=== PATIENT | female | born 1965 | race Caucasian/White ===

== ENCOUNTER → 2019-03-25 10:51 | Outpatient (CLI) | payer OTHER, SELFPAY ==
--- NOTE | 2019-03-25 10:55 | XR_ITS ---
PROCEDURE: XR FOOT WT BEARING RT 3V CLINICAL INDICATION: pain Right foot pain COMPARISON: No exams were available for comparison FINDINGS: No fracture or dislocation. No lytic or blastic change. There is normal mineralization. There are mild osteoarthritic changes at the 1st MTP joint with hypertrophic change of the distal aspect of the 1st metatarsal. Small calcaneal spurs noted Other findings:None. 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
--- NOTE | 2019-03-25 10:55 | XR_ITS ---
PROCEDURE: XR FOOT WT BEARING LT 3V CLINICAL INDICATION: pain COMPARISON: XR FOOT WT BEARING RT 3V from 03/25/2019 FINDINGS: No fracture or dislocation. No lytic or blastic change. There is normal mineralization. There are minimal osteoarthritic changes of the 1st MTP joint with mild bony hypertrophy at the distal aspect of the 1st metatarsal. There is some hypertrophy also along the lateral aspect of the 2nd MTP joint. Small calcaneal spurs present. Other findings:None. IMPRESSION: Mild osteoarthritis 1st MTP joint with bony hypertrophy at the lateral aspect of the 2nd metatarsophalangeal joint Dictated by: Manuelito Daniel MD 03/25/2019 12:33 Electronically signed by Manuelito Daniel MD in [place] 03/25/2019 12:33
[2019-03-25 14:43] LABS: Basophils # 0.1 K/mm3 (0-0.2); Basophils % 0.7 % (0.1-2.0); Eosinophils # 0.2 K/mm3 (0.0-0.4); Eosinophils % 1.7 % (0.1-12.0); Hematocrit 49.4 % (37.0-47.0); Lymphocytes # 2.9 K/mm3 (0.7-4.5); Lymphocytes % 24.4 % (10-50); Mean Corpuscular HGB Conc 32.5 g/dL (31.8-35.4); Mean Corpuscular Hemoglobin 31.6 pg (27.0-31.2); Mean Corpuscular Volume 97.2 fl (81-99); Mean Platelet Volume 7.8 fl (7.4-10.4); Monocytes # 0.4 K/mm3 (0.1-1.0); Monocytes % 3.4 % (1.7-9.3); Neutrophils # 8.4 K/mm3 (1.8-7.8); Neutrophils % 69.7 % (37.0-80.0); Platelet Count 228 K/mm3 (142-424); Red Blood Count 5.08 M/mm3 (4.20-5.40); Red Cell Distribution Width 13.7 % (11.5-17.5)
[2019-03-25 16:15] LABS: Alanine Aminotransferase 27 U/L (12-78); Albumin/Globulin Ratio 1.5 (1.1-1.8); Alkaline Phosphatase 51 U/L (46-116); Aspartate Amino Transferase 16 U/L (15-37); Bilirubin,Total 0.4 mg/dL (0.2-1.0); Blood Urea Nitrogen 12 mg/dL (7-18); Calcium 9.4 mg/dL (8.5-10.1); Carbon Dioxide 30 mmol/L (21.0-32.0); Chloride 107 mmol/L (98-107); Creatinine,Serum 0.77 mg/dL (0.55-1.02); Estimated Glomerular Filt Rate 78 ml/min (>60); GFR (African American) 94 ML/MIN (>60); Globulin 2.7 gm/dl (1.3-3.2); Glucose 98 mg/dL (74-106); Sodium 144 mmol/L (136-145); Total Protein,Serum 6.7 gm/dL (6.4-8.2)
[2019-03-25 16:17] LABS: C-Reactive Protein < 0.2 mg/dL (0.0-0.9)
[2019-03-25 16:21] LABS: Erythrocyte Sedimentation Rate 38 mm/hr (0-30)
== END ==
PROVIDERS: PCP Family Medicine; Visit Provider Podiatrist
DX: M79.672 Pain in left foot (principal); M79.671 Pain in right foot; T81.49XA Infection following a procedure, other surgical site, initial encounter
CPT/HCPCS: 36415; 73630; 80053; 85025; 85651; 86140

== ENCOUNTER → 2019-04-01 15:39 | Outpatient (POV) | payer OTHER, SELFPAY | PROVIDERS: Visit Provider Specialist | DX: M79.604 Pain in right leg (principal); M79.671 Pain in right foot; R20.2 Paresthesia of skin | CPT/HCPCS: 95886; 95910 ==

== ENCOUNTER → 2019-04-19 14:18 | Outpatient (CLI) | payer OTHER, SELFPAY ==
[2019-04-19 14:42] LABS: Blood Urea Nitrogen 14 mg/dL (7-18); Estimated Glomerular Filt Rate 87 ml/min (>60); GFR (African American) 105 ML/MIN (>60)
== END ==
PROVIDERS: Visit Provider Podiatrist
DX: T81.41XA Infection following a procedure, superficial incisional surgical site, initial encounter (principal)
CPT/HCPCS: 36415; 82565; 84520

== ENCOUNTER → 2019-04-19 14:59 | Outpatient (CLI) | payer OTHER, SELFPAY ==
--- NOTE | 2019-04-19 15:02 | MR_ITS ---
PROCEDURE: MR FOOT RT WO/W CON CLINICAL INDICATION: eval. for abscess/ bone infection Previous surgery with plantar fasciectomy with pain and redness, infected postop wound COMPARISON: XR FOOT WT BEARING LT 3V from 03/25/2019 TECHNIQUE: Routine multiplanar multi echo sequences are performed without and with gadolinium enhancement. FINDINGS: No obvious fracture or dislocation. There is increased T2 signal involving the proximal and mid aspect of the 2nd metatarsal. This does show some mild enhancement. There is some increase in T2 signal of the soft tissues surrounding the proximal aspect of the 2nd metatarsal with some mild enhancement.. At the proximal and medial aspect of the plantar fascia just distal to the spur of the calcaneus there is some soft tissue thickening with isointensity on T1 slightly hyperintense on the STIR images with some mild enhancement. This may represent postsurgical scarring. Cannot exclude underlying inflammation/infection. This does not appear to be an abscess.. There is some increased T2 signal surrounding the peroneal tendons suggesting tendonitis the. There is some mild enhancement in this area as well. There is mild hallux valgus with osteoarthritic change of the 1st MTP joint. IMPRESSION: 1. At the proximal and medial aspect of the plantar fascia just distal to the spur of the calcaneus there is some soft tissue thickening with isointensity on T1 slightly hyperintense on the STIR images with some mild enhancement. This may represent postsurgical scarring. Cannot exclude underlying inflammation/infection. This does not appear to be an abscess.. 2. Mild diffuse increased T2 signal with some mild enhancement at the proximal mid aspect of the 2nd metatarsal with some mild enhancement of the surrounding soft tissues. This is nonspecific and could be inflammatory/infectious or even due to a stress fracture. Please correlate with clinical parameters Dictated by: Manuelito Daniel MD 04/22/2019 05:38 Electronically signed by Manuelito Daniel MD in [place] 04/22/2019 05:38
== END ==
PROVIDERS: Visit Provider Podiatrist
DX: T81.41XA Infection following a procedure, superficial incisional surgical site, initial encounter (principal); T81.49XA Infection following a procedure, other surgical site, initial encounter; T81.40XA Infection following a procedure, unspecified, initial encounter
CPT/HCPCS: 36415; 73720; 82565; 84520; A9576

== ENCOUNTER → 2019-05-21 11:11 | Outpatient (CLI) | payer OTHER, SELFPAY ==
[2019-05-21 12:06] LABS: Basophils # 0.1 K/mm3 (0-0.2); Basophils % 0.8 % (0.1-2.0); Eosinophils # 0.2 K/mm3 (0.0-0.4); Eosinophils % 2.6 % (0.1-12.0); Hematocrit 51.1 % (37.0-47.0); Hemoglobin 16.7 g/dL (12.2-16.2); Lymphocytes # 2.1 K/mm3 (0.7-4.5); Lymphocytes % 30.2 % (10-50); Mean Corpuscular HGB Conc 32.7 g/dL (31.8-35.4); Mean Corpuscular Hemoglobin 31.2 pg (27.0-31.2); Mean Corpuscular Volume 95.3 fl (81-99); Mean Platelet Volume 8.1 fl (7.4-10.4); Monocytes # 0.3 K/mm3 (0.1-1.0); Monocytes % 4.9 % (1.7-9.3); Neutrophils # 4.3 K/mm3 (1.8-7.8); Neutrophils % 61.6 % (37.0-80.0); Platelet Count 226 K/mm3 (142-424); Red Blood Count 5.36 M/mm3 (4.20-5.40); Red Cell Distribution Width 13.1 % (11.5-17.5)
[2019-05-21 13:22] LABS: Alanine Aminotransferase 23 U/L (12-78); Albumin Level 3.9 gm/dL (3.4-5.0); Albumin/Globulin Ratio 1.3 (1.1-1.8); Alkaline Phosphatase 48 U/L (46-116); Anion Gap 14.3 mEq/L (5-15); Aspartate Amino Transferase 9 U/L (15-37); Bilirubin,Total 0.5 mg/dL (0.2-1.0); Blood Urea Nitrogen 14 mg/dL (7-18); Calcium 9.4 mg/dL (8.5-10.1); Carbon Dioxide 28 mmol/L (21.0-32.0); Chloride 103 mmol/L (98-107); Creatinine,Serum 0.69 mg/dL (0.55-1.02); Estimated Glomerular Filt Rate 88 ml/min (>60); GFR (African American) 107 ML/MIN (>60); Globulin 2.9 gm/dl (1.3-3.2); Glucose 87 mg/dL (74-106); Potassium 4.3 mmoL/L (3.5-5.1); Sodium 141 mmol/L (136-145); Total Protein,Serum 6.8 gm/dL (6.4-8.2)
[2019-05-21 13:27] LABS: C-Reactive Protein < 0.2 mg/dL (0.0-0.9)
[2019-05-21 15:49] LABS: Erythrocyte Sedimentation Rate 6 mm/hr (0-30)
== END ==
PROVIDERS: Visit Provider Podiatrist
DX: T81.49XA Infection following a procedure, other surgical site, initial encounter; G89.18 Other acute postprocedural pain; T81.41XA Infection following a procedure, superficial incisional surgical site, initial encounter
CPT/HCPCS: 36415; 80053; 85025; 85651; 86140

== ENCOUNTER → 2020-03-10 13:14 | Outpatient (CLI) | payer OTHER, SELFPAY ==
--- NOTE | 2020-03-10 13:17 | MM_ITS ---
PROCEDURE: MM DIG SCREENING MAMM BI W/CAD Referring Doctor: Callum Leiva Patient Age:54Y CLINICAL INDICATION: SCREENING: No hormones, no new complaints. Noncontributory family history. Previous stereotactic biopsy left breast COMPARISON: MG DIGMAMMDX MAMMOGRAM DX-MANAGER OF DEVELOPMENT N/C from 04/06/2009 MG DMSB DIGITAL MAMM-SCREEN BILATERAL from 10/01/2010 MG DMSB DIGITAL MAMM-SCREEN BILATERAL from 10/03/2012 TECHNIQUE: Standard CC and MLO images were obtained. R2 CAD reviewed. Bilateral digital breast tomosynthesis included. Additional nipple profile view left breast included FINDINGS: Moderate asymmetry again noted and similar to previous studies but no significant new areas of concern. No suspicious new nor dominant mass. No suspicious calcifications. No significant architectural distortion Ijqt-aw-[id number] residual fibroglandular elements towards superior breast bilaterally Right breast. Stable. No new areas of concern.. Left breast: Stable appearance with no new areas of concern. Small metallic clip upper-outer quadrant left breast from previous stereotactic biopsy again noted IMPRESSION: stable bilateral mammogram with no new areas of concern. Bilateral follow-up 1 year recommended BI-RAD Category: 1 Negative FOLLOW-UP: 1YR 1 Year Follow-up (A letter has been sent to the patient regarding results of the study.) Dictated by: Ravi Barry MD 03/11/2020 12:56 Ravi Barry MD in [place] 03/11/2020 12:56
== END ==
PROVIDERS: PCP Family Medicine; Visit Provider Family Medicine
DX: Z12.31 Encounter for screening mammogram for malignant neoplasm of breast (principal)
CPT/HCPCS: 77063; 77067

== ENCOUNTER 2020-08-05 21:46 | Emergency (ER) | payer OTHER, SELFPAY ==
[2020-08-05 21:55] VITALS: BP 161/100; PULSE 66; RESP 17; O2SAT 98
[2020-08-05 21:56] VITALS: BP 161/100; PULSE 74; RESP 18; TEMP 37.1; O2SAT 99; BMI 33.8
[2020-08-05 22:00] VITALS: BP 150/84; PULSE 73; RESP 16; O2SAT 97
--- NOTE | 2020-08-05 22:05 | XR_ITS ---
PROCEDURE: XR HAND RT MIN 3V CLINICAL INDICATION: Small finger Distal joint deformity COMPARISON: No exams were available for comparison FINDINGS: Flexion deformity of the distal interphalangeal joint of the 5th digit is noted. Possible subluxation of the DIP joint. No evidence of avulsion fractures. No acute fractures or dislocations. Bone density is normal. The carpals, metacarpals and phalanges are otherwise unremarkable. No significant soft tissue abnormality is noted. IMPRESSION: Flexion deformity of the distal interphalangeal joint of the 5th digit. Possible subluxation of the DIP joint. No evidence of acute fractures. Dictated by: Valeria Peña 08/06/2020 08:23 Valeria Peña in [place] 08/06/2020 08:23
--- NOTE | 2020-08-05 22:06 | HMH.EDUPEXT ---
ED Disposition Clinical Impression: Rupture of extensor tendon of finger Disposition: Home, Self-Care Condition on Discharge: Good Instructions: DI for Finger Extensor Tendon Injury Additional Instructions: wear splint and call ortho in am Referrals: Callum Leiva [Primary Care Provider] - Eden Broussard MD [Physician] - - Critical Care Critical Care Time: No Attestation: On 08/05/20, the high probability of a clinically significant, sudden or life threatening deterioration of the following system(s) required my full and direct attention, intervention and personal management. The time I documented below is in addition to time spent performing reported procedures but includes the following listed in this critical care notation. Medical Decision Making - Medical Records Medical records reviewed: Yes: I reviewed the patient's medical records. - Rashel Inquiry Pt receiving controlled substance: No Vital Signs: 08/05/20 21:56 Temperature 98.8 F Temperature Source Oral Pulse Rate [Left] 74 Respiratory Rate 18 Blood Pressure [Right Arm] 161/100 H Blood Pressure Mean [Right Arm] 120 Blood Pressure Source [Right Arm] Automatic Cuff Blood Pressure Position [Right Arm] Sitting 02 Sat by Pulse Oximetry 99 Oxygen Delivery Method Room Air - Lab Data Lab results reviewed: Yes: I reviewed the patient's lab results. Orders (Tests/Meds): ORDERS Category Date Time Status XR hand RT min 3V Stat Exams 08/05/20 22:05 Taken - Radiology Data #1 Image(s): Hand Image Reviewed: Yes I reviewed the patient's radiology image Preliminary Findings: Abnormal (no fx /dislocation) Medical Decision Narrative: ext tendon injury rt fifth finger Upper Extremity HPI - General Chief Complaint: Extremity Injury, Upper Stated Complaint: AO 08/05@2100 injured R Hand Time Seen by Provider: 08/05/20 22:06 Mode of Arrival: Ambulatory Source of Information: Patient, Medical Record Limitations: No Limitations Description of Symptoms (Recalled from ER Triage Doc. by RN): Pt got finger caught up while cleaning bathroom and has deformity to distal joint on right little finger. - History of Present Illness HPI narrative: acute rt fifth finger injury arcelia - complaint: injury to: right, finger Onset (ago): hour(s) Other Extremity Injury: Right: fingers Handedness: right Place: home Severity: moderate Context: direct blow - Related Data Home Medications Medication Instructions Recorded Confirmed gabapentin 100 mg capsule 100 mg PO DAILY #90 cap 03/25/19 08/04/20 fluoxetine 10 mg capsule 10 mg PO DAILY 08/04/20 08/04/20 Previous Rx's Medication Instructions Recorded ibuprofen 800 mg tablet 800 mg PO BID #60 tab 12/23/19 meloxicam 7.5 mg tablet 7.5 mg PO DAILY 90 Days #90 tab 08/04/20 Allergies Allergy/AdvReac Type Severity Reaction Status Date / Time Penicillins [PENICILLINS] Allergy Intermediate SWELLING Verified 08/04/20 10:15 codeine [CODEINE] Allergy Mild VOMITING, Verified 08/04/20 10:15 WHIVES morphine [MORPHINE] Allergy Mild ITCHING Verified 08/04/20 10:15 AND VOMITING Sulfa (Sulfonamide Allergy Mild WHEEZES Verified 08/04/20 10:15 Antibiotics) [SULFA (SULFONAMIDE ANTIBIOTICS)] [facility] History - Hepatitis A Screen Drug use history?: No High risk sexual behaviors?: No History of sexually transmitted infection?: No Currently employed?: No Childcare worker?: No Do you have indoor plumbing?: Yes Do you have electricity?: Yes Attestation statement:: This patient has been screened for Hepatitis A risk factors. I have reviewed the patient's past medical history: Yes Laterality Cases: Right: Other, Bilateral: Tonsillectomy Other Surgeries: Yes: Colonoscopy Amputation: No Fractures: Yes Comment: Right plantar fascia repair 01/25/19. Anterior Cervical Surgery 3,4,5 2008. L3,4,5, Laminectomy. Rosotomy - Social History Smoking Status: Jasen
[2020-08-05 22:30] VITALS: BP 169/99; PULSE 74; RESP 16; O2SAT 98
[2020-08-05 22:38] VITALS: BP 136/81; PULSE 70; RESP 17; O2SAT 97
--- NOTE | 2020-08-05 22:55 | PC.NURSE ---
finger splint placed on right pinky finger.
[2020-08-05 22:57] VITALS: BP 138/82; PULSE 70; RESP 16; TEMP 37.1; O2SAT 97
== END 2020-08-05 23:00 | disposition home or self-care (01) ==
PROVIDERS: Emergency Provider Emergency Medicine; PCP Family Medicine
DX: S66.316A Strain of extensor muscle, fascia and tendon of right little finger at wrist and hand level, initial encounter (principal); W23.0XXA Caught, crushed, jammed, or pinched between moving objects, initial encounter; Y92.019 Unspecified place in single-family (private) house as the place of occurrence of the external cause; Z88.0 Allergy status to penicillin; Z88.2 Allergy status to sulfonamides; Z88.5 Allergy status to narcotic agent
CPT/HCPCS: 29125; 73130; 96372; 99282

== ENCOUNTER → 2020-08-17 10:00 | Outpatient (POV) | payer OTHER, SELFPAY ==
[2020-08-17 10:46] VITALS: BP 142/74; PULSE 74; RESP 18; O2SAT 98; BMI 34.2
--- NOTE | 2020-08-17 12:25 | HMH.PMCON ---
Assessment and Plan (1) CRPS (complex regional pain syndrome type I) Status: Chronic Qualifiers: Complex regional pain syndrome affected site: lower extremity Laterality: right Qualified Code(s): G90.521 - Complex regional pain syndrome I of right lower limb Category: Medical Code(s): G90.50 - Complex regional pain syndrome I, unspecified - Assessment and plan all Dx Assessment and Plan for all problems:: We will start this patient plan of care by changing her medicine from gabapentin to Lyrica 75 mg 1 p.o. twice daily. Also set her up for a sympathetic nerve block with PT following. I will follow-up with her after this reassess her symptoms at that time she has been instructed to call the office if she has any issues prior to her next appointment. Dr. Lopez has reviewed this note and agrees with this plan of care. This note was dictated using voice recognition software and may contain errors or omissions HPI - Data of Consult Consult date: 08/17/20 Requesting Physician: Amita Ryan APRN Primary Care Provider: Callum Leiva - Consult Narrative Reason for consult: CRPS right foot History of present illness: Ms. Dunbar is a 54 year old female who presents today for consultation regards to her CRPS of her right foot. Patient developed this after surgery in 2019. Patient has difficult time with mobility unless wearing a brace. Patient has noted swelling, color changes, temperature changes. She also has an extreme burning sensation in that area. She is currently on gabapentin and does not get much relief from it. Today we spent time discussing options in regards to CRPS treatment. CC: Amita Ryan APRN [facility] History I have reviewed the patient's past medical history: Yes Medical History: Reports:: Anxiety, Hypertension Denies:: Cancer, Diabetes Mellitus Type 1, Diabetes Mellitus Type 2, MRSA *Have you ever received a pneumonia vaccine?: Yes *Have you received a flu vaccine this season?: Yes Other Medical History: Reports: Arthritis Laterality Cases: Right: Other, Bilateral: Tonsillectomy Other Surgeries: Yes: Colonoscopy Amputation: No Fractures: Yes - *Social History Smoking Status: Current every day smoker Tobacco Type: cigarettes # Packs/Day (cigarettes): 1 Alcohol Intake: never Alcohol Intake Frequency:: a few times a month Substance Use Type: denies use *Occupational Status:: employed Housing: house Household Members: other *Travel in the last 8 weeks: None - Psychiatric History Pschychiatric History:: Reports:: Anxiety Family Hx:: Diabetes, Heart Attack, Cancer, Hyperlipidemia, Hypertension Review of Systems - Review of Systems ROS General: no recent weight change, no fever, no sleep disturbances Respiratory: no cough, no shortness of air, no recurring pulmonary infections Cardiovascular/Peripheral Vascular: No chest pain, No palpitations, no edema, no shortness of breath. Gastrointestinal: no new onset incontinence, normal bowel movements reported Genitourinary: no new onset incontinence Musculoskeletal: Right foot pain Psychiatric: normal mood/ affect Neurological: [denies new onset weakness in extremities], [denies new onset balance issues] Meds Home Medications Medication Instructions Recorded Confirmed Type gabapentin 100 mg capsule 100 mg PO DAILY #90 cap 03/25/19 08/07/20 History ibuprofen 800 mg tablet 800 mg PO BID #60 tab 12/23/19 08/07/20 Rx fluoxetine 10 mg capsule 10 mg PO DAILY 08/04/20 08/07/20 History meloxicam 7.5 mg tablet 7.5 mg PO DAILY 90 Days #90 tab 08/04/20 08/07/20 Rx Allergies Allergy/AdvReac Type Severity Reaction Status Date / Time Penicillins [PENICILLINS] Allergy Intermediate SWELLING Verified 08/07/20 10:04 codeine [CODEINE] Allergy Mild VOMITING, Verified 08/07/20 10:04 WHIVES morphine [MORPHINE] Allergy Mild ITCHING Verified 08/07/20 10:04 AND VOMITING Sulfa (Sulfonamide Allergy Mild WHEEZES Veri
== END ==
PROVIDERS: PCP Family Medicine; Visit Provider Clinical Nurse Specialist Family Health
DX: G90.521 Complex regional pain syndrome I of right lower limb (principal)
CPT/HCPCS: 99202; G0463

== ENCOUNTER 2020-09-11 09:49 | Day surgery (SDC) | payer OTHER, SELFPAY ==
[2020-09-11 10:02] VITALS: BP 154/95; PULSE 80; RESP 18; TEMP 36.6; O2SAT 98; BMI 34.0
[2020-09-11 10:30] VITALS: BP 133/85; PULSE 85; RESP 18
[2020-09-11 10:31] VITALS: BP 140/74; PULSE 88; RESP 18; O2SAT 98
--- NOTE | 2020-09-11 10:33 | P.PCN_ITS ---
- Procedure Date: 09/11/20 Time: 10:33 Anesthesiologist:: Jorje Lopez MD Complications:: None Pre-procedure Diagnosis:: Complex regional pain syndrome type 1 of the right lower extremity Post-procedure Diagnosis:: Same Indications for Procedure:: This patient is a pleasant 54-year-old white female who we are treating for complex regional pain syndrome type one of the right lower extremity. She developed this after surgery to her right foot and ankle in 2019. She has autonomic symptoms including swelling, discoloration, temperature changes burning, increased pain and decreased functionality. She is undergoing physical therapy without much success. We will do a epidural sympathetic block today to see if this will help with her pain symptoms and this is to be followed by physi china therapy today. Procedure Details:: Informed consent was obtained and the risk and benefits of the procedure was explained to the patient. The patient was taken to the procedure room. The patient was placed prone on the procedure table. The patient was prepped and draped in sterile fashion. C-arm fluoroscopy was used to view the lumbar spine. Skin and subcutaneous tissues were anesthetized using lidocaine. I placed an 18-gauge epidural needle and advanced into the L5-S1 interspace using fluoroscopic guidance and [id number] to air. After confirmation of needle placement in the epidural space with dye I injected 6 mL of lidocaine 1.5% with Depo-Medrol 80 mg. Patient tolerated the procedure well with no complications. Plan and Disposition:: She is to have physical therapy today. We will follow-up with her in 1 week. Will reevaluate her symptoms and plan on repeat lumbar epidural sympathetic block at that time again to be followed by physical therapy.
[2020-09-11 10:43] VITALS: BP 125/63; PULSE 71; RESP 18; O2SAT 98
== END 2020-09-11 10:44 | disposition home or self-care (01) ==
LOC: SC.PAINP 09:50
PROVIDERS: PCP Family Medicine; Visit Provider Anesthesiology
DX: G90.521 Complex regional pain syndrome I of right lower limb (principal); I10 Essential (primary) hypertension; M19.90 Unspecified osteoarthritis, unspecified site; F41.9 Anxiety disorder, unspecified; Z88.0 Allergy status to penicillin; Z88.6 Allergy status to analgesic agent; Z88.5 Allergy status to narcotic agent; Z88.2 Allergy status to sulfonamides; Z72.0 Tobacco use; F32.9 Major depressive disorder, single episode, unspecified
CPT/HCPCS: 62323; J1040; Q9966

== ENCOUNTER 2020-09-11 10:43 | Outpatient (RCR) | payer OTHER, SELFPAY ==
--- NOTE | 2020-09-11 11:38 | HMH.PTOPEV ---
PT Outpatient Evaluation Rehab PT Outpatient Evaluation Start: 09/11/20 11:22 Freq: Status: Active Protocol: Document 09/11/20 11:22 JAS (Rec: 09/11/20 11:38 JAS [id number]) Electronically Signed By Girish Menon, PT 09/11/20 11:22 Outpatient Therapy Subjective History Subjective History Pt reports failed R foot sx. ( plantar fascia repair) ~2 years. Pt reports R foot sustained severe (95%) nn damage, plantar fascia was not repaired, and now possesses CRPS in the R foot. Pt reports undergoing pain management injection this am to 'numb my right foot and leg, but it's my left leg that's completely numb.' Pt reports follow-up w/ Dr. Rowe in November, Dr. Lopez in late September, and [facility] for new R AFO ' soon'. Pt reports daily severe nn pain, severe weakness, and stiffness in R foot/ankle, 'he (original foot surgeon) ruined my life'. Chief Complaint Pain,Stiff,Swelling,Gives out/ Unstable,Paresthesia,Weakness Symptom Type Ache,Throb,Sharp,Dull,Stabbing ,Burning,Numbness,Tingling Symptoms Relieved By Brace/Support Symptoms Aggravated By Standing,Walking Prior Functional Limitations Standing,Walking Current Functional Limitations Standing,Walking Symptom Description Constant but Variable Level of pain today (0-10) 9 Pain scale - at its best (0-10) 9 Pain scale - at its worst (0-10) 10 Ankle/Foot Eval Gait Observation General Gait Pattern Observation Wide Based Gait Palpation Tenderness right Ankle/Foot Palpation Findings Tenderness Ankle/Foot Palpation Overall Comment 4/4 medial arch, medial ankle area, sx. incision-all hypersensitive ROM Ankle/Foot Dorsiflexion w/Knee Extended 0 Passive Range (degrees) Ankle/Foot Plantar Flexion Passive Range 0-45 of Motion (degrees) Ankle/Foot Eversion Passive Range of 0-12 Motion (degrees) Ankle/Foot Inversion Passive Range of 0-50 Motion (degrees) Ankle/Foot ROM Limitations Soft Tissue Tightness MMT Ankle Dorsiflexion Strength Grade 1 Trace Ankle Plantarflexion Strength Grade 1 Trace Foot Eversion Strength Grade 1 Trace Foot Inv
== END 2020-09-11 10:45 | disposition home or self-care (01) ==
LOC: PT 10:43
PROVIDERS: PCP Family Medicine; Visit Provider Clinical Nurse Specialist Family Health
DX: M79.671 Pain in right foot (principal)
CPT/HCPCS: 97163

== ENCOUNTER 2022-10-30 16:54 | Emergency (ER) | payer MEDICARE, MEDICAID, SELFPAY ==
[2022-10-30] VITALS (9 sets, daily range): BP systolic 112–133; BP diastolic 62–82; PULSE 70–82; RESP 16; TEMP 36.7; O2SAT 95–98; BMI 33.8
--- NOTE | 2022-10-30 17:03 | XR_ITS ---
PROCEDURE INFORMATION: Exam: XR Chest Exam date and time: 10/30/2022 5:13 PM Age: 56 years old Clinical indication: Pain; Chest pressure; Additional info: Cp TECHNIQUE: Imaging protocol: Radiologic exam of the chest. Views: 1 view. COMPARISON: ABDPELW/O CT ABD PELVIS W/O CONTRAST 10/23/2016 1:21 AM FINDINGS: Lungs: No evidence of pneumonia or interstitial edema. Pleural spaces: Unremarkable. No pleural effusion. No pneumothorax. Heart/Mediastinum: Unremarkable. No cardiomegaly. Bones/joints: Unremarkable. Intraperitoneal space: Situs solitus identified on prior CT abdomen and pelvis. IMPRESSION: No evidence of pneumonia or interstitial edema.
--- NOTE | 2022-10-30 17:03 | ECG_ITS ---
APPROVED REPORT Exam: Resting ECG HR:81 bpm ECG Measurements Heart Rate [address] 157 P 62 QRSd 103 QRS 49 QT 405 T 65 QTc 442 Conclusion SINUS RHYTHM LOW QRS VOLTAGE IN PRECORDIAL LEADS [QRS DEFLECTION < 1.0 mV IN CHEST LEADS] BORDERLINE ECG UNCONFIRMED REPORT Electronically signed by : Inderjit Ewing MD 10/31/2022 21:29:52
[2022-10-30 17:16] LABS: Chloride 99 mmol/L (98-107); Potassium 3.3 mmoL/L (3.5-5.1); Sodium 141 mmol/L (136-145)
[2022-10-30 17:18] LABS: Alanine Aminotransferase 56 U/L (12-78); Alkaline Phosphatase 67 U/L (38-126); Aspartate Amino Transferase 50 U/L (14-36); Bilirubin,Total 0.6 mg/dl (0.2-1.3); Blood Urea Nitrogen 13 mg/dl (7-17); Creatinine Clearance Estimated 93 mL/min (50-200); Estimated Glomerular Filt Rate 64 ml/min (>60); GFR (African American) 78 ML/MIN (>60)
[2022-10-30 17:19] LABS: Albumin Level 4.8 g/dl (3.5-5.0); Albumin/Globulin Ratio 1.5 (1.1-1.8); Anion Gap 17.3 mEq/L (5-15); Calcium 9.7 mg/dl (8.4-10.2); Carbon Dioxide 28 mmol/L (22.0-30.0); Globulin 3.3 g/dL (1.3-3.2); Glucose 129 mg/dl (74-100); Lipase 98 U/L (23-300); Total Protein,Serum 8.1 g/dl (6.3-8.2)
[2022-10-30 17:28] LABS: Basophils # 0.1 K/mm3 (0-0.2); Basophils % 0.6 % (0.1-2.0); Eosinophils # 0.1 K/mm3 (0.0-0.4); Eosinophils % 1.4 % (0.1-12.0); Hemoglobin 17.1 g/dL (12.2-16.2); Lymphocytes # 3.3 K/mm3 (0.7-4.5); Mean Corpuscular HGB Conc 36.3 g/dL (31.8-35.4); Mean Corpuscular Hemoglobin 33.2 pg (27.0-31.2); Mean Corpuscular Volume 91.2 fl (81-99); Mean Platelet Volume 8.4 fl (7.4-10.4); Monocytes # 0.4 K/mm3 (0.1-1.0); Monocytes % 4.3 % (1.7-9.3); Neutrophils % 60.8 % (37.0-80.0); Platelet Count 218 K/mm3 (142-424); Red Blood Count 5.15 M/mm3 (4.20-5.40); Red Cell Distribution Width 13.5 % (11.5-17.5); White Blood Count 9.9 K/mm3 (4.8-10.8)
--- NOTE | 2022-10-30 17:30 | HMH.EDGENADL ---
Discharge Plan Disposition Patient Disposition: Home, Self-Care Chief Complaint: Chest Pain Prescriptions Prescriptions: No Action gabapentin 100 mg capsule 100 mg PO TID Qty: 90 Label Comments: TAKE 1 CAPSULE BY MOUTH 3 TIMES A DAY duloxetine 60 mg capsule,delayed release(DR/EC) 60 mg PO nicotine 21 mg/24 hr patch 24 hour 1 patch TRANSDERMA meloxicam [Mobic] 7.5 mg tablet 7.5 mg PO DAILY 90 Days Qty: 90 2RF ibuprofen 800 mg tablet 800 mg PO BID Qty: 60 3RF Referrals Follow up/Referrals: Callum Leiva MD [Primary Care Provider] - See instructions Clinical Impressions Clinical Impression: Chest pain Discharge ED Provider: Mak Cordova General Adult HPI General Chief complaint: Chest Pain Stated complaint: Chest pain Time Seen by Provider: 10/30/22 17:02 Mode of Arrival: EMS Source of Information: Patient and EMS Limitations: No Limitations Description of Symptoms (Recalled from ER Triage Doc. by RN): 56 yo F presents to ED with c/o chest pain that began last night into today. pt reports pain has increased throughout the day. pt reports pain feels like an elephant is sitting on her chest. pain is located in middle of left chest. History of Present Illness HPI narrative: This is a 56-year-old female with history of COPD and tobacco use presenting with chest pain. Patient states that she started having chest pain 1 day prior to arrival. Today on 10/30, patient said that she was in the shower and syncopized. Woke up on the floor. Shortly thereafter she was sitting on the couch and had an intense chest pain. It felt like elephants or standing on my chest, did not radiate, associate with shortness of breath, multiple episodes of vomiting, diaphoresis, and weakness. Only medications patient takes are 800 mg ibuprofen daily and gabapentin. Currently presenting with the same symptoms. Related Data Home Medications Medication Instructions Recorded Confirmed duloxetine 60 mg capsule,delayed 60 mg PO 11/17/20 11/17/20 release gabapentin 100 mg capsule 100 mg PO TID Pain #90 caps 11/17/20 11/17/20 nicotine 21 mg/24 hr daily 1 patch transdermal 11/17/20 11/17/20 transdermal patch Previous Rx's Medication Instructions Recorded ibuprofen 800 mg tablet 800 mg PO BID pain, mild #60 tabs 12/23/19 meloxicam 7.5 mg tablet (Mobic) 7.5 mg PO DAILY pain 90 days #90 08/04/20 tabs Allergies Allergy/AdvReac Type Severity Reaction Status Date / Time Penicillins [PENICILLINS] Allergy Intermediate SWELLING Verified 11/17/20 11:28 codeine [CODEINE] Allergy Mild VOMITING, Verified 11/17/20 11:28 WHIVES morphine [MORPHINE] Allergy Mild ITCHING Verified 11/17/20 11:28 AND VOMITING Sulfa (Sulfonamide Allergy Mild WHEEZES Verified 11/17/20 11:28 Antibiotics) [SULFA (SULFONAMIDE ANTIBIOTICS)] [facility] Disclaimer: The information contained in this section may have been updated after the patient was seen, as this information can be updated by other users. Social History Smoking Status: Current every day smoker tobacco type: cigarettes packs per day: 1 second hand exposure: Yes alcohol intake: never substance use type: denies use current occupational status: disabled Travel in the last 8 weeks: None household members: other housing: house current occupational exposures/hazards: No caffeine: Yes ROS Obtained: Yes All systems reviewed & no additional complaints except as documented Physical Exam General General appearance: alert and in no apparent distress Head Head exam: atraumatic, normocephalic and normal inspection Eye Eye exam: Present normal appearance, PERRL and EOMI ENT ENT exam: Present normal exam, normal oropharynx, mucous membranes moist, TM's normal bilaterally and normal external ear exam Neck Neck exam: Present normal inspection, full ROM and trachea midline; Absent meningismus or lymphadenopathy
[2022-10-30 17:32] LABS: Troponin I < 0.01 ng/ml (0.00-0.034)
--- NOTE | 2022-10-30 20:02 | PC.NURSE ---
3 hr Trop sent
[2022-10-30 20:35] LABS: Troponin I < 0.01 ng/ml (0.00-0.034)
== END 2022-10-30 20:47 | disposition home or self-care (01) ==
PROVIDERS: Emergency Provider Emergency Medicine; PCP Family Medicine
DX: R07.89 Other chest pain (principal); R55 Syncope and collapse; J44.9 Chronic obstructive pulmonary disease, unspecified; R11.10 Vomiting, unspecified; F17.210 Nicotine dependence, cigarettes, uncomplicated
CPT/HCPCS: 71045; 80053; 83605; 83690; 84484; 85025; 93005; 99285

== ENCOUNTER → 2022-11-04 13:19 | Outpatient (CLI) | payer MEDICARE, MEDICAID, SELFPAY ==
--- NOTE | 2022-11-04 13:41 | MM_ITS ---
PROCEDURE INFORMATION: Exam: MG Bilateral Screening 3D Mammography Exam date and time: 11/04/2022 1:31 PM Age: 56 years old Clinical indication: Screening examination TECHNIQUE: Imaging protocol: Bilateral Screening tomosynthesis and 2D mammography including computer-aided detection (CAD) when performed. COMPARISON: 1. MG MM DIG SCREENING MAMM BI W/CAD 03/10/2020 1:28 PM 2. MG DMSB DIGITAL MAMM-SCREEN BILATERAL 10/03/2012 8:50 AM FINDINGS: MAMMOGRAPHY: Breast composition: There are scattered areas of fibroglandular density. Mass: None. Architectural distortion: None. Calcifications: No suspicious calcifications. Asymmetric density: None. Skin thickening: None. Axillary adenopathy: None. IMPRESSION: No mammographic evidence of malignancy. Annual screening is recommended unless otherwise clinically indicated. ASSESSMENT: BI-RADS Category 1: Negative
== END ==
PROVIDERS: PCP Family Medicine; Visit Provider Family Medicine
DX: Z12.31 Encounter for screening mammogram for malignant neoplasm of breast (principal)
CPT/HCPCS: 77063; 77067

== ENCOUNTER 2023-09-26 14:13 | Inpatient (IN) | payer MEDICARE, MEDICAID, SELFPAY ==
[2023-09-26] VITALS (23 sets, daily range): BP systolic 86–163; BP diastolic 53–82; PULSE 70–133; RESP 16–40; TEMP 36.4–38.6; O2SAT 92–100; BMI 35.4; BMI 30.2
--- NOTE | 2023-09-26 14:13 | ECG_ITS ---
APPROVED REPORT Exam: Resting ECG HR:108 bpm ECG Measurements Heart Rate 108 AXES MO 116 P 48 QRSd 88 QRS 40 QT 343 T 35 QTc 406 Conclusion SINUS TACHYCARDIA Electronically signed by : RADHA STARK, 09/28/2023 15:47:26
--- NOTE | 2023-09-26 14:18 | XR_ITS ---
FINAL REPORT CLINICAL HISTORY: fever tachycardia, cough, cp smoker no chest surgeries COMPARISON: 10/30/2022 FINDINGS: TWO-VIEW CHEST The heart size is normal. The mediastinum is normal. There is linear density in the minor fissure, probably related to small amount of fluid. There are mild chronic changes in both lungs. Fusion hardware is seen in the lower cervical spine. There is no pneumothorax. IMPRESSION: Linear density in the minor fissure, probably related to small amount of fluid. Reviewed, Interpreted and Dictated by Victor Hugo Hudson MD Transcribed by Maritza Neil Authenticated and [facility]
[2023-09-26 14:27] LABS: VBG Base Excess 1.9 mmol/L (-2.4-2.3); VBG HCO3 26.6 mmol/L (23-30); VBG Oxygen Saturation 76.7 % (50-70); VBG PCO2 43.4 mmol/L (35-51); VBG PH 7.41 mmol/L (7.31-7.41); VBG PO2 37.9 mmol/L (28-40); VBG Total CO2 27.9 mmol/L (23-27)
[2023-09-26 14:28] LABS: Basophils % 0.6 % (0.1-2.0); Eosinophils % 0.6 % (0.1-12.0); Hematocrit 45.4 % (37.0-47.0); Hemoglobin 15.6 g/dL (12.2-16.2); Lymphocytes # 0.5 K/mm3 (0.7-4.5); Lymphocytes % 7.4 % (10-50); Mean Corpuscular HGB Conc 34.4 g/dL (31.8-35.4); Mean Corpuscular Hemoglobin 31.9 pg (27.0-31.2); Mean Corpuscular Volume 92.7 fl (81-99); Mean Platelet Volume 8.9 fl (7.4-10.4); Monocytes # 0.1 K/mm3 (0.1-1.0); Monocytes % 0.8 % (1.7-9.3); Neutrophils # 6.6 K/mm3 (1.8-7.8); Neutrophils % 90.7 % (37.0-80.0); Platelet Count 152 K/mm3 (142-424); Red Blood Count 4.89 M/mm3 (4.20-5.40); Red Cell Distribution Width 14.7 % (11.5-17.5); White Blood Count 7.3 K/mm3 (4.8-10.8)
[2023-09-26 14:31] LABS: Lactate Venous 4.3 mmol/L (0.4-2.0)
[2023-09-26 14:33] LABS: Alanine Aminotransferase 61 U/L (12-78); Albumin Level 3.5 g/dl (3.5-5.0); Albumin/Globulin Ratio 1.2 (1.1-1.8); Alkaline Phosphatase 186 U/L (38-126); Anion Gap 14.5 mEq/L (5-15); Aspartate Amino Transferase 60 U/L (14-36); Bilirubin,Total 1.1 mg/dl (0.2-1.3); Blood Urea Nitrogen 17 mg/dl (7-17); Calcium 8.8 mg/dl (8.4-10.2); Carbon Dioxide 28 mmol/L (22.0-30.0); Chloride 99 mmol/L (98-107); Creatinine Clearance Estimated 72 mL/min (50-200); Estimated Glomerular Filt Rate 46 ml/min (>60); GFR (African American) 56 ML/MIN (>60); Glucose 135 mg/dl (74-100); Potassium 3.5 mmoL/L (3.5-5.1); Sodium 138 mmol/L (136-145); Total Protein,Serum 6.5 g/dl (6.3-8.2)
[2023-09-26 14:36] LABS: MANUAL DIFFERENTIAL MANUAL DIFFERENTIAL (MANUAL DIFF)
[2023-09-26] MEDS: KETOROLAC 30MG/ML VIAL 15 MG IV (14:47)
[2023-09-26] MEDS: ACETAMINOPHEN 1,000MG/100ML VIAL 1000 MG IV (14:47)
[2023-09-26 14:48] LABS: Troponin I < 0.01 ng/ml (0.00-0.034)
[2023-09-26] MEDS: LACTATED RINGERS 1000ML 1,000 ML 999 ML IV (14:48)
[2023-09-26 14:54] LABS: Lymphocytes % 10 % (10-50); Monocytes % 2 % (2-9); Neutrophils % 82 % (42-76); Platelet Estimate Normal; RBC Morphology Normal; Total Cells Counted 100; Toxic Granulation 1+
[2023-09-26 15:04] LABS: Thyroid Stimulating Hormone 1.78 uIU/mL (0.465-4.68)
--- NOTE | 2023-09-26 15:15 | ED_ITS ---
Discharge Plan Disposition Patient Disposition: Admitted Condition: Fair Clinical Impressions Clinical Impression: Pneumonia, Acute hypoxemic respiratory failure Discharge ED Provider: Flavia Duenas HPI General Chief Complaint: Chest Pain Stated Complaint: Chest Pain Time Seen by Provider: 09/26/23 14:18 Mode of Arrival: EMS Source of Information: Patient Limitations: No Limitations Description of Symptoms (Recalled from ER Triage Doc. by RN): Patient reports vomiting, headache, chest pressure and sob. History of Present Illness HPI narrative: Please note that above description of symptoms, in this electronic medical record under categorization of recalled from ER triage doctor by RN are reflective of an initial nursing assessment, however, is not reflective of my full history and physical exam that was personally taken and clarified. Consequentially, this preceding description of symptoms, which may include the patient's categorized chief complaint in the EMR, do not reflect my personal clinical impression, and the ultimate description of history of present illness and patient stated complaints should be deferred to this section of the note. Unless stated otherwise or congruent with this section of the note, additional signs, symptoms, or incongruence should be interpreted as inaccurate with my clinical impression. Related Data Home Medications Medication Instructions Recorded Confirmed gabapentin 100 mg capsule 400 mg PO TID Pain #90 caps 11/17/20 09/26/23 Previous Rx's Medication Instructions Recorded ibuprofen 800 mg tablet 800 mg PO BID pain, mild #60 tabs 12/23/19 Allergies Allergy/AdvReac Type Severity Reaction Status Date / Time Penicillins [PENICILLINS] Allergy Intermediate SWELLING Verified 11/17/20 11:28 codeine [CODEINE] Allergy Mild VOMITING, Verified 11/17/20 11:28 WHIVES morphine [MORPHINE] Allergy Mild ITCHING Verified 11/17/20 11:28 AND VOMITING Sulfa (Sulfonamide Allergy Mild WHEEZES Verified 11/17/20 11:28 Antibiotics) [SULFA (SULFONAMIDE ANTIBIOTICS)] [facility] Disclaimer: The information contained in this section may have been updated after the patient was seen, as this information can be updated by other users. Medical History Class II obesity Surgical History H/O foot surgery Family History (Updated 09/26/23 @ 17:43 by Daniele Wilkerson MD) Other Dementia Social History (Updated 09/26/23 @ 18:48 by Sonam Mcgill RN) Smoking Status: Current every day smoker tobacco type: cigarettes packs per day: 1 second hand exposure: Yes alcohol intake: never substance use type: denies use current occupational status: disabled Travel in the last 8 weeks: None household members: other housing: house current occupational exposures/hazards: No caffeine: Yes ROS Obtained: Yes All systems reviewed & no additional complaints except as documented Physical Exam General General appearance: alert Neck Neck exam: Present trachea midline Chest Chest inspection: Present normal inspection and symmetric chest wall rise Respiratory Respiratory exam: Present normal lung sounds bilaterally and wheezes (Right- sided isolated); Absent respiratory distress, stridor, accessory muscle use or prolonged expiratory phase Cardiovascular Cardiovascular exam: Present normal rhythm and tachycardia Abdominal Exam Abdominal exam: Present soft; Absent distention, tenderness or guarding Extremities Exam Extremities exam: Absent edema Neurological Exam Neurological exam: Present alert, oriented X3 and CN II-XII intact Skin Skin exam: Present warm and dry; Absent cyanosis, diaphoresis or pallor HEART Score HEART Score HEART Score assessment performed?: No Critical Care Critical Care Time Critical Care Time: Yes (resp) Attestation: On 09/26/23, the high probability of a clinically significant, sudden or life threatening deterioration of the following system(s) required my full and direct attention, intervention and personal management. The time I documented below is in addition to time spent performing reported procedures but includes the following listed in this critical care notation. Total Time Total Critical Care Time: 60 Medical Decision Making Medical Records Medical records reviewed: Yes I reviewed the patient's medical records. Rashel Inquiry Pt receiving controlled substance: No Rashel was queried for this patient: No Vital Signs Vital Signs: 09/26/23 14:14 09/26/23 14:30 09/26/23 15:45 Temperature 101.5 F H Temperature Source Oral Pulse Rate 103 H 96 H Pulse Rate [Radial] 109 H Respiratory Rate 16 Blood Pressure 117/54 L 123/71 Blood Pressure [Right Arm] 110/66 Blood Pressure Mean Blood Pressure Mean [Right Arm] 80 Blood Pressure Source Blood Pressure Source [Right Arm] Automatic Cuff Blood Pressure Position Blood Pressure Position [Right Arm] Sitting 02 Sat by Pulse Oximetry 92 L 94 L 95 Oxygen Delivery Method Room Air 09/26/23 16:01 09/26/23 16:30 09/26/23 17:01 Temperature Temperature Source Pulse Rate 95 H 98 H 97 H Pulse Rate [Radial] Respiratory Rate Blood Pressure 95/53 L 104/58 L 98/63 L Blood Pressure [Right Arm] Blood Pressure Mean 77 Blood Pressure Mean [Right Arm] Blood Pressure Source Blood Pressure Source [Right Arm] Blood Pressure Position Blood Pressure Position [Right Arm] 02 Sat by Pulse Oximetry 93 L 94 L 93 L Oxygen Delivery Method 09/26/23 17:06 09/26/23 17:45 09/26/23 18:13 Temperature 97.6 F Temperature Source Oral Pulse Rate 70 93 H 88 Pulse Rate [Radial] Respiratory Rate 20 Blood Pressure 89/62 L 86/58 L Blood Pressure [Right Arm] Blood Pressure Mean Blood Pressure Mean [Right Arm] Blood Pressure Source Automatic Cuff Blood Pressure Source [Right Arm] Blood Pressure Position Supine Blood Pressure Position [Right Arm] 02 Sat by Pulse Oximetry 92 L Oxygen Delivery Method Room Air Lab Data Labs: Lab Results 09/26/23 14:16: WBC 7.3, RBC 4.89, Hgb 15.6, Hct 45.4, MCV 92.7, MCH 31.9 H, MCHC 34.4, RDW 14.7, Plt Count 152, MPV 8.9, Neut % (Auto) 90.7 H, Lymph % (Auto) 7.4 L, [place] % (Auto) 0.8 L, Eos % (Auto) 0.6, Baso % (Auto) 0.6, Neut # (Auto) 6.6, Lymph # (Auto) 0.5 L, [place] # (Auto) 0.1, Eos # (Auto) 0.0, Baso # (Auto) 0.0, Total Counted 100, Neutrophils % (Manual) 82 H, Band Neutrophils % 4.0, Lymphocytes % (Manual) 10, Monocytes % (Manual) 2, Metamyelocytes % 2.0 H, Toxic Granulation 1+, Platelet Estimate Normal, RBC Morphology Normal, Sodium 138, Potassium 3.5, Chloride 99, Carbon Dioxide 28, Anion Gap 14.5, BUN 17, C reatinine 1.20 H, Estimated Creat Clear 72, Estimated GFR 46 L, Est GFR ( Amer) 56 L, Glucose 135 H, Calcium 8.8, Total Bilirubin 1.1, AST 60 H, ALT 61, A lkaline Phosphatase 186 H, Troponin I < 0.01, Total Protein 6.5, Albumin 3.5, Globulin 3.0, Albumin/Globulin Ratio 1.2, TSH 1.78 09/26/23 14:18: VBG pH 7.41, VBG pCO2 43.4, VBG pO2 37.9, VBG HCO3 26.6, VBG Total CO2 27.9 H, VBG O2 Saturation 76.7 H, VBG Base Excess 1.9, VBG Lactic Acid 4.3 H 09/26/23 14:50: Lactate 3.0 H 09/26/23 17:45: Troponin I < 0.01 09/26/23 14:16 09/26/23 14:16 Response Orders (Tests/Meds): ED MEDICATIONS Generic Name Dose Route Start Last Admin Trade Name Freq PRN Reason Stop Dose Admin Acetaminophen 650 mg 09/26/23 17:50 Acetaminophen 325mg Tab PO 10/26/23 17:49 Q4HP PRN Fever or Mild Pain (1-3) Levofloxacin/Dextrose 750 mg in 150 mls @ 100 mls/hr 09/26/23 17:30 09/26/23 18:40 Levofloxacin 750mg/150ml Premix IV 10/06/23 17:29 100 mls/hr Q24H ELKIN Administration Nicotine 21 mg 09/26/23 17:42 09/26/23 18:49 Nicotine 21mg/24hr Patch TD 10/26/23 17:41 21 mg DAILYP PRN Administration Nicotine Cravings Discontinued Medications Generic Name Dose Route Start Last Admin Trade Name Freq PRN Reason Stop Dose Admin Acetaminophen 1,000 mg 09/26/23 14:19 09/26/23 14:47 Acetaminophen 1,000mg/100ml Vial IV 09/26/23 14:20 1,000 mg ONCE ONE Administration Lactated Ringer's 1,000 mls @ 999 mls/hr 09/26/23 14:19 09/26/23 14:48 Lactated Ringer's 1000 Ml Bag IV 09/26/23 15:19 999 mls/hr .Q1H1M ONE Administration Cefepime HCl 2 gm/ Sodium 100 mls @ 200 mls/hr 09/26/23 15:01 09/26/23 17:36 Chloride IV 09/26/23 15:30 200 mls/hr ONCE ONE Administration Metronidazole 500 mg in 100 mls @ 100 mls/hr 09/26/23 15:01 09/26/23 16:50 Flagyl 500mg/100ml Ivpb IV 09/26/23 16:00 100 mls/hr ONCE ONE Administration Vancomycin/PEG/NADA/Lysine/Water 1.5 gm in 300 mls @ 150 mls/hr 09/26/23 15:15 09/26/23 18:41 Vancomycin 1.5gm/300ml (Peg) Premix IV 09/26/23 17:14 150 mls/hr ONCE ONE Administration Iopamidol 75 ml 09/26/23 18:12 09/26/23 18:13 Iopamidol-370 (76%);100ml Bottle IV 09/26/23 18:13 75 ml ONCE ONE Administration Ketorolac Tromethamine 15 mg 09/26/23 14:19 09/26/23 14:47 Ketorolac 30mg/Ml Vial IV 09/26/23 14:20 15 mg ONCE ONE Administration Miscellaneous 1 each 09/26/23 15:15 09/26/23 15:53 Vancomycin Consult Request NOTAPPLIC 10/26/23 15:14 1 each CONSULT PHARMACY ELKIN Administration Sodium Chloride 50 ml 09/26/23 18:12 09/26/23 18:13 0.9 % Sodium Chloride 50 Ml Vial IV 09/26/23 18:13 50 ml ONCE ONE Administration Sodium Chloride 10 ml 09/26/23 18:12 09/26/23 18:14 Sodium Chloride 0.9% 10ml Syr (Rad Only) IV 10/26/23 18:11 10 ml NEEDED PRN Administration Maintain IV Site ORDERS Category Date Time Status CTA Chest [CT angio chest PE protocol] Stat Cat Scan 09/26/23 17:40 Completed Cardiology Consult [Consult to Cardiology] [CONS] Cons 09/26/23 17:06 Active Routine CXR 2 view (NOT portable) [XR chest 2V] Stat Exams 09/26/23 14:18 Completed CBC w/Auto Diff [Complete Blood Count Auto Diff] Stat Lab 09/26/23 14:16 Completed CMP [Comprehensive Metabolic Panel] Stat Lab 09/26/23 14:16 Completed Complete Blood Count Auto Diff AMLAB Lab 09/27/23 06:00 Ordered Comprehensive Metabolic Panel AMLAB Lab 09/27/23 06:00 Ordered Lactic Acid Stat Lab 09/26/23 14:50 Completed Lipid Panel AMLAB Lab 09/27/23 06:00 Ordered Magnesium AMLAB Lab 09/27/23 06:00 Ordered TSH [Thyroid Stimulating Hormone] Stat Lab 09/26/23 14:16 Completed Trop I [Troponin I] Stat Lab 09/26/23 14:16 Completed Troponin I Q3H Lab 09/26/23 17:45 Completed Troponin I Q3H Lab 09/26/23 20:30 Ordered Blood Culture Stat Micro 09/26/23 15:05 Received VBG [Venous Blood Gas] Stat RT 09/26/23 14:18 Completed MDM Narrative Medical Decision Narrative: 57-year-old female history of hypertension, hyperlipidemia, current tobacco use disorder presenting with chest pain. Patient states symptoms started reports got here around 11 AM, started with substernal chest pain that did not radiate. She began having vomiting, diaphoresis, shortness of breath. States that she felt febrile and clammy. Cough is nonproductive. Came for further evaluation. History was obtained via conversation with patient. On arrival, patient hemodynamically stable, alert, oriented x4, appropriate, GCS 15, moving all extremities spontaneously, pupils equal and reactive to light. Full physical exam performed and significant for chronically ill-appearing woman who is in no acute distress. She is febrile and tachycardic, widened pulse pressure 110/66. Lungs are clear to auscultation with the exception of wheezes that are isolated to the right side anteriorly. Cardiac exam within normal limits without lower extremity swelling. Pulses are equal and symmetric in upper and lower extremities. Speaking in complete sentences. Differential includes microvascular coronary artery disease, CHF, ACS, OR, coronary artery dissection, pneumothorax, PE, dissection, pericarditis, myocarditis, pneumothorax, aortic aneurysm, pneumonia, bronchitis, among others. Patient was given 324 mg aspirin with EMS, vancomycin, cefepime, Flagyl for symptomatic management and correction of underlying abnormalities. Workup independently interpreted and significant for no white count, but patient has VBG concerning for lactic acid of 4.3. Creatinine 1.2. Troponin negative. Chest x-ray with acute right-sided consolidation. See radiology read for full review of final results. Independent interpretation of EKG shows sinus tachycardia with no ST or T wave changes concerning for acute schema. OK, QRS, QT intervals within normal limits with normal axis. Patient placed on continuous cardiac monitoring and continuous pulse ox with initial blood pressure 110/66, heart rate 109, saturation 92% on room air. On reevaluation, patient rl at baseline, intermittently hypoxemic, but at rest appears fine. Hospital medicine was contacted and case was discussed at length, patient to be admitted for pneumonia with hypoxemic respiratory failure. Because patient high risk for clinical decompensation, deemed appropriate for inpatient admission. Results were relayed to patient who voiced understanding and patient was agreeable to inpatient admission and management. Patient was admitted to the hospital for further definitive management. Composition Worker disclaimer Much of this encounter note is an electronic barrel reamer spoken language to printed text. Electronic barrel reamer of the spoken language may permit errors. Although I have reviewed the note, some errors may still exist.
[2023-09-26] MEDS: VANCOMYCIN CONSULT REQUEST 1 EACH NOTAPPLIC (15:53)
[2023-09-26] MEDS: METRONIDAZ/SOD CHL 500 MG/100 ML PIGGYBACK 100 MG IV (16:50)
--- NOTE | 2023-09-26 17:19 | EXP.HP ---
History of Present Illness *Admission Date: 09/26/23 *Reason for visit:: chest pain, N/V *History of present illness: Ms. Dunbar is a 7-year-old female with history of tobacco use, 55-vjbl-ptlb history, neuropathy, and class 2 obesity. She presented to the ER because of onset of chest pressure, shortness of breath, vomiting and headache. States that for the past 3 to 4 days she has been having a headache that comes up the back of her shoulders over the back of her head that is severe at times. Will feel hot and then cold. Today she was getting ready to go mow when she had onset of chest pressure, like a brick on her chest across the front of her chest. Shortly thereafter she developed shortness of breath and nausea and vomiting. Denies ever having symptoms like this before. Her mother called EMS for evaluation and to bring her to the ER. On arrival, patient found to be febrile with fever of 101.5. O2 sats in the. Patient tachycardic. Workup with normal white count but neutrophil predominance of 90%. Blood gas normal. Lactic acid elevated. Initial troponin obtained less than 0.01. EKG obtained showing no acute ischemic changes. Chest x-ray obtained showing linear density at fissure in right lung field. No significant airspace disease or consolidation. Medicine salted for admission. On evaluation, patient is on 2 L oxygen initially. Oxygen was turned off with sats remaining 90 to 92%. Fever improved. Feeling little bit better after getting some IV fluids and antibiotics. Chest pressure still present but better. No longer having any nausea or vomiting. Does complain of some epigastric pain at this time. Patient hemodynamically stable. Admitted for observation and cardiology consult given chest pressure. [facility] Disclaimer: The information contained in this section may have been updated after the patient was seen, as this information can be updated by other users. Medical History Class II obesity Surgical History H/O foot surgery Family History (Updated 09/26/23 @ 17:43 by Daniele Wilkerson MD) Dementia Social History Smoking Status: Current every day smoker tobacco type: cigarettes packs per day: 1 second hand exposure: Yes alcohol intake: never substance use type: denies use current occupational status: disabled Travel in the last 8 weeks: None household members: other housing: house current occupational exposures/hazards: No caffeine: Yes Review of Systems Review of Systems Review of systems (narrative): 14 point review of systems performed, pertinent positives and negatives as per HPI Meds Home Medications and Allergies Home Medications Medication Instructions Recorded Confirmed Type ibuprofen 800 mg tablet 800 mg PO BID pain, mild #60 tabs 12/23/19 11/17/20 Rx meloxicam 7.5 mg tablet (Mobic) 7.5 mg PO DAILY pain 90 days #90 08/04/20 11/17/20 Rx tabs duloxetine 60 mg capsule,delayed 60 mg PO 11/17/20 11/17/20 History release gabapentin 100 mg capsule 100 mg PO TID Pain #90 caps 11/17/20 11/17/20 History nicotine 21 mg/24 hr daily 1 patch transdermal 11/17/20 11/17/20 History transdermal patch New Prescriptions to Start Prescriptions: Allergies Allergy/AdvReac Type Severity Reaction Status Date / Time Penicillins [PENICILLINS] Allergy Intermediate SWELLING Verified 11/17/20 11:28 codeine [CODEINE] Allergy Mild VOMITING, Verified 11/17/20 11:28 WHIVES morphine [MORPHINE] Allergy Mild ITCHING Verified 11/17/20 11:28 AND VOMITING Sulfa (Sulfonamide Allergy Mild WHEEZES Verified 11/17/20 11:28 Antibiotics) [SULFA (SULFONAMIDE ANTIBIOTICS)] Exam Data for Last 24 hours Vital signs and Labs for Last 24 Hours: Temp Pulse Resp BP Pulse Ox O2 Del Method 101.5 F H 98 H 16 104/58 L 94 L Room Air 09/26/23 14:14 09/26/23 16:30 09/26/23 14:14 09/26/23 16:30 09/26/23 16:30 09/26/23 14:14 Laboratory Results - last 24 hr 09/26/23 14:16: WBC 7.3, RBC 4.89, Hgb 15.6, Hct 45.4, MCV 92.7, MCH 31.9 H, MCHC 34.4, RDW 14.7, Plt Count 152, MPV 8.9, Neut % (Auto) 90.7 H, Lymph % (Auto) 7.4 L, [place] % (Auto) 0.8 L, Eos % (Auto) 0.6, Baso % (Auto) 0.6, Neut # (Auto) 6.6, Lymph # (Auto) 0.5 L, [place] # (Auto) 0.1, Eos # (Auto) 0.0, Baso # (Auto) 0.0, Total Counted 100, Neutrophils % (Manual) 82 H, Band Neutrophils % 4.0, Lymphocytes % (Manual) 10, Monocytes % (Manual) 2, Metamyelocytes % 2.0 H, Toxic Granulation 1+, Platelet Estimate Normal, RBC Morphology Normal, Sodium 138, Potassium 3.5, Chloride 99, Carbon Dioxide 28, Anion Gap 14.5, BUN 17, Creatinine 1.20 H, Estimated Creat Clear 72, Estimated GFR 46 L, Est GFR ( Amer) 56 L, Glucose 135 H, Calcium 8.8, Total Bilirubin 1.1, AST 60 H, ALT 61, Alkaline Phosphatase 186 H, Troponin I < 0.01, Total Protein 6.5, Albumin 3.5, Globulin 3.0, Albumin/Globulin Ratio 1.2, TSH 1.78 09/26/23 14:18: VBG pH 7.41, VBG pCO2 43.4, VBG pO2 37.9, VBG HCO3 26.6, VBG Total CO2 27.9 H, VBG O2 Saturation 76.7 H, VBG Base Excess 1.9, VBG Lactic Acid 4.3 H 09/26/23 14:50: Lactate 3.0 H I & O for Last 24 hours: Intake & Output 09/23/23 09/24/23 09/25/23 09/26/23 23:59 23:59 23:59 23:59 Weight 90.718 kg Constitutional Constitutional: no acute distress, obese and cooperative *Routine HEENT Exam Head: Present normocephalic Eye: Present EOMI and PERRL ENT: Present mucous membranes moist *Routine Neck Exam Neck: Present supple; Absent lymphadenopathy Routine Chest/Breast/Axilla Exam Chest wall: Absent tenderness *Routine Respiratory Exam Respiratory: Present CTA bilaterally; Absent rhonchi, wheezes or crackles *Routine Cardiovascular Exam Cardiovascular: Present RRR *Routine Abdominal Exam Abdominal: Present soft and normoactive bowel sounds; Absent tenderness *Routine Rectal Exam Rectal:: deferred *Routine Genitalia Exam Genitalia:: deferred *Routine Extremities Exam Extremities: Absent cyanosis, clubbing or edema Comments: Right leg with AFO *Routine Skin Exam Skin: Present warm; Absent rash *Routine Neurological Exam Neurological: Present alert, oriented X3 and moving all extremities; Absent altered mental status Assessment and Plan *Assessment and plan (1) Chest pain: Status: Acute Qualifiers: Chest pain type: unspecified Qualified Code(s): R07.9 - Chest pain, unspecified Category: Medical Code(s): R07.9 - Chest pain, unspecified (2) COPD exacerbation: Status: Acute Category: Medical Code(s): J44.1 - Chronic obstructive pulmonary disease with (acute) exacerbation (3) Class II obesity: Status: Acute Category: Medical Code(s): E66.9 - Obesity, unspecified (4) Tobacco use disorder: Status: Acute Category: Medical Code(s): F17.200 - Nicotine dependence, unspecified, uncomplicated Plan Ms. Dunbar is a 57-year-old female who presented to the ER with onset of chest pressure, shortness of breath, nausea and vomiting. Concern for unstable angina versus COPD exacerbation versus pneumonia versus intrathoracic vascular problem. CTA of the chest pending. Discussed case with ER physician, request admission for further monitoring. Medicine agreed to admit for cardiology eval and serial troponins overnight. Continue antibiotics at this time. Wean oxygen as tolerated. Problems addressed as follows: Unstable angina Shortness of breath -Unclear etiology, chest pain with concerning symptoms of pressure, onset of vomiting, shortness of breath. -Initial troponin less than 0.01, repeat troponin pending -Given character of pain between her shoulders causing headache and then onset of chest pain, will obtain CTA of the chest to better evaluate thoracic vasculature for PE versus fluid in fissure on the right side versus dissection. Further management pending image results -chest x-ray personally reviewed, no consolidation but does have prominent right fissure/linear density in right chest. Further evaluate with CT as above -Transition to levofloxacin 750 mg daily. Blood cultures pending -Supplemental oxygen as needed, goal sats greater 90%. -Will hold on aspirin and Plavix till CTA obtained to rule out dissection -Cardiology consulted, appreciate their recommendations -Monitor on telemetry overnight -Tylenol 650 every 4 hours as needed for fever CBC, CMP, magnesium ordered for the morning. Tobacco use disorder: Nicotine patch as needed Full code Cardiac diet, n.p.o. at midnight Holding on anticoagulation pending CT
[2023-09-26] MEDS: CEFEPIME HCL 2 GM in 0.9 % SODIUM CHLORIDE 100 ML IV (17:36)
--- NOTE | 2023-09-26 17:40 | CT_ITS ---
PROCEDURE INFORMATION: Exam: CTA Chest With Contrast Exam date and time: 09/26/2023 5:49 PM Age: 57 years old Clinical indication: Chest wall pain; Additional info: Chest pain, dyspnea TECHNIQUE: Imaging protocol: Computed tomographic angiography of the chest with contrast. Exam focused on the arteries. 3D rendering (Not supervised by radiologist): MIP and/or 3D reconstructed images were created by the technologist. Radiation optimization: All CT scans at this facility use at least one of these dose optimization techniques: automated exposure control; mA and/or kV adjustment per patient size (includes targeted exams where dose is matched to clinical indication); or iterative reconstruction. Contrast material: ISOVUE 370; Contrast volume: 75 ml; Contrast route: INTRAVENOUS (IV); COMPARISON: CR XR CHEST 2V 09/26/2023 2:41 PM and 10/30/2022 FINDINGS: Pulmonary arteries: Normal. No pulmonary emboli. Aorta: Unremarkable. No aortic aneurysm. No aortic dissection. Lungs: Small to moderate-sized area opacity in the posterior right lower lobe may reflect atelectasis and/or developing infiltrates. Additional parenchymal bands in the right lower lobe and right middle lobe and upper lobe and to lesser degree posterior left lower lobe compatible with subsegmental atelectasis. Lung oneal otherwise clear. Pleural spaces: Unremarkable. No pneumothorax. No pleural effusion. Heart: Unremarkable. No cardiomegaly. No pericardial effusion. Esophagus: Diffuse mild esophageal wall thickening suggesting esophagitis. Lymph nodes: Unremarkable. No enlarged lymph nodes. Liver: Fatty liver changes are noted. Bones/joints: Unremarkable. No acute fracture. Soft tissues: Unremarkable. IMPRESSION: 1. No evident PE. 2. Posterior right lower lobe opacity may be atelectasis but cannot exclude developing pneumonia. Consider follow-up to ensure resolution. 3. Bilateral parenchymal bands compatible with subsegmental atelectasis [id number]. 4. Additional nonemergent findings as above.
--- OUTSIDE RECORDS SUMMARY | 2023-09-26 17:41 | XMS_ITS | Clinical Summary ---
Author Name Unknown Address [address] [place] [address] Phone Organization [facility] Address [address] [place] [address] Phone Care Team Providers Care Brinell Tester Name Role Phone Hao ROBERSON, Brant Jaramillo [facility] [ ] Conditions or Problems Problem Name Problem Code Onset Date Status Entry Date Provider Comment Standard Description Annotate Diarrhea 12677228 (SNOMED CT) 01/31 Active 01/31 Brant Bui MD Diarrhea Hematuria, microscopic 961965620 (SNOMED CT) 01/27 Active 01/27 Sofia Nilton Microscopic hematuria Neutrophilic leukemoid reaction D72.823 (ICD-10-CM ) 01/27 Active 01/27 Sofia Nilton Leukemoid reaction Nicotine dependence, cigarettes F17.210 (ICD-10-CM ) 01/27 Active 01/27 Teodoro P Nicotine dependence, cigarettes, uncomplicated Diverticulitis of large intestine with perforation, abscess without bleeding K57.20 (ICD-10-CM ) 01/27 Active 01/27 Ángela W Diverticulitis of large intestine with perforation and abscess without bleeding Medications Medication Instructions Start Date Stop Date Generic Name NDC Provider INVANZ 1 GM INTRAVENOUS SOLUTION RECONSTITUTED 1gm IV Q24hrs/ INPAT ERTAPENEM SODIUM 86304163703 Niki Barreto RN INVANZ 1 GM INTRAVENOUS SOLUTION RECONSTITUTED 1gm IV Q24hrs/ INPAT ERTAPENEM SODIUM [id number] Lacie Rebollar FLORASTOR 250 MG CAPS by mouth twice daily SACCHAROMYCES BOULARDII [id number] Teodoro P PERCOCET 5-325 MG TABS 1-2 tabs by mouth as needed every six hours OXYCODONE-ACETAM INOPHEN [id number] Teodoro P ALEVE 220 MG CAPS by mouth twice daily as needed NAPROXEN SODIUM [id number] Teodoro P BUPROPION HCL ER (SMOKING DET) 150 MG [id number] by mouth twice daily BUPROPION HCL (SMOKING DETER) [id number] Teodoro P Medications Administered No information available. Allergies, Adverse Reactions, Alerts Allergy Name Reaction Description Start Date Severity Statu s Provider SULFA Moderate Active Teodoro P PENICILLIN of particular note, patient has tolerated Merrem so far. For her penicillin reaction, she denies anaphylaxis/angioedema/urticaria/bro nchospasm or hypotension. Moderate Active Teodoro P MORPHINE Moderate Active Teodoro P Results Date Name Value Unit Range Flag Description Lab Report: CBC WITH AUTO DI FFERENTIAL IMMATUREGRAN 0.04 10*3/MM3 0.00-0.03 H Immature granulocytes [#/volume] in Blood BASO# 0.04 10*3/mm3 0.00-0.20 Basophils [#/volume] in Blood EOS ABSLT 0.14 10*3/uL 0.10-0.30 Eosinophi ls [#/volume] in Blood MONOSCT AUTO 0.62 10*3/uL 0.00-1.00 Monocy shon [#/volume] in Blood by Automated count LYMPHCT AUTO 2.29 10*3/mm3 0.60-4.80 Lymph ocytes [#/volume] in Blood by Automated count ABS NEUTROPH 7.45 10*3/uL 1.50-8.30 Neutro phils [#/volume] in Blood IMM GRANU % 0.4 % 0.0-0.6 Immature granulocytes/100 leukocytes in Blood [id number] 0.4 % 0.0-1.0 GE use only - for Link[employer] import when terms are not otherwise specified % EOS AUTO 1.3 % 0.0-3.0 Eosinophil s/100 leukocytes in Blood by Automated count MONOCYTE % 5.9 % 0.0-12.0 Monocytes /100 leukocytes in Blood by Automated count LYMPHOCY BF 21.6 % 24.0-44.0 L lymphoc ytes as percent of body fluid leukocytes PMN % 70.4 % 41.0-71.0 Neutrophils /100 leukocytes in Blood by Automated count PLATELETS 272 10*3/mm3 150-450 Platelets [#/volume] in Blood by Automated count RDW 13.1 % 11.3-14.5 Erythrocyte distribution width [Ratio] by Automated count MCHC 33.7 G/DL 32.0-36.0 MCHC [Mass/ volume] by Automated count MCH 31.9 pg 27.0-31.0 H MCH [Entiti c mass] by Automated count MCV 94.6 fL 80.0-99.0 MCV [Entiti c volume] by Automated count HCT 47.2 % 34.5-44.0 H Hematocrit [Volume Fraction] of Blood by Automated count HGB 15.9 g/dL 11.5-15.5 H Hemoglobin [Mass/volume] in Blood RBC 4.99 10*6/mm3 3.89-5.14 Erythrocyt es [#/volume] in Blood by Automated count WBC 10.58 10*3/mm3 3.50-10.80 Leukocyte s [#/volume] in Blood by Automated count Lab Report: C-REACTIVE PROTE IN CRPCARDRISK 0.90 MG/DL 0.00-10.00 C reac tive protein [Mass/volume] in Serum or Plasma Lab Report: COMPREHENSIVE ME TABOLIC PANEL ANIONGAP 4.0 mmol/L 3.0-11.0 anion gap, serum BUN/CREAT 17.1 7.0-25.0 Urea nitrogen/Creatinine [Mass Ratio] in Serum or Plasma GFRC 88 mL/min/1 .73m2 >60 Glomerular Filtration Rate Calculation BILI TOTAL 0.2 mg/dL 0.3-1.2 L Bilirubin. total [Mass/volume] in Serum or Plasma ALK PHOS 49 U/L 25-100 Alkaline phosphatase [Enzymatic activity/volume] in Blood SGOT (AST) 17 U/L 0-33 Aspartate aminotransferase [Enzymatic activity/volume] in Serum or Plasma SGPT (ALT) 20 U/L 7-40 Alanine aminotransferase [Enzymatic activity/volume] in Serum or Plasma ALBUMIN 4.20 g/dL 3.20-4.80 Albumin [Mass/volume] in Serum or Plasma PROTEIN, TOT 6.6 g/dL 5.7-8.2 Protein [Mass/volume] in Serum or Plasma CALCIUM 9.5 mg/dL 8.7-10.4 Calcium [Moles/volume] in Serum or Plasma CO2 32.0 mmol/L 20.0-31.0 H Carbon diox helen, total [Moles/volume] in Venous blood CHLORIDE 107 mmol/L 99-109 Chloride [Moles/volume] in Serum or Plasma POTASSIUM 4.8 mmol/L 3.5-5.5 Potassium [Moles/volume] in Serum or Plasma SODIUM 143 mmol/L 132-146 Sodium [Moles/volume] in Serum or Plasma CREATININE 0.70 mg/dL 0.60-1.30 Creatini ne [Mass/volume] in Serum or Plasma BUN 12 mg/dL 9-23 Urea nitrogen [Mass/volume] in Serum or Plasma GLUCOSE SER 78 mg/dL 70-100 Glucose [Mass/volume] in Serum or Plasma Lab Report: SEDIMENTATION RA TE ESR 2 mm/h 0-30 Erythrocyte sedimentation rate by Westergren method Office Visit: 13 MEDS REVIEW Done Documenta tion of current medications (procedure) SMOK ADVICE yes Smoking c essation education (procedure) CIGARET SMKG yes Tobacco smoking status SMOK STATUS Current every day smoker Tobacco smoking status Lab Report: CLOSTRIDIUM DIFF ICILE TOXIN, PCR C DIFFIC TOX Not Detected Negative Cl ostridioides difficile toxin A+B [Presence] in Stool by Immunoassay Plan of Care Type Date Detail Pending order Continue IV anti biotics Pending order C-Diff PCR Pending order Continue IV anti biotics Pending order Weekly Labs (Con tinue) Pending order CMP Pending order CBC with Differe ntial Pending order Stat Weekly Labs Pending order Hepatitis C Atb: (ICD 10 Code: Z11.59) Pending order New IV antibioti c Pending order Ertapenem Patient education HOW%20TO%20STO P%20SMOKING Procedures Code Procedure Name Date Entry Date CPT-ca Continue IV antibiotics 2015 CPT-cdpcr C-Diff PCR CPT-ca Continue IV antibiotics 2015 CPT-cwl Weekly Labs (Continue) 01/31 CPT-50509 CMP [id number],[id number] CBC with Differential 2015 CPT- stat weekly Stat Weekly Labs 64611 Hepatitis C Atb: (ICD 10 Code: Z11.59) 20 21/01/23 CPT-brianne New IV antibiotic CPT-J1335 Ertapenem Vital Signs Date Name Value Unit Description BMI (Body Mass Index) 29.90 kg/m2 Bod y Mass Index (Ratio) Body Temperature 98.4 [degF] temperat ure E&M BP Diastolic 60 mm[Hg] blood pressu re, diastolic BP Systolic 110 mm[Hg] blood pressur e, systolic Heart Rate 72 /min pulse rate Respiratory Rate 16 /min respirat ory rate E&M Weight Measured 174.2 [lb_av] weight E& M Height 64 [in_us] height E&M Immunizations No information available. Advance Directives Directive Description Start Date NO ADVANCED DIRECTIVES
--- NOTE | 2023-09-26 17:51 | PC.NURSE ---
report given to RASHAWN Leavitt. RAD taken patient. Will call second floor when she returns.
[2023-09-26] MEDS: IOPAMIDOL-370 (76%);100ML BOTTLE 75 ML IV (18:13)
[2023-09-26] MEDS: 0.9 % SODIUM CHLORIDE 50 ML VIAL IV (18:13)
[2023-09-26] MEDS: SODIUM CHLORIDE 0.9% 10ML SYR (RAD ONLY) 10 ML IV (18:14)
--- NOTE | 2023-09-26 18:16 | PC.NURSE ---
Patient returned back from [facility] from 18:10, second floor was called to let them know patient was ready to be transferred upstairs.
[2023-09-26 18:30] LABS: Reflex Lactic Add Lactic Reflex
[2023-09-26 18:38] LABS: Troponin I < 0.01 ng/ml (0.00-0.034)
[2023-09-26] MEDS: LEVOFLOXACIN/D5W 750 MG/150 ML 750 MG/150 ML PIGGYBACK 100 MG IV (18:40)
[2023-09-26] MEDS: VANCOMYCIN/WATER FOR INJ (PEG) 1.5 GM/300 ML PIGGYBACK IV (18:41)
[2023-09-26] MEDS: NICOTINE 21MG/24HR PATCH 21 MG TD (18:49)
[2023-09-26 19:01] LABS: Lactic Acid Follow Up (RFLX 1) 2.7 mmol/L (0.7-2.1)
--- NOTE | 2023-09-26 20:32 | ECG_ITS ---
APPROVED REPORT Exam: Resting ECG HR:130 bpm ECG Measurements Heart Rate 130 AXES FL 172 P 61 QRSd 92 QRS 47 QT 287 T 31 QTc 364 Conclusion SINUS TACHYCARDIA LOW QRS VOLTAGE IN PRECORDIAL LEADS [QRS DEFLECTION < 1.0 mV IN CHEST LEADS] ABNORMAL RHYTHM ECG UNCONFIRMED REPORT Electronically signed by : Inderjit Ewing MD 09/27/2023 07:52:27
[2023-09-26] MEDS: METHYLPREDNISOLONE SOD SUCC 40MG VIAL 40 MG IV (20:43)
[2023-09-26 20:48] LABS: Reflex Lactic (2 hrs) Add Lactic Reflex
[2023-09-26] MEDS: FUROSEMIDE 40MG/4ML VIAL 40 MG IV (21:04)
[2023-09-26] MEDS: ONDANSETRON 4MG/2ML VIAL 4 MG IV (21:05)
--- NOTE | 2023-09-26 22:38 | PC.NURSE ---
AT THE START OF THIS RN'S SHIFT, THIS RN WENT INTO THIS PT'S ROOM AND INTRODUCED MYSELF, EXPLAINED TO THE PT THAT SHE HAD NO PM MEDS ORDERED OF NOW, AND DID MY SHIFT ASSESSMENT. PT WAS CALM, NO SIGNS OF DISTRESS, DENIED PAIN, AND ASKED FOR A SNACK BEFORE BED. THIS RN GOT PT'S REQUESTED SNACK AND EDUCATED PT ON THE CALL LIGHT AND TO USE IF NEEDED. THIS RN ALSO EXPLAINED ROUNDS TO PT SO SHE WAS AWARE THAT WE WILL BE IN AND OUT OF HER ROOM CHECKING ON HER, BUT TO USE CALL LIGHT IF SHE NEEDED SOMETHING. @2025: SRNA ENTERS ROOM FOR VS; PT IS IN DISTRESS AND THIS RN WAS NOTIFIED BY TECH. THIS RN NOTIFIED RT TO COME TO BEDSIDE AND ASSESS PT FOR POSSIBLE RESP. DISTRESS. THIS RN PLACED PT ON NRB 15L FOR NOTED RESP. DISTRESS AND WHEEZING. PT WAS CYANOTIC DURING RESP. DISTRESS EPISODE AND ALSO C/O CHILLS AND HAVING UNCONTROLLABLE TREMORS; ORAL TEMP NOTED TO BE 101.3 AT THIS TIME; MD WAS MADE AWARE OF TEMP. RT GAVE PT A STAT DUONEB TO HELP WITH WHEEZING AND AIR MOVEMENT. THIS RN PAGED HOSPITALISTIRIS MD TO BEDSIDE FOR AN ASSESSMENT AND POSSIBLE NEW ORDERS. PT STATED TO HAVE CHEST PAIN AND TIGHTNESS; STAT EKG OBTAINED. @2029: MD AT BEDSIDE FOR ASSESSMENT AND NEW VERBAL ORDERS GIVEN AND PLACED; SEE ORDERS / MAR. @2042: PT WAS PLACED ON BIPAP PER MD VERBAL ORDER. @2056: PT WAS HAVING EMESIS, BIPAP DC'D, VENTI MASK PLACED FOR RISK OF ASPIRATION; PAGED FOR EMESIS; SEE NEW ORDERS / MAR. @2114 5L NC PLACED ON PT D/T MAINTAINING GOOD O2 SATS AND NO LONGER IN RESP. DISTRESS. @2124 MANCIA CATHETER ANCHORED PER MD VERBAL ORDER D/T LASIX AND STRICT I/O FOR NOW.
[2023-09-26 22:49] LABS: Lactic Acid Follow up (RFLX 2) 3.3 mmol/L (0.7-2.1)
[2023-09-26 22:56] LABS: Troponin I 0.04 ng/ml (0.00-0.034)
[2023-09-26] MEDS: IPRATROPIUM/ALBUTEROL 3 ML NEB IH (23:13)
[2023-09-27] VITALS (13 sets, daily range): BP systolic 93–113; BP diastolic 42–69; PULSE 80–114; RESP 16–26; TEMP 36.7–37.9; O2SAT 91–100
[2023-09-27] MEDS: ACETAMINOPHEN 325MG TAB 650 MG PO ×2 (03:54→19:05)
[2023-09-27] MEDS: PANTOPRAZOLE 40MG VIAL 40 MG IV ×2 (03:54→20:37)
[2023-09-27] MEDS: KETOROLAC 30MG/ML VIAL 15 MG IV (03:54)
[2023-09-27] MEDS: METHYLPREDNISOLONE SOD SUCC 40MG VIAL 40 MG IV ×3 (03:54→20:37)
[2023-09-27 06:24] LABS: Alanine Aminotransferase 61 U/L (12-78); Albumin Level 3.1 g/dl (3.5-5.0); Albumin/Globulin Ratio 1.2 (1.1-1.8); Alkaline Phosphatase 108 U/L (38-126); Anion Gap 14.6 mEq/L (5-15); Aspartate Amino Transferase 51 U/L (14-36); Bilirubin,Total 0.7 mg/dl (0.2-1.3); Blood Urea Nitrogen 22 mg/dl (7-17); Calcium 8.3 mg/dl (8.4-10.2); Carbon Dioxide 26 mmol/L (22.0-30.0); Chloride 98 mmol/L (98-107); Chol/HDL Ratio 8.1 (1-3.5); Cholesterol 97 mg/dl (140-200); Creatinine Clearance Estimated 65 mL/min (50-200); Estimated Glomerular Filt Rate 38 ml/min (>60); GFR (African American) 47 ML/MIN (>60); Globulin 2.6 g/dL (1.3-3.2); Glucose 172 mg/dl (74-100); HDL Cholesterol 12 mg/dl (40-60); Magnesium 1.6 mg/dl (1.6-2.3); Potassium 3.6 mmoL/L (3.5-5.1); Sodium 135 mmol/L (136-145); Total Protein,Serum 5.7 g/dl (6.3-8.2); Triglycerides 171 mg/dl (30-150); VLDL Cholesterol 34 mg/dL (0-40)
[2023-09-27] MEDS: BUDESONIDE 0.5MG/2ML NEB 0.5 MG IH ×2 (06:33→18:42)
[2023-09-27] MEDS: IPRATROPIUM/ALBUTEROL 3 ML NEB IH ×4 (06:33→23:23)
[2023-09-27 06:35] LABS: Direct LDL Cholesterol 50.88 mg/dL (100-129)
--- NOTE | 2023-09-27 07:10 | CA_ITS ---
APPROVED REPORT EXAM: Comprehensive 2D, Doppler, and color-flow Echocardiogram Flatwork Assembler: Chantal Goncalves CRT Ht: 5 ft 10 in Wt: 210lbs BSA: 2.13 BP: 93/53 mmHg Indications: Chest Pain, COPD, Diabetes, Obesity, smoker 2D Dimensions Left Atrium 3.34 cm LVEF ([facility]) 62.70 % LVOT 1.92 cm (M/F) 1.5-2.5 LV Volume 73.10 mL LA Volume 32.50 mL LA Volume Index 15.30 mL/m2 (M/F) 16-34 EF AP4 64.90 % EF AP2 63.8 % EF BP 62.7 % GL Strain -22.1 % M-Mode Dimensions RVDd 2.29 cm (0.9-2.6) LVDd 4.08 cm (3.5-5.7) Ao Diam 3.25 cm (2.0-3.7) LVDs 2.61 cm (3.5-5.7) IVSd 1.82 cm (0.6-1.1) PWd 0.57 cm (0.6-1.1) EF (Teich) 66.20% FS 36.00% EDV (Teich) 73.40 mL TAPSE 2.29 (<1.7) ESV (Teich) 24.80 mL LV Diastology MED E' 9.6 (>= 7 cm/sec) MED A' 11.60 cm/s LAT E' 11.1 (>= 10 cm/sec) LAT A' 13.60 cm/s Aortic Valve LVOT Max 174.0 (70-110 cm/s) CANDIDO Index 0.79 cm2/m2 LVOT VTI 30.85 cm AoV Peak Adan. 303.0 (50-130 cm/s) AO Peak GR. 14.30 mmHg AO Mean GR. 17.80 (<5 mmHg) AO VTI 53.3 (18-25 cm) CANDIDO (VTI) 1.68 (2.5-4.5 cm2) Tricuspid Valve TR P. Velocity 309.00 cm/s RAP Estimate 10.00 mmHg RVSP 48.10 mmHg Left Ventricle The left ventricle is normal size. The left ventricular systolic function is normal. The left ventricular ejection fraction is within the normal range. There is normal left ventricular wall thickness. There is normal LV segmental wall motion. The left ventricular diastolic function is normal. LVEF is 60%. Right Ventricle The right ventricle is normal size. The right ventricular systolic function is normal. Atria The left atrium size is normal. The right atrium size is normal. There is no Doppler evidence of interatrial shunt. Aortic Valve The aortic valve is mildly thickened There is no aortic valvular stenosis. Trace aortic regurgitation. Mitral Valve The mitral valve is normal in structure. No evidence of mitral valve stenosis. Trace mitral regurgitation. Tricuspid Valve The tricuspid valve leaflets are thin and pliable. Trace tricuspid regurgitation. Pulmonic Valve The pulmonary valve is normal in structure. Trace pulmonic regurgitation. Great Vessels The aortic root is normal in size. The ascending aorta is not well-visualized. IVC is normal in size and collapses >50% with inspiration. Pericardium There is no pericardial effusion. Other Information Study Quality: Fair Conclusion Normal biventricular systolic function. No significant valvular stenosis or regurgitation. Electronically signed by : Reny Ballard MD 09/27/2023 12:20:40
[2023-09-27 07:16] LABS: Basophils # 0.1 K/mm3 (0-0.2); Basophils % 0.4 % (0.1-2.0); Eosinophils % 0.1 % (0.1-12.0); Hematocrit 41.6 % (37.0-47.0); Lymphocytes # 0.9 K/mm3 (0.7-4.5); Lymphocytes % 3.5 % (10-50); Mean Corpuscular HGB Conc 33.6 g/dL (31.8-35.4); Mean Corpuscular Hemoglobin 31.4 pg (27.0-31.2); Mean Corpuscular Volume 93.4 fl (81-99); Mean Platelet Volume 10.5 fl (7.4-10.4); Monocytes # 0.5 K/mm3 (0.1-1.0); Monocytes % 1.9 % (1.7-9.3); Neutrophils % 94.2 % (37.0-80.0); Platelet Count 108 K/mm3 (142-424); Red Blood Count 4.46 M/mm3 (4.20-5.40); Red Cell Distribution Width 14.6 % (11.5-17.5); White Blood Count 24.4 K/mm3 (4.8-10.8)
--- NOTE | 2023-09-27 07:24 | P.CONPHA_ITS ---
Pharmacy Intervention Comments: HOME MEDICATION LIST VERIFIED USING LIST FROM [facility]
--- NOTE | 2023-09-27 07:24 | HMH.PHAINT1 ---
Pharmacy Intervention Comments: HOME MEDICATION LIST VERIFIED USING LIST FROM [facility]
[2023-09-27 07:58] LABS: MANUAL DIFFERENTIAL MANUAL DIFFERENTIAL (MANUAL DIFF)
--- NOTE | 2023-09-27 08:41 | P.CONCA_ITS ---
History of Present Illness History of Present Illness Consult date: 09/27/23 Requesting physician: Daniele Wilkerson Consult reason: chest pain Chief complaint: chest pain Additional Medical History:: 1. Diabetes mellitus, type II A. Recently diagnosed 2023 2. Tobacco use of 1 pack/day for greater than 40 years A. COPD 3. Obesity 4. Chronic pain with history of gabapentin use History of present illness: 57-year-old female history of hypertension, hyperlipidemia, current tobacco use disorder presenting with chest pain. Patient states symptoms started reports got here around 11 AM, started with substernal chest pain that did not radiate. She began having vomiting, diaphoresis, shortness of breath. States that she felt febrile and clammy. Cough is nonproductive. Came for further evaluation. History was obtained via conversation with patient. On arrival, patient hemodynamically stable, alert, oriented x4, appropriate, GCS 15, moving all extremities spontaneously, pupils equal and reactive to light. Full physical exam performed and significant for chronically ill-appearing woman who is in no acute distress. She is febrile and tachycardic, widened pulse pressure 110/66. Lungs are clear to auscultation with the exception of wheezes that are isolated to the right side anteriorly. Cardiac exam within normal limits without lower extremity swelling. Pulses are equal and symmetric in upper and lower extremities. Speaking in complete sentences. Differential includes microvascular coronary artery disease, CHF, ACS, PR, coronary artery dissection, pneumothorax, PE, dissection, pericarditis, myocarditis, pneumothorax, aortic aneurysm, pneumonia, bronchitis, among others. Patient was given 324 mg aspirin with EMS, vancomycin, cefepime, Flagyl for symptomatic management and correction of underlying abnormalities. Workup independently interpreted and significant for no white count, but patient has VBG concerning for lactic acid of 4.3. Creatinine 1.2. Troponin negative. Chest x-ray with acute right-sided consolidation. See radiology read for full review of final results. Independent interpretation of EKG shows sinus tachyc ardia with no ST or T wave changes concerning for acute schema. GA, QRS, QT intervals within normal limits with normal axis. Patient placed on continuous cardiac monitoring and continuous pulse ox with initial blood pressure 110/66, heart rate 109, saturation 92% on room air. On reevaluation, patient rl at baseline, intermittently hypoxemic, but at rest appears fine. Hospital medicine was contacted and case was discussed at length, patient to be admitted for pneumonia with hypoxemic respiratory failure. Because patient high risk for clinical decompensation, deemed appropriate for inpatient admission. Results were relayed to patient who voiced understanding and patient was agreeable to inpatient admission and management. Patient was admitted to the hospital for further definitive management. The above per Mak Cordova MD for the ER Cardiology consulted for evaluation and recommendations Events as noted above confirmed with the patient. Chest pain is multifactorial with a component that is exacerbated by taking a deep breath but also has some chest wall tenderness with palpation. CT of the chest yesterday was negative for pulmonary embolus but did show evidence of esophagitis consistent with her recent vomiting episodes. No prior cardiac history but was recently diagnosed with diabetes. She is a longtime smoker. Initial troponins normal x 2 with a third troponin only mildly elevated at 0.04. Echocardiogram pending EKG in the ER shows sinus tachycardia at 108 bpm with low voltage and possible anterior PR with poor R wave progression anteriorly. Repeat EKG later in the evening shows sinus tachycardia at 130 bpm with no acute change. [facility] Disclaimer: The information contained in this section may have been updated after the patient was seen, as this information can be updated by other users. Medical History Class II obesity Surgical History H/O foot surgery Family History (Updated 09/26/23 @ 17:43 by Daniele Wilkerson MD) Other Dementia Social History (Updated 09/26/23 @ 18:48 by Sonam Mcgill RN) Smoking Status: Current every day smoker tobacco type: cigarettes packs per day: 1 second hand exposure: Yes alcohol intake: never substance use type: denies use current occupational status: disabled Travel in the last 8 weeks: None household members: other housing: house current occupational exposures/hazards: No caffeine: Yes Review of Systems Review of Systems Review of systems:: pertinent systems reviewed and negative unless documented below *Cardiovascular Cardiovascular: Reports chest pain and Reports dyspnea *Respiratory Respiratory: Reports cough and Reports dyspnea *Gastrointestinal Gastrointestinal: Denies loose stools and Reports vomiting Exam Data for Last 24 hours Vital signs and Labs for Last 24 Hours: Temp Pulse Resp BP Pulse Ox O2 Del Method O2 Flow Rate 98.1 F 85 18 93/53 L 94 L Nasal Cannula 3 09/27/23 07:44 09/27/23 08:00 09/27/23 07:44 09/27/23 07:44 09/27/23 08:00 09/27/23 08:00 09/27/23 08:00 Laboratory Results - last 24 hr 09/26/23 14:16: WBC 7.3, RBC 4.89, Hgb 15.6, Hct 45.4, MCV 92.7, MCH 31.9 H, MCHC 34.4, RDW 14.7, Plt Count 152, MPV 8.9, Neut % (Auto) 90.7 H, Lymph % (Auto) 7.4 L, Henderson % (Auto) 0.8 L, Eos % (Auto) 0.6, Baso % (Auto) 0.6, Neut # (Auto) 6.6, Lymph # (Auto) 0.5 L, Henderson # (Auto) 0.1, Eos # (Auto) 0.0, Baso # (Auto) 0.0, Total Counted 100, Neutrophils % (Manual) 82 H, Band Neutrophils % 4.0, Lymphocytes % (Manual) 10, Monocytes % (Manual) 2, Metamyelocytes % 2.0 H, Toxic Granulation 1+, Platelet Estimate Normal, RBC Morphology Normal, Sodium 138, Potassium 3.5, Chloride 99, Carbon Dioxide 28, Anion Gap 14.5, BUN 17, Creatinine 1.20 H, Estimated Creat Clear 72, Estimated GFR 46 L, Est GFR ( Amer) 56 L, Glucose 135 H, Calcium 8.8, Total Bilirubin 1.1, AST 60 H, ALT 61, Alkaline Phosphatase 186 H, Troponin I < 0.01, Total Protein 6.5, Albumin 3.5, Globulin 3.0, Albumin/Globulin Ratio 1.2, TSH 1.78 09/26/23 14:18: VBG pH 7.41, VBG pCO2 43.4, VBG pO2 37.9, VBG HCO3 26.6, VBG Total CO2 27.9 H, VBG O2 Saturation 76.7 H, VBG Base Excess 1.9, VBG Lactic Acid 4.3 H 09/26/23 14:50: Lactate 3.0 H 09/26/23 17:45: Troponin I < 0.01 09/26/23 18:44: Lactate 2.7 H 09/26/23 22:30: Lactate 3.3 H, Troponin I 0.04 H 09/27/23 05:39: WBC 24.4 H* D, RBC 4.46, Hgb 14.0 D, Hct 41.6, MCV 93.4, MCH 31.4 H, MCHC 33.6, RDW 14.6, Plt Count 108 L D, MPV 10.5 H, Neut % (Auto) 94.2 H , Lymph % (Auto) 3.5 L, Henderson % (Auto) 1.9, Eos % (Auto) 0.1, Baso % (Auto) 0.4, Neut # (Auto) 23.0 H, Lymph # (Auto) 0.9, Henderson # (Auto) 0.5, Eos # (Auto) 0.0, Baso # (Auto) 0.1, Sodium 135 L, Potassium 3.6, Chloride 98, Carbon Dioxide 26, Anion Gap 14.6, BUN 22 H D, Creatinine 1.40 H, Estimated Creat Clear 65, Estimated GFR 38 L, Est GFR ( Amer) 47 L, Glucose 172 H D, Calcium 8.3 L, Magnesium 1.6, Total Bilirubin 0.7, AST 51 H, ALT 61, Alkaline Phosphatase 108, Total Protein 5.7 L, Albumin 3.1 L D, Globulin 2.6, Albumin/Globulin Ratio 1.2, Triglycerides 171 H, Cholesterol 97 L, LDL Cholesterol Direct 50.88 L, VLDL Cholesterol 34, HDL Cholesterol 12 L, Cholesterol/HDL Ratio 8.1 H I & O for Last 24 hours: Intake & Output 09/24/23 09/25/23 09/26/23 09/27/23 11:59 11:59 11:59 11:59 Intake Total 240 / 240 Output Total 750 / 750 Balance -510 / -510 Weight 210 lb 1.608 oz Microbiology Reports for the Last 24 Hours: Microbiology 09/26/23 15:05 Blood Blood Culture - Preliminary 09/26/23 14:50 Blood Blood Culture - Preliminary Constitutional Constitutional: no acute distress *Routine Respiratory Exam Respiratory: Present rhonchi *Routine Cardiovascular Exam Cardiovascular: Present RRR; Absent murmur, gallop or rubs *Routine Extremities Exam Extremities: Absent cyanosis, clubbing or edema *Routine Neurological Exam Neurological: Present alert and oriented X3 Meds Home Medications and Allergies Home Medications Medication Instructions Recorded Confirmed Type furosemide 40 mg tablet 40 mg PO DAILY 09/26/23 09/26/23 History paroxetine HCl 10 mg tablet 10 mg PO DAILY 09/26/23 09/26/23 History ibuprofen 800 mg tablet 800 mg PO Q8HP PRN Mild Pain 09/27/23 09/27/23 History (Scale Score 1-4) ipratropium bromide 21 mcg (0.03 2 spray intranasal BID 09/27/23 09/27/23 History %) nasal spray New Prescriptions to Start Prescriptions: Allergies Allergy/AdvReac Type Severity Reaction Status Date / Time Penicillins [PENICILLINS] Allergy Intermediate SWELLING Verified 11/17/20 11:28 codeine [CODEINE] Allergy Mild VOMITING, Verified 11/17/20 11:28 WHIVES morphine [MORPHINE] Allergy Mild ITCHING Verified 11/17/20 11:28 AND VOMITING Sulfa (Sulfonamide Allergy Mild WHEEZES Verified 11/17/20 11:28 Antibiotics) [SULFA (SULFONAMIDE ANTIBIOTICS)] Assessment and Plan *Assessment and plan (1) Pneumonia: Status: Acute Qualifiers: Laterality: right Lung location: lower lobe of lung Pneumonia type: due to unspecified organism Qualified Code(s): J18.9 - Pneumonia, unspecified organism Category: Medical Code(s): J18.9 - Pneumonia, unspecified organism (2) Acute hypoxemic respiratory failure: Status: Acute Category: Medical Code(s): J96.01 - Acute respiratory failure with hypoxia (3) Chest pain: Status: Acute Qualifiers: Chest pain type: unspecified Qualified Code(s): R07.9 - Chest pain, unspecified Category: Medical Code(s): R07.9 - Chest pain, unspecified (4) Tobacco use disorder: Status: Acute Category: Medical Code(s): F17.200 - Nicotine dependence, unspecified, uncomplicated (5) Diabetes: Status: Acute Qualifiers: Diabetes mellitus complication status: without complication Diabetes mellitus lobsterman insulin use: without shelter use Diabetes mellitus type: type 2 Qualified Code(s): E11.9 - Type 2 diabetes mellitus without complications Category: Medical Code(s): E11.9 - Type 2 diabetes mellitus without complications Plan 1. Pneumonia with acute hypoxemic respiratory failure -On levofloxacin -On oxygen with pulmonary meds including DuoNeb, Pulmicort and steroids 2. Chest pain -Mild elevation of third and fourth troponin likely due to respiratory issues -Continue aspirin 81 mg daily -Echo EF 60% wihtout wall motion abnormalities -Will review CTA of chest and consider CCTA for further evaluation -Unable to add antianginal medication due to low blood pressure 3. Vomiting with esophagitis noted on CTA of the chest -Continue IV Protonix 4. Tobacco -Cessation recommended 5. Recently diagnosed diabetes -Defer to hospitalist Echocardiogram today shows EF 60% Reviewed CTA of the chest which shows only mild CAC of mid LAD Postponing interventional procedure at this time due to febrile nature with elevated white count. Plan outpatient ischemia workup when respiratory issues have resolved.
--- NOTE | 2023-09-27 08:46 | EXP.ACUTE.PN ---
Subjective *Date: 09/27/23 *Time: 17:50 Interval history: Patient had an episode overnight with vomiting, chills, what sounds like rigors. Necessitated increased support with IV fluids and increased oxygen support. Feeling better by morning. Denies any chest pain. Currently on 3 L oxygen. Given her tachycardia, tachypnea, jump in leukocytosis, patient needing more severe criteria with pneumonia. Truly met sepsis criteria overnight. Continues to necessitate inpatient management. Continue with levofloxacin. Reviewed chest imaging (CT) showing pneumonia on right side. Cardiology evaluating patient today. Medical Exam Vital signs and Labs for Last 24 Hours: Vital Signs Temp Pulse Pulse Pulse Resp BP BP 09/27/23 08:00 85 09/27/23 07:44 98.1 F 87 18 93/53 L 09/27/23 06:56 09/27/23 06:33 83 09/27/23 06:33 88 09/27/23 06:33 09/27/23 05:00 09/27/23 04:00 100 H 09/27/23 04:00 100.2 F H 99 H 26 H 107/45 L 09/27/23 03:00 09/27/23 01:00 09/27/23 00:00 98 H 09/27/23 00:00 99.4 F 101 H 16 105/42 L 09/26/23 23:39 89 09/26/23 23:39 88 09/26/23 23:30 100 H 17 09/26/23 23:00 99 H 21 100/60 L 09/26/23 23:00 09/26/23 22:30 105 H 20 107/59 L 09/26/23 22:00 107 H 112/71 09/26/23 21:30 123 H 149/75 H 09/26/23 21:15 133 H 163/82 H 09/26/23 21:08 123 H 35 H 142/66 H 09/26/23 21:00 09/26/23 21:00 09/26/23 20:45 123 H 09/26/23 20:31 101.3 F H 125 H 40 H 159/72 H 09/26/23 20:30 122 H 09/26/23 20:30 09/26/23 20:30 09/26/23 20:26 109 H 09/26/23 20:00 09/26/23 20:00 101.3 F H 108 H 27 H 159/72 H 09/26/23 20:00 91 H 09/26/23 18:51 09/26/23 18:39 97.8 F 93 H 22 103/59 L 09/26/23 18:13 97.6 F 88 20 86/58 L 09/26/23 17:45 93 H 89/62 L 09/26/23 17:06 70 09/26/23 17:01 97 H 98/63 L 09/26/23 16:30 98 H 104/58 L 09/26/23 16:01 95 H 95/53 L 09/26/23 15:45 96 H 123/71 09/26/23 14:30 103 H 117/54 L 09/26/23 14:14 101.5 F H 109 H 16 110/66 Pulse Ox O2 Del Method O2 Flow Rate 09/27/23 08:00 94 L Nasal Cannula 3 09/27/23 07:44 93 L Nasal Cannula 3 09/27/23 06:56 Nasal Cannula 3 09/27/23 06:33 09/27/23 06:33 09/27/23 06:33 91 L Nasal Cannula 2 09/27/23 05:00 Nasal Cannula 3 09/27/23 04:00 09/27/23 04:00 95 Nasal Cannula 3 09/27/23 03:00 Nasal Cannula 3 09/27/23 01:00 Nasal Cannula 3 09/27/23 00:00 09/27/23 00:00 100 Nasal Cannula 3 09/26/23 23:39 09/26/23 23:39 09/26/23 23:30 100 Nasal Cannula 3 09/26/23 23:00 100 Nasal Cannula 5 09/26/23 23:00 Nasal Cannula 5 09/26/23 22:30 Nasal Cannula 5 09/26/23 22:00 100 Nasal Cannula 5 09/26/23 21:30 99 Nasal Cannula 5 09/26/23 21:15 98 Nasal Cannula 5 09/26/23 21:08 98 Venturi Mask 09/26/23 21:00 Nasal Cannula 3 09/26/23 21:00 Venturi Mask 09/26/23 20:45 09/26/23 20:31 Non-Rebreather 15 09/26/23 20:30 09/26/23 20:30 Non-Rebreather 15 09/26/23 20:30 Non-Rebreather 15 09/26/23 20:26 09/26/23 20:00 Room Air 09/26/23 20:00 09/26/23 20:00 09/26/23 18:51 Room Air 09/26/23 18:39 94 L Room Air 09/26/23 18:13 Room Air 09/26/23 17:45 92 L 09/26/23 17:06 09/26/23 17:01 93 L 09/26/23 16:30 94 L 09/26/23 16:01 93 L 09/26/23 15:45 95 09/26/23 14:30 94 L 09/26/23 14:14 92 L Room Air Intake and Output 09/26/23 09/27/23 09/27/23 23:59 07:59 15:59 Intake Total 240 / 240 Output Total 0 / 0 750 / 750 Balance 240 / 240 -750 / -750 Intake: Intake, Oral Amount 240 / 240 Output: Output, Urine Amount 0 / 0 750 / 750 Other: Number of Unmeasured Voids 1 0 Weight 95.481 kg 95.3 kg Patient Weight 09/27/23 23:59 Weight 95.3 kg Laboratory Results - last 24 hr 09/26/23 14:16: WBC 7.3, RBC 4.89, Hgb 15.6, Hct 45.4, MCV 92.7, MCH 31.9 H, MCHC 34.4, RDW 14.7, Plt Count 152, MPV 8.9, Neut % (Auto) 90.7 H, Lymph % (Auto) 7.4 L, [place] % (Auto) 0.8 L, Eos % (Auto) 0.6, Baso % (Auto) 0.6, Neut # (Auto) 6.6, Lymph # (Auto) 0.5 L, [place] # (Auto) 0.1, Eos # (Auto) 0.0, Baso # (Auto) 0.0, Total Counted 100, Neutrophils % (Manual) 82 H, Band Neutrophils % 4.0, Lymphocytes % (Manual) 10, Monocytes % (Manual) 2, Metamyelocytes % 2.0 H, Toxic Granulation 1+, Platelet Estimate Normal, RBC Morphology Normal, Sodium 138, Potassium 3.5, Chloride 99, Carbon Dioxide 28, Anion Gap 14.5, BUN 17, Creatinine 1.20 H, Estimated Creat Clear 72, Estimated GFR 46 L, Est GFR ( Amer) 56 L, Glucose 135 H, Calcium 8.8, Total Bilirubin 1.1, AST 60 H, ALT 61, Alkaline Phosphatase 186 H, Troponin I < 0.01, Total Protein 6.5, Albumin 3.5, Globulin 3.0, Albumin/Globulin Ratio 1.2, TSH 1.78 09/26/23 14:18: VBG pH 7.41, VBG pCO2 43.4, VBG pO2 37.9, VBG HCO3 26.6, VBG Total CO2 27.9 H, VBG O2 Saturation 76.7 H, VBG Base Excess 1.9, VBG Lactic Acid 4.3 H 09/26/23 14:50: Lactate 3.0 H 09/26/23 17:45: Troponin I < 0.01 09/26/23 18:44: Lactate 2.7 H 09/26/23 22:30: Lactate 3.3 H, Troponin I 0.04 H 09/27/23 05:39: WBC 24.4 H* D, RBC 4.46, Hgb 14.0 D, Hct 41.6, MCV 93.4, MCH 31.4 H, MCHC 33.6, RDW 14.6, Plt Count 108 L D, MPV 10.5 H, Neut % (Auto) 94.2 H, Lymph % (Auto) 3.5 L, [place] % (Auto) 1.9, Eos % (Auto) 0.1, Baso % (Auto) 0.4, Neut # (Auto) 23.0 H, Lymph # (Auto) 0.9, [place] # (Auto) 0.5, Eos # (Auto) 0.0, Baso # (Auto) 0.1, Sodium 135 L, Potassium 3.6, Chloride 98, Carbon Dioxide 26, Anion Gap 14.6, BUN 22 H D, Creatinine 1.40 H, Estimated Creat Clear 65, Estimated GFR 38 L, Est GFR ( Amer) 47 L, Glucose 172 H D, Calcium 8.3 L, Magnesium 1.6, Total Bilirubin 0.7, AST 51 H, ALT 61, Alkaline Phosphatase 108, Total Protein 5.7 L, Albumin 3.1 L D, Globulin 2.6, Albumin/Globulin Ratio 1.2, Triglycerides 171 H, Cholesterol 97 L, LDL Cholesterol Direct 50.88 L, VLDL Cholesterol 34, HDL Cholesterol 12 L, Cholesterol/HDL Ratio 8.1 H I & O for Labs for Last 24 Hours: Intake & Output 09/24/23 09/25/23 09/26/23 09/27/23 23:59 23:59 23:59 23:59 Intake Total 240 / 240 Output Total 0 / 0 750 / 750 Balance 240 / 240 -750 / -750 Weight 95.481 kg 95.3 kg Microbiology Reports for the Last 24 Hours: Microbiology 09/26/23 15:05 Blood Blood Culture - Preliminary 09/26/23 14:50 Blood Blood Culture - Preliminary Constitutional: Present no acute distress Respiratory: Present normal respiratory effort Cardiac: Present Reg Rate and Rhythm GI: Present normal bowel sounds; Absent tenderness Extremities: Present normal inspection and full ROM Skin: Present intact; Absent erythema Neuro: Present Grossly Intact and moves all extremities Assessment and Plan *Assessment and plan (1) Sepsis: Status: Acute Category: Medical Code(s): A41.9 - Sepsis, unspecified organism (2) Pneumonia: Status: Acute Qualifiers: Laterality: right Lung location: lower lobe of lung Pneumonia type: due to unspecified organism Qualified Code(s): J18.9 - Pneumonia, unspecified organism Category: Medical Code(s): J18.9 - Pneumonia, unspecified organism (3) Chest pain: Status: Acute Qualifiers: Chest pain type: unspecified Qualified Code(s): R07.9 - Chest pain, unspecified Category: Medical Code(s): R07.9 - Chest pain, unspecified (4) Esophagitis: Status: Acute Category: Medical Code(s): K20.90 - Esophagitis, unspecified without bleeding (5) COPD exacerbation: Status: Acute Category: Medical Code(s): J44.1 - Chronic obstructive pulmonary disease with (acute) exacerbation (6) Class II obesity: Status: Acute Category: Medical Code(s): E66.9 - Obesity, unspecified (7) Tobacco use disorder: Status: Acute Category: Medical Code(s): F17.200 - Nicotine dependence, unspecified, uncomplicated Plan Ms. Dunbar is a 57-year-old female who presented to the ER with onset of chest pressure, shortness of breath, nausea and vomiting. Concern for unstable angina versus COPD exacerbation versus pneumonia versus intrathoracic vascular problem. CTA of the chest pending. Discussed case with ER physician, request admission for further monitoring. Medicine agreed to admit. Had episode overnight meeting criteria for sepsis and pneumonia. Continues to require inpatient management. Problems addressed as follows: Sepsis Pneumonia -CTA of the chest reviewed, right-sided pneumonia with consolidation and fluid in right fissure. -White cell count jumped to 24 today. -Fever overnight with rigors. -Continue levofloxacin 750 mg daily. -Repeat CBC, CMP, magnesium ordered for the morning. -Continue supplemental oxygen, goal sats greater 90%. Currently on 3 L -Tylenol 650 mg every 4 hours as needed for fever -Zofran for nausea every 8 hours IV -BUN 22, creatinine 1.4. Slight bump from yesterday. Electrolytes stable with potassium 3.6, magnesium 1.6. Will replace with 2 g IV x 1 -Given bump in creatinine, hold on further diuretics Unstable angina Shortness of breath Type II NSTEMI -Unclear etiology, chest pain with concerning symptoms of pressure, onset of vomiting, shortness of breath. -Cardiology consulted, troponin peaked at 0.05. Given patient's fevers and illness above, will hold on any intervention during admission. Needs close outpatient follow-up for further ischemic eval -Monitor on telemetry -Echocardiogram obtained, formal read still pending Tobacco use disorder: Nicotine patch as needed Resume home Paxil 10 mg daily Full code Cardiac diet Lovenox 40 mg subcu daily
[2023-09-27] MEDS: ASPIRIN EC 81MG TABLET 81 MG PO (08:47)
[2023-09-27 09:40] LABS: Troponin I 0.05 ng/ml (0.00-0.034)
--- NOTE | 2023-09-27 09:45 | PC.NURSE ---
pt is now on 2L of o2 ncAna Mcelroy stated to wean pt's o2 throughout today. pt currently satting at 95%. urinary catheter was also d/c per 's request. pt had no complaints after catheter was removed. purewick is now in place.
[2023-09-27 09:50] LABS: Lymphocytes % 5 % (10-50); Monocytes % 1 % (2-9); Neutrophils % 94 % (42-76); Total Cells Counted 100
[2023-09-27 09:51] LABS: Platelet Estimate Moderate Decrease; RBC Morphology KN
[2023-09-27] MEDS: PARoxetine 10MG TABLET 10 MG PO (11:45)
--- OUTSIDE RECORDS SUMMARY | 2023-09-27 11:46 | XMS_ITS | Clinical Summary ---
Author Name Unknown Address [address] [place] [address] Phone Organization [facility] Address [address] [place] [address] Phone Care Team Providers Care Set Key Driver Name Role Phone Hao ROBERSON, Brant Jaramillo [facility] [phone] [ ] Conditions or Problems Problem Name Problem Code Onset Date Status Entry Date Provider Comment Standard Description Annotate Diarrhea 72164721 (SNOMED CT) 01/31 Active 01/31 Brant Bui MD Diarrhea Hematuria, microscopic [id number] (SNOMED CT) 01/27 Active 01/27 Sofia Nilton [...] RECONSTITUTED 1gm IV Q24hrs/ INPAT ERTAPENEM SODIUM [id number] Niki Barreto RN INVANZ 1 GM INTRAVENOUS SOLUTION RECONSTITUTED 1gm IV Q24hrs/ INPAT ERTAPENEM SODIUM [id number] Lacie Rebollar FLORASTOR 250 MG CAPS by mouth twice daily SACCHAROMYCES BOULARDII [id number] Teodoro P PERCOCET 5-325 MG TABS 1-2 tabs by mouth as needed every six hours OXYCODONE-ACETAM INOPHEN [id number] Teodoro P ALEVE 220 MG CAPS by mouth twice daily as needed NAPROXEN SODIUM [id number] Teodoro P BUPROPION HCL ER (SMOKING DET) 150 MG [id number] by mouth twice daily BUPROPION HCL (SMOKING DETER) [id number] Teodoro P Medications Administered No information available. [...] antibiotics 2015 CPT-cwl Weekly Labs (Continue) 01/31 CPT-44858 CMP [id number] CBC with Differential 2015 CPT- stat weekly Stat Weekly Labs 17957 Hepatitis C Atb: (ICD 10 Code: Z11.59) [...]
--- NOTE | 2023-09-27 16:34 | PC.NURSE ---
pt has overall had a good shift. pt has remained slightly hypotensive throughout shift. pt has been satting 92-95% throughput shift. pt started shift on 3L NC, but is now weaned to 1L NC. lung sounds have been slightly diminished today. pt ambulated to bathroom independently this afternoon around 3pm and tolerated the ambulation well. pt also voided for first time since having catheter d/c at that time. pt has had no c/o headache or sob throughout the shift. no new orders at this time. call light within reach.
[2023-09-27] MEDS: LEVOFLOXACIN/D5W 750 MG/150 ML 750 MG/150 ML PIGGYBACK 100 MG IV (17:07)
[2023-09-27] MEDS: ENOXAPARIN 40MG/0.4ML SYRINGE 40 MG SQ (18:17)
[2023-09-27] MEDS: OXYCODONE 5MG IMMEDIATE RELEASE TABLET 5 MG PO (20:37)
[2023-09-28] VITALS (11 sets, daily range): BP systolic 106–132; BP diastolic 69–82; PULSE 70–100; RESP 18–24; TEMP 36.6–37.3; O2SAT 90–94; BMI 29.3
[2023-09-28] MEDS: OXYCODONE 5MG IMMEDIATE RELEASE TABLET 10 MG PO ×2 (00:15→20:56)
[2023-09-28] MEDS: METHYLPREDNISOLONE SOD SUCC 40MG VIAL 40 MG IV (04:31)
[2023-09-28] MEDS: IPRATROPIUM/ALBUTEROL 3 ML NEB IH ×3 (05:52→18:39)
[2023-09-28] MEDS: BUDESONIDE 0.5MG/2ML NEB 0.5 MG IH ×2 (05:52→18:39)
[2023-09-28 05:54] LABS: Basophils # 0.1 K/mm3 (0-0.2); Basophils % 0.2 % (0.1-2.0); Eosinophils % 0.1 % (0.1-12.0); Hematocrit 41.2 % (37.0-47.0); Hemoglobin 13.7 g/dL (12.2-16.2); Lymphocytes # 1.1 K/mm3 (0.7-4.5); Lymphocytes % 3.8 % (10-50); Mean Corpuscular HGB Conc 33.3 g/dL (31.8-35.4); Mean Corpuscular Hemoglobin 31.4 pg (27.0-31.2); Mean Corpuscular Volume 94.5 fl (81-99); Mean Platelet Volume 10.6 fl (7.4-10.4); Monocytes # 0.4 K/mm3 (0.1-1.0); Monocytes % 1.3 % (1.7-9.3); Neutrophils # 27.9 K/mm3 (1.8-7.8); Neutrophils % 94.7 % (37.0-80.0); Platelet Count 111 K/mm3 (142-424); Red Blood Count 4.36 M/mm3 (4.20-5.40); Red Cell Distribution Width 14.8 % (11.5-17.5); White Blood Count 29.4 K/mm3 (4.8-10.8)
[2023-09-28 05:57] LABS: MANUAL DIFFERENTIAL MANUAL DIFFERENTIAL (MANUAL DIFF)
[2023-09-28 06:05] LABS: Alanine Aminotransferase 51 U/L (12-78); Alkaline Phosphatase 103 U/L (38-126); Aspartate Amino Transferase 43 U/L (14-36); Bilirubin,Total 0.5 mg/dl (0.2-1.3); Blood Urea Nitrogen 29 mg/dl (7-17); Calcium 8.4 mg/dl (8.4-10.2); Carbon Dioxide 27 mmol/L (22.0-30.0); Chloride 98 mmol/L (98-107); Creatinine Clearance Estimated 68 mL/min (50-200); Estimated Glomerular Filt Rate 42 ml/min (>60); GFR (African American) 51 ML/MIN (>60); Glucose 208 mg/dl (74-100)
[2023-09-28 06:06] LABS: Albumin Level 3.2 g/dl (3.5-5.0); Albumin/Globulin Ratio 1.1 (1.1-1.8); Globulin 2.9 g/dL (1.3-3.2); Sodium 136 mmol/L (136-145); Total Protein,Serum 6.1 g/dl (6.3-8.2)
[2023-09-28 06:15] LABS: Anion Gap 14.7 mEq/L (5-15); Potassium 3.7 mmoL/L (3.5-5.1)
--- NOTE | 2023-09-28 08:26 | P.PN_ITS ---
Subjective *Date: 09/28/23 *Time: 19:18 Medical Exam Vital signs and Labs for Last 24 Hours: Vital Signs Temp Pulse Pulse Pulse Resp BP Pulse Ox 09/28/23 07:00 09/28/23 05:53 85 09/28/23 05:53 70 09/28/23 05:53 90 L 09/28/23 05:00 09/28/23 04:00 80 09/28/23 04:00 98.3 F 85 20 107/77 L 09/28/23 03:00 09/28/23 01:00 09/28/23 00:55 90 09/28/23 00:55 92 H 09/28/23 00:00 91 L 09/28/23 00:00 99.1 F 91 H 24 106/69 L 91 L 09/28/23 00:00 96 H 09/27/23 23:00 09/27/23 21:11 91 L 09/27/23 21:00 09/27/23 20:30 91 L 09/27/23 20:00 99.4 F 104 H 20 113/50 L 91 L 09/27/23 20:00 114 H 09/27/23 19:12 108 H 09/27/23 19:12 111 H 09/27/23 19:00 09/27/23 16:51 09/27/23 16:00 80 09/27/23 15:57 98.7 F 83 18 110/69 96 09/27/23 15:00 09/27/23 12:56 09/27/23 12:00 90 09/27/23 12:00 98.0 F 94 H 18 101/64 L 94 L 09/27/23 12:00 90 20 101/64 L 93 L 09/27/23 11:00 09/27/23 10:45 96 09/27/23 10:45 89 09/27/23 10:45 88 09/27/23 08:55 O2 Del Method O2 Flow Rate 09/28/23 07:00 Nasal Cannula 3 09/28/23 05:53 09/28/23 05:53 09/28/23 05:53 Nasal Cannula 3 09/28/23 05:00 Nasal Cannula 3 09/28/23 04:00 09/28/23 04:00 Nasal Cannula 3 09/28/23 03:00 Nasal Cannula 3 09/28/23 01:00 Nasal Cannula 3 09/28/23 00:55 09/28/23 00:55 09/28/23 00:00 Nasal Cannula 3 09/28/23 00:00 Nasal Cannula 3 09/28/23 00:00 09/27/23 23:00 Nasal Cannula 3 09/27/23 21:11 Nasal Cannula 3 09/27/23 21:00 Nasal Cannula 3 09/27/23 20:30 Nasal Cannula 3 09/27/23 20:00 Nasal Cannula 3 09/27/23 20:00 09/27/23 19:12 09/27/23 19:12 09/27/23 19:00 Nasal Cannula 3 09/27/23 16:51 Nasal Cannula 1 09/27/23 16:00 09/27/23 15:57 Nasal Cannula 1 09/27/23 15:00 Nasal Cannula 1 09/27/23 12:56 Nasal Cannula 2 09/27/23 12:00 09/27/23 12:00 Nasal Cannula 09/27/23 12:00 Nasal Cannula 2 09/27/23 11:00 Nasal Cannula 2 09/27/23 10:45 2 09/27/23 10:45 09/27/23 10:45 09/27/23 08:55 Nasal Cannula 3 Intake and Output 09/27/23 09/28/23 09/28/23 23:59 07:59 15:59 Intake Total 420 / 1290 Output Total 0 / 1250 0 / 0 Balance 420 / 40 0 / 0 Intake: Intake, Oral Amount 420 / 1290 Output: Output, Urine Amount 0 / 1250 0 / 0 Other: Number of Unmeasured Voids 1 1 Number of Bowel Movements 1 1 Weight 92.986 kg Patient Weight 09/28/23 23:59 Weight 92.986 kg Laboratory Results - last 24 hr 09/27/23 05:39: Total Counted 100, Neutrophils % (Manual) 94 H, Lymphocytes % (Manual) 5 L, Monocytes % (Manual) 1 L, Platelet Estimate Moderate decrease, RBC Morphology Kn, Troponin I 0.05 H 09/28/23 05:15: WBC 29.4 H*, RBC 4.36, Hgb 13.7, Hct 41.2, MCV 94.5, MCH 31.4 H, MCHC 33.3, RDW 14.8, Plt Count 111 L, MPV 10.6 H, Neut % (Auto) 94.7 H, Lymph % (Auto) 3.8 L, [place] % (Auto) 1.3 L, Eos % (Auto) 0.1, Baso % (Auto) 0.2, Neut # (Auto) 27.9 H, Lymph # (Auto) 1.1, [place] # (Auto) 0.4, Eos # (Auto) 0.0, Baso # (Auto) 0.1, Sodium 136, Potassium 3.7, Chloride 98, Carbon Dioxide 27, Anion Gap 14.7, BUN 29 H D, Creatinine 1.30 H, Estimated Creat Clear 68, Estimated GFR 42 L, Est GFR ( Amer) 51 L, Glucose 208 H D, Calcium 8.4, Magnesium 2.0 D, Total Bilirubin 0.5, AST 43 H, ALT 51, Alkaline Phosphatase 103, Total Protein 6.1 L, Albumin 3.2 L, Globulin 2.9, Albumin/Globulin Ratio 1.1 I & O for Labs for Last 24 Hours: Intake & Output 09/25/23 09/26/23 09/27/23 09/28/23 23:59 23:59 23:59 23:59 Intake Total 240 / 240 1290 / 1290 Output Total 0 / 0 1250 / 1250 0 / 0 Balance 240 / 240 40 / 40 0 / 0 Weight 95.481 kg 95.3 kg 92.986 kg Constitutional: Present no acute distress and cooperative Head: Present atraumatic and normocephalic ENT: Present normal exam Respiratory: Present normal respiratory effort; Absent rhonchi, wheezes or crackles Cardiac: Present Reg Rate and Rhythm GI: Present soft and normal bowel sounds; Absent distention or tenderness Extremities: Present normal inspection and full ROM Skin: Present intact; Absent erythema Neuro: Present Grossly Intact, alert, awake, oriented x 3 and moves all extremities Assessment and Plan *Assessment and plan (1) Sepsis: Status: Acute Category: Medical Code(s): A41.9 - Sepsis, unspecified organism (2) E coli bacteremia: Status: Acute Category: Medical Code(s): R78.81 - Bacteremia; B96.20 - Unspecified Escherichia coli [E. coli] as the cause of diseases classified elsewhere (3) Pneumonia: Status: Acute Qualifiers: Laterality: right Lung location: lower lobe of lung Pneumonia type: due to unspecified organism Qualified Code(s): J18.9 - Pneumonia, unspecified organism Category: Medical Code(s): J18.9 - Pneumonia, unspecified organism (4) Chest pain: Status: Acute Qualifiers: Chest pain type: unspecified Qualified Code(s): R07.9 - Chest pain, unspecified Category: Medical Code(s): R07.9 - Chest pain, unspecified (5) Esophagitis: Status: Acute Category: Medical Code(s): K20.90 - Esophagitis, unspecified without bleeding (6) COPD exacerbation: Status: Acute Category: Medical Code(s): J44.1 - Chronic obstructive pulmonary disease with (acute) exacerbation (7) Class II obesity: Status: Acute Category: Medical Code(s): E66.9 - Obesity, unspecified (8) Tobacco use disorder: Status: Acute Category: Medical Code(s): F17.200 - Nicotine dependence, unspecified, uncomplicated Plan Ms. Dunbar is a 57-year-old female who presented to the ER with onset of chest pressure, shortness of breath, nausea and vomiting. Concern for unstable angina versus COPD exacerbation versus pneumonia versus intrathoracic vascular problem. CTA of the chest pending. Discussed case with ER physician, request admission for further monitoring. Medicine agreed to admit. Patient had repeat episode overnight of chilling and tachycardia. On morning evaluation of labs, blood cultures returned positive for E. coli. Broadened antibiotics today. Repeat cultures obtained. Continues to require inpatient management for sepsis with E. coli bacteremia. Problems addressed as follows: Sepsis Pneumonia E. coli bacteremia -CTA of the chest reviewed, right-sided pneumonia with consolidation and fluid in right fissure. -White cell count remains elevated at 29 today. -Chills overnight but no zana fever. -Broaden antibiotics to include meropenem 1 g twice daily, continue levofloxacin 750 mg daily, added vancomycin for broad-spectrum coverage. Will de-escalate antibiotics pending culture sensitivities. -Repeat blood cultures obtained - Repeat CBC, CMP, magnesium ordered for the morning. -Continue supplemental oxygen, goal sats greater 90%. Currently on 2l -Tylenol 650 mg every 4 hours as needed for fever -Zofran for nausea every 8 hours IV -BUN 29, creatinine 1.3. Inflammatory markers elevated. Unstable angina Shortness of breath Type II NSTEMI -Unclear etiology, chest pain with concerning symptoms of pressure, onset of vomiting, shortness of breath. -Cardiology consulted, troponin peaked at 0.05. Given patient's fevers and illness above, will hold on any intervention during admission. Needs close outpatient follow-up for further ischemic eval -Monitor on telemetry -Echocardiogram obtained, formal read still pending Tobacco use disorder: Nicotine patch as needed Resume home Paxil 10 mg daily Full code Cardiac diet Lovenox 40 mg subcu daily
[2023-09-28 08:27] LABS: Lymphocytes % 7 % (10-50); Monocytes % 1 % (2-9); Neutrophils % 80 % (42-76); Platelet Estimate Slight Decrease; RBC Morphology Normal; Total Cells Counted 100; Toxic Granulation 1+
--- NOTE | 2023-09-28 08:28 | P.PN_ITS ---
Subjective Subjective Date: 09/28/23 Time: 08:28 Principal diagnosis: Pneumonia, chest pain Interval history: 57-year-old white female in bed in no acute distress. States she is feeling better and is ready to go home. Echocardiogram showed EF of 60% with no wall motion abnormalities. Exam Data for Last 24 hours Vital signs and Labs for Last 24 Hours: Temp Pulse Resp BP Pulse Ox O2 Del Method O2 Flow Rate 98.3 F 85 20 107/77 L 90 L Nasal Cannula 3 09/28/23 04:00 09/28/23 05:53 09/28/23 04:00 09/28/23 04:00 09/28/23 05:53 09/28/23 07:00 09/28/23 07:00 Laboratory Results - last 24 hr 09/27/23 05:39: Total Counted 100, Neutrophils % (Manual) 94 H, Lymphocytes % (Manual) 5 L, Monocytes % (Manual) 1 L, Platelet Estimate Moderate decrease, RBC Morphology Kn, Troponin I 0.05 H 09/28/23 05:15: WBC 29.4 H*, RBC 4.36, Hgb 13.7, Hct 41.2, MCV 94.5, MCH 31.4 H, MCHC 33.3, RDW 14.8, Plt Count 111 L, MPV 10.6 H, Neut % (Auto) 94.7 H, Lymph % (Auto) 3.8 L, [place] % (Auto) 1.3 L, Eos % (Auto) 0.1, Baso % (Auto) 0.2, Neut # (Auto) 27.9 H, Lymph # (Auto) 1.1, [place] # (Auto) 0.4, Eos # (Auto) 0.0, Baso # (Auto) 0.1, Total Counted 100, Neutrophils % (Manual) 80 H, Band Neutrophils % 12.0 H, Lymphocytes % (Manual) 7 L, Monocytes % (Manual) 1 L, Toxic Granulation 1+, Platelet Estimate Slight decrease, RBC Morphology Normal, Sodium 136, Potassium 3.7, Chloride 98, Carbon Dioxide 27, Anion Gap 14.7, BUN 29 H D, Creatinine 1.30 H, Estimated Creat Clear 68, Estimated GFR 42 L, Est GFR ( Amer) 51 L, Glucose 208 H D, Calcium 8.4, Magnesium 2.0 D, Total Bilirubin 0.5, AST 43 H, ALT 51, Alkaline Phosphatase 103, Total Protein 6.1 L, Albumin 3.2 L, Globulin 2.9, Albumin/Globulin Ratio 1.1 I & O for Last 24 hours: Intake & Output 09/25/23 09/26/23 09/27/23 09/28/23 11:59 11:59 11:59 11:59 Intake Total 840 / 840 690 / 690 Output Total 1250 / 1250 0 / 0 Balance -410 / -410 690 / 690 Weight 210 lb 1.608 oz 205 lb Constitutional Constitutional: no acute distress *Routine Respiratory Exam Respiratory: Present CTA bilaterally *Routine Cardiovascular Exam Cardiovascular: Present RRR; Absent murmur Progress Note: A&P Assessment and plan (1) Sepsis: Status: Acute (2) Pneumonia: Status: Acute (3) Chest pain: Status: Acute (4) Esophagitis: Status: Acute (5) COPD exacerbation: Status: Acute (6) Class II obesity: Status: Acute (7) Tobacco use disorder: Status: Acute Assessment and Plan Assessment and Plan for All Diagnoses:: 1. Pneumonia with acute hypoxemic respiratory failure -On levofloxacin with addition of vancomycin and meropenem for E. coli noted on blood cultures and increase in white count overnight -On oxygen with pulmonary meds including DuoNeb, Pulmicort and steroids 2. Chest pain -Mild elevation of third and fourth troponin likely due to infection/respiratory issues -Continue aspirin 81 mg daily -Echo EF 60% without wall motion abnormalities -CTA of chest reviewed with no evidence of significant CAD in the proximal portions of the coronary arteries -Unable to add antianginal medication due to low blood pressure 3. Vomiting with esophagitis noted on CTA of the chest -Continue Protonix 4. Tobacco -Cessation recommended 5. Recently diagnosed diabetes -Defer to hospitalist Clinically stable from a cardiac standpoint. Patient continues to require inpatient treatment due to increasing white count and positive blood cultures. Home medication recommendations from cardiac standpoint: Aspirin 81 mg daily Protonix 40 mg daily Holding antianginal medications due to borderline low blood pressure. Follow-up in our office in 1-2 wks
--- NOTE | 2023-09-28 08:36 | P.CONPHA_ITS ---
Pharmacy Consult Date: 09/28/23 Time: 08:36 Referring provider: DR. ALFONSO Reason for Consult:: VANCOMYCIN DOSING Allergies Allergy/AdvReac Type Severity Reaction Status Date / Time Penicillins [PENICILLINS] Allergy Intermediate SWELLING Verified 11/17/20 11:28 codeine [CODEINE] Allergy Mild VOMITING, Verified 11/17/20 11:28 WHIVES morphine [MORPHINE] Allergy Mild ITCHING Verified 11/17/20 11:28 AND VOMITING Sulfa (Sulfonamide Allergy Mild WHEEZES Verified 11/17/20 11:28 Antibiotics) [SULFA (SULFONAMIDE ANTIBIOTICS)] Home Medications Medication Instructions Recorded Confirmed Type furosemide 40 mg tablet 40 mg PO DAILY 09/26/23 09/26/23 History paroxetine HCl 10 mg tablet 10 mg PO DAILY 09/26/23 09/26/23 History ibuprofen 800 mg tablet 800 mg PO Q8HP PRN Mild Pain 09/27/23 09/27/23 History (Scale Score 1-4) ipratropium bromide 21 mcg (0.03 2 spray intranasal BID 09/27/23 09/27/23 History %) nasal spray New Prescriptions to Start Prescriptions: Height: 1.78 m Weight: 92.986 kg Laboratory Results:: Laboratory Results - last 24 hr 09/27/23 05:39: Total Counted 100, Neutrophils % (Manual) 94 H, Lymphocytes % (Manual) 5 L, Monocytes % (Manual) 1 L, Platelet Estimate Moderate decrease, RBC Morphology Kn, Troponin I 0.05 H 09/28/23 05:15: WBC 29.4 H*, RBC 4.36, Hgb 13.7, Hct 41.2, MCV 94.5, MCH 31.4 H, MCHC 33.3, RDW 14.8, Plt Count 111 L, MPV 10.6 H, Neut % (Auto) 94.7 H, Lymph % (Auto) 3.8 L, Mcdonald % (Auto) 1.3 L, Eos % (Auto) 0.1, Baso % (Auto) 0.2, Neut # (Auto) 27.9 H, Lymph # (Auto) 1.1, Mcdonald # (Auto) 0.4, Eos # (Auto) 0.0, Baso # (Auto) 0.1, Total Counted 100, Neutrophils % (Manual) 80 H, Band Neutrophils % 12.0 H, Lymphocytes % (Manual) 7 L, Monocytes % (Manual) 1 L, Toxic Granulation 1+, Platelet Estimate Slight decrease, RBC Morphology Normal, Sodium 136, P otassium 3.7, Chloride 98, Carbon Dioxide 27, Anion Gap 14.7, BUN 29 H D, Creatinine 1.30 H, Estimated Creat Clear 68, Estimated GFR 42 L, Est GFR ( Amer) 51 L, Glucose 208 H D, Calcium 8.4, Magnesium 2.0 D, Total Bilirubin 0.5, AST 43 H, ALT 51, Alkaline Phosphatase 103, Total Protein 6.1 L, Albumin 3.2 L, Globulin 2.9, Albumin/Globulin Ratio 1.1 Medical History: Medical History (Updated 09/27/23 @ 17:38 by Daniele Alfonso MD) Class II obesity Assessment and Plan Assessment and plan all Dx Assessment and Plan for all problems:: Pharmacokinetic dosing service Objective: Patient: Floor: Age: 57 yo Serum creatinine: 1.3 mg/dL Height: 70.1 Inches Weight (kg): 93 Assessment: IBW (kg): 68.73 Dosing wt(kg): 93 Estimated Creatinine clearance (ml/min): 50.6 CRCL method: Cockcroft and Gault using ibw(default). Drug selected: Vancomycin Loading dose (mg): 0 Vd (liters): 74.4 (factor used: 0.8 L/kg) Karan (hr-1): 0.046 Half life (hrs): 15.07 Recommended dose: 1750 mg Interval: 24 hrs Infusion time (hrs): 2.0 Predicted peak (mcg/mL): 33.6 Predicted trough (mcg/mL): 12.21 Total body weight is being used for vancomycin dosing. Recommendations: Give Vancomycin 1750 mg q 24 hrs with an expected Cpeak of 33.6 mcg/ml and an expected Ctrough of 12.21 mcg/ml ----Vanco only - ignore for aminoglycosides----- CLvanco= 3.42 L/hr AUC 0-24 /DO Data: DO 0.5 mcg/mL: AUC/DO: 1023.4 DO 1.0 mcg/mL: AUC/DO: 511.7 --------- DO 1.5 mcg/mL: AUC/DO: 341.1 DO 2.0 mcg/mL: AUC/DO: 255.8
[2023-09-28 08:37] LABS: C-Reactive Protein 255.6 mg/L (0-4)
[2023-09-28 08:53] LABS: Erythrocyte Sedimentation Rate 56 mm/hr (0-30)
[2023-09-28] MEDS: PARoxetine 10MG TABLET 10 MG PO (09:34)
[2023-09-28] MEDS: MEROPENEM 1 GM in 0.9 % SODIUM CHLORIDE 100 ML IV ×2 (09:34→16:41)
[2023-09-28] MEDS: ASPIRIN EC 81MG TABLET 81 MG PO (09:34)
[2023-09-28] MEDS: VANCOMYCIN/WATER FOR INJ (PEG) 1.75 GM/350 ML PIGGYBACK IV (11:33)
[2023-09-28] MEDS: LEVOFLOXACIN/D5W 750 MG/150 ML 750 MG/150 ML PIGGYBACK 100 MG IV (18:05)
--- NOTE | 2023-09-28 18:41 | PC.NURSE ---
RESP CARE NOTE: ROOM AIR SAT 84% Pt placed back on 2LNC and sats were 90%
[2023-09-28] MEDS: PANTOPRAZOLE 40MG VIAL 40 MG IV (20:54)
[2023-09-29] VITALS (13 sets, daily range): BP systolic 133–148; BP diastolic 73–86; PULSE 76–109; RESP 20–28; TEMP 36.9–37.7; O2SAT 80–94; BMI 29.3
[2023-09-29] MEDS: IPRATROPIUM/ALBUTEROL 3 ML NEB IH ×3 (00:14→11:30)
[2023-09-29] MEDS: MEROPENEM 1 GM in 0.9 % SODIUM CHLORIDE 100 ML IV ×2 (00:22→08:19)
--- NOTE | 2023-09-29 01:57 | PC.NURSE ---
pt chilling and appears more tachypneic, audible exp wheezing noted. sats 85% on 3l/nc. called dr hancock and notified of findings. no new orders received. a second call given to provider to notify o2 currently on 6l/nc to maintain sats 90% which is an increase since pt was currently on 3l/nc and was maintaining sats 91%. no new orders received. questioned about pt wears bi-pap @ [facility]. pt has refused bi-pap for tonight and last night, provider made aware. despite concerns of increased tachypnea, new audible wheezing and increased o2 demands no new orders received
[2023-09-29] MEDS: OXYCODONE 5MG IMMEDIATE RELEASE TABLET 10 MG PO (05:42)
[2023-09-29 06:08] LABS: Basophils % 0.2 % (0.1-2.0); Eosinophils # 0.1 K/mm3 (0.0-0.4); Eosinophils % 0.4 % (0.1-12.0); Hematocrit 46.1 % (37.0-47.0); Hemoglobin 15.4 g/dL (12.2-16.2); Lymphocytes # 0.8 K/mm3 (0.7-4.5); Lymphocytes % 4.8 % (10-50); Mean Corpuscular HGB Conc 33.4 g/dL (31.8-35.4); Mean Corpuscular Hemoglobin 31.5 pg (27.0-31.2); Mean Corpuscular Volume 94.3 fl (81-99); Monocytes # 0.3 K/mm3 (0.1-1.0); Neutrophils % 92.5 % (37.0-80.0); Platelet Count 137 K/mm3 (142-424); Red Blood Count 4.89 M/mm3 (4.20-5.40); Red Cell Distribution Width 14.9 % (11.5-17.5); White Blood Count 16.2 K/mm3 (4.8-10.8)
[2023-09-29 06:10] LABS: MANUAL DIFFERENTIAL MANUAL DIFFERENTIAL (MANUAL DIFF)
[2023-09-29 06:15] LABS: Alanine Aminotransferase 45 U/L (12-78); Albumin Level 3.3 g/dl (3.5-5.0); Alkaline Phosphatase 123 U/L (38-126); Aspartate Amino Transferase 53 U/L (14-36); Bilirubin,Total 0.7 mg/dl (0.2-1.3); Blood Urea Nitrogen 32 mg/dl (7-17); Calcium 8.6 mg/dl (8.4-10.2); Carbon Dioxide 33 mmol/L (22.0-30.0); Chloride 97 mmol/L (98-107); Creatinine Clearance Estimated 81 mL/min (50-200); Estimated Glomerular Filt Rate 51 ml/min (>60); GFR (African American) 62 ML/MIN (>60); Globulin 3.4 g/dL (1.3-3.2); Glucose 131 mg/dl (74-100); Sodium 137 mmol/L (136-145); Total Protein,Serum 6.7 g/dl (6.3-8.2)
[2023-09-29 06:19] LABS: Magnesium 2.2 mg/dl (1.6-2.3)
[2023-09-29] MEDS: BUDESONIDE 0.5MG/2ML NEB 0.5 MG IH (06:35)
--- NOTE | 2023-09-29 07:00 | XR_ITS ---
FINAL REPORT TECHNIQUE: Single view chest CLINICAL HISTORY: increased dyspnea COMPARISON: 09/26/2023 FINDINGS: A single view of the chest was obtained. The heart and mediastinum are within normal limits. Lungs are underinflated with chronic changes bilaterally. There is possible mild right base airspace opacity concerning for small focus of pneumonia. There is no pneumothorax. Osseous structures are unremarkable. IMPRESSION: Small focus of pneumonia superimposed on chronic interstitial change. Reviewed, Interpreted and Dictated by Victor Hugo Hudson MD Transcribed by Juliana Mcfarland Authenticated and [facility]
--- NOTE | 2023-09-29 08:07 | P.PN_ITS ---
Subjective *Date: 09/29/23 *Time: 08:07 Medical Exam Vital signs and Labs for Last 24 Hours: Vital Signs Temp Pulse Pulse Pulse Resp BP Pulse Ox 09/29/23 07:29 80 L 09/29/23 07:26 98.7 F 109 H 28 H 133/78 90 L 09/29/23 07:00 09/29/23 06:54 24 94 L 09/29/23 06:36 85 09/29/23 06:36 87 09/29/23 06:36 92 L 09/29/23 06:00 99.8 F H 95 H 24 148/86 H 92 L 09/29/23 05:00 09/29/23 03:00 09/29/23 02:09 24 92 L 09/29/23 01:45 28 H 85 L 09/29/23 01:00 09/29/23 00:15 80 09/28/23 23:00 09/28/23 21:00 09/28/23 20:00 98.4 F 88 18 132/72 91 L 09/28/23 20:00 09/28/23 18:41 94 L 09/28/23 18:40 80 09/28/23 18:25 09/28/23 17:00 09/28/23 16:00 09/28/23 16:00 98.9 F 72 18 120/74 92 L 09/28/23 15:00 09/28/23 13:00 09/28/23 12:00 98.3 F 92 H 20 121/75 91 L 09/28/23 11:20 78 09/28/23 11:20 92 H 09/28/23 11:20 92 L 09/28/23 11:00 09/28/23 09:00 O2 Del Method O2 Flow Rate 09/29/23 07:29 Room Air 09/29/23 07:26 Nasal Cannula 6 09/29/23 07:00 Nasal Cannula 6 09/29/23 06:54 Nasal Cannula 6 09/29/23 06:36 09/29/23 06:36 09/29/23 06:36 Nasal Cannula 6 09/29/23 06:00 6 09/29/23 05:00 Nasal Cannula 6 09/29/23 03:00 Nasal Cannula 6 09/29/23 02:09 Nasal Cannula 6 09/29/23 01:45 Nasal Cannula 3 09/29/23 01:00 Nasal Cannula 3 09/29/23 00:15 09/28/23 23:00 Nasal Cannula 3 09/28/23 21:00 Nasal Cannula 3 09/28/23 20:00 3 09/28/23 20:00 Nasal Cannula 2 09/28/23 18:41 Nasal Cannula 2 09/28/23 18:40 09/28/23 18:25 Nasal Cannula 3 09/28/23 17:00 Nasal Cannula 3 09/28/23 16:00 Nasal Cannula 3 09/28/23 16:00 Nasal Cannula 3 09/28/23 15:00 Nasal Cannula 3 09/28/23 13:00 Nasal Cannula 3 09/28/23 12:00 Nasal Cannula 3 09/28/23 11:20 09/28/23 11:20 09/28/23 11:20 Nasal Cannula 3 09/28/23 11:00 Nasal Cannula 3 09/28/23 09:00 Nasal Cannula 3 Intake and Output 09/28/23 09/29/23 09/29/23 23:59 07:59 15:59 Intake Total 960 / 1500 480 / 480 Output Total 201 / 201 0 / 0 Balance 759 / 1299 480 / 480 Intake: Intake, Oral Amount 360 / 900 480 / 480 Intake, Total IV Amount 600 / 600 Levofloxacin/D5w 750 mg/150 ml 150 / 150 750 mg In 150 ml @ 100 mls/hr IV Q24H [facility] Rx#:[id number] Meropenem 1 gm In 0.9 % Sodium 100 / 100 Chloride 100 ml @ 100 mls/hr IV Q8H [facility] Rx#:[id number] Vancomycin/Water For Inj (Peg) 350 / 350 1.75 gm In 350 ml @ 175 mls/hr IV 0800 [facility] Rx#:[id number] Output: Output, Urine Amount 201 / 201 0 / 0 Other: Number of Voids 0 Number of Unmeasured Voids 1 1 Number of Bowel Movements 1 1 Weight 92.98 kg Patient Weight 09/29/23 23:59 Weight 92.98 kg Laboratory Results - last 24 hr 09/28/23 05:15: Total Counted 100, Neutrophils % (Manual) 80 H, Band Neutrophils % 12.0 H, Lymphocytes % (Manual) 7 L, Monocytes % (Manual) 1 L, Toxic Granulation 1+, Platelet Estimate Slight decrease, RBC Morphology Normal, ESR 56 H, C-Reactive Protein 255.6 H 09/29/23 05:33: WBC 16.2 H D, RBC 4.89, Hgb 15.4, Hct 46.1, MCV 94.3, MCH 31.5 H , MCHC 33.4, RDW 14.9, Plt Count 137 L, MPV 10.0, Neut % (Auto) 92.5 H, Lymph % (Auto) 4.8 L, Centre % (Auto) 2.0, Eos % (Auto) 0.4, Baso % (Auto) 0.2, Neut # (Auto) 15.0 H, Lymph # (Auto) 0.8, Centre # (Auto) 0.3, Eos # (Auto) 0.1, Baso # (Auto) 0.0, Sodium 137, Potassium 4.0, Chloride 97 L, Carbon Dioxide 33 H, Anion Gap 11.0, BUN 32 H, Creatinine 1.10 H, Estimated Creat Clear 81, Estimated GFR 51 L, Est GFR ( Amer) 62 D, Glucose 131 H, Calcium 8.6, Magnesium 2.2, Total Bilirubin 0.7, AST 53 H, ALT 45, Alkaline Phosphatase 123, Total Protein 6.7, Albumin 3.3 L, Globulin 3.4 H, Albumin/Globulin Ratio 1.0 L I & O for Labs for Last 24 Hours: Intake & Output 09/26/23 09/27/23 09/28/23 09/29/23 23:59 23:59 23:59 23:59 Intake Total 240 / 240 1290 / 1290 1500 / 1500 480 / 480 Output Total 0 / 0 1250 / 1250 201 / 201 0 / 0 Balance 240 / 240 40 / 40 1299 / 1299 480 / 480 Weight 95.481 kg 95.3 kg 92.986 kg 92.98 kg Microbiology Reports for the Last 24 Hours: Microbiology 09/26/23 15:05 Blood Blood Culture - Preliminary 09/26/23 14:50 Blood Blood Culture - Preliminary The patient's infection will respond to the chosen ABx?: Yes Is the patient receiving the right drug, dose, and route?: Yes Could a more targeted ABx be ordered?: No (WBC FROM 29.4 TO 16.1, GRAM - RODS IN BLD CX X2.)
[2023-09-29] MEDS: ASPIRIN EC 81MG TABLET 81 MG PO (08:18)
[2023-09-29] MEDS: PARoxetine 10MG TABLET 10 MG PO (08:18)
[2023-09-29 08:53] LABS: Lymphocytes % 5 % (10-50); Neutrophils % 83 % (42-76); Total Cells Counted 100
[2023-09-29 08:55] LABS: RBC Morphology Normal
[2023-09-29 08:58] LABS: Platelet Estimate Slight Decrease
[2023-09-29 09:06] LABS: Monocytes % 1 % (2-9)
[2023-09-29] MEDS: ENOXAPARIN 40MG/0.4ML SYRINGE 40 MG SQ (09:17)
[2023-09-29] MEDS: VANCOMYCIN/WATER FOR INJ (PEG) 1.75 GM/350 ML PIGGYBACK IV (09:17)
--- NOTE | 2023-09-29 11:47 | P.DS_ITS ---
General Admission date:: 09/26/23 Discharge date: 09/29/23 HPI HPI HPI: Ms. Dunbar is a 57-year-old female with history of tobacco use, [id number] history, neuropathy, and class 2 obesity. She presented to the ER because of onset of chest pressure, shortness of breath, vomiting and headache. States that for the past 3 to 4 days she has been having a headache that comes up the back of her shoulders over the back of her head that is severe at times. Will feel hot and then cold. Today she was getting ready to go mow when she had onset of chest pressure, like a brick on her chest across the front of her chest. Shortly thereafter she developed shortness of breath and nausea and vomiting. Denies ever having symptoms like this before. Her mother called EMS for evaluation and to bring her to the ER. On arrival, patient found to be febrile with fever of 101.5. O2 sats in the. Patient tachycardic. Workup with normal white count but neutrophil predominance of 90%. Blood gas normal. Lactic acid elevated. Initial troponin obtained less than 0.01. EKG obtained showing no acute ischemic changes. Chest x-ray obtained showing linear density at fissure in right lung field. No significant airspace disease or consolidation. Medicine salted for admission. On evaluation, patient is on 2 L oxygen initially. Fever improved. Feeling little bit better after getting some IV fluids and antibiotics. Chest pressure still present but better. No longer having any nausea or vomiting. Does complain of some epigastric pain at this time. Patient hemodynamically stable. Admitted for observation and cardiology consult given chest pressure. Hospital Course Hospital Course Hospital Course: Ms. Dunbar is a 57-year-old female who presented to the ER with onset of chest pressure, shortness of breath, nausea and vomiting. Concern for unstable angina versus COPD exacerbation versus pneumonia versus intrathoracic vascular problem. CTA of the chest pending. Discussed case with ER physician, request admission for further monitoring. Medicine agreed to admit. Patient had repeat episode overnight of chilling and tachycardia. On morning evaluation of labs, blood cultures returned positive for E. coli. Broadened antibiotics. Showing improvement. Repeat cultures negative. Through shared decision making, patient stable to discharge home. Will continue to follow cultures after discharge. Continues to require oxygen. Has family with her at time of discharge. Problems addressed as follows: Sepsis Pneumonia E. coli bacteremia -CTA of the chest reviewed, right-sided pneumonia with consolidation and fluid in right fissure. White cell count elevated and peaked at 29. Blood cultures returned positive for E. coli. Initiated on Levaquin initially, antibiotics were broadened to added meropenem given bacteremia and persistent leukocytosis over first 48 hours. White cell count showed improvement to 16.2. Patient showing improvement. Has stable oxygen requirement. Feels the need to get home to help care for her mother. Shared decision about risks and benefits of going home at this time. Will continue Levaquin for total of 10 days 750 mg daily. Treated with 1 dose of ertapenem 1 g IM prior to discharge for an additional 24 hours of dual coverage while sensitivities from blood cultures pending. Blood cultures returned following morning sensitive to Levaquin. Will complete course for bacteremia with Levaquin. Tolerating p.o. intake. Ambulating independently. Stable to discharge at this time. No fever in over 24 hours. Kidney function normal. Unstable angina Shortness of breath Type II NSTEMI -Unclear etiology, chest pain with concerning symptoms of pressure, onset of vomiting, shortness of breath. Cardiology consulted, troponin peaked at 0.05. Given patient's fevers and illness above, will hold on any intervention during admission. Needs close outpatient follow-up for further ischemic eval. no events on telemetry. Echocardiogram obtained showing normal biventricular systolic function with no significant valvular stenosis or regurgitation. Tobacco use disorder: Nicotine patch as needed during hospitalization. Strongly counseled on smoking cessation Resume home Paxil 10 mg daily Patient found to have room air saturation at rest of 85%. Will need continuous supplemental oxygen via nasal cannula at 3 L. Total time spent on discharge 38 minutes in counseling, documentation, chart review, and direct care with patient. Exam Data for Last 24 hours Vital signs and Labs for Last 24 Hours: Temp Pulse Resp BP Pulse Ox O2 Del Method O2 Flow Rate 98.7 F 76 28 H 133/78 92 L Nasal Cannula 4 09/29/23 07:26 09/29/23 11:31 09/29/23 08:20 09/29/23 07:26 09/29/23 11:31 09/29/23 11:31 09/29/23 11:31 Laboratory Results - last 24 hr 09/29/23 05:33: WBC 16.2 H D, RBC 4.89, Hgb 15.4, Hct 46.1, MCV 94.3, MCH 31.5 H , MCHC 33.4, RDW 14.9, Plt Count 137 L, MPV 10.0, Neut % (Auto) 92.5 H, Lymph % (Auto) 4.8 L, Hemphill % (Auto) 2.0, Eos % (Auto) 0.4, Baso % (Auto) 0.2, Neut # (Auto) 15.0 H, Lymph # (Auto) 0.8, Hemphill # (Auto) 0.3, Eos # (Auto) 0.1, Baso # (Auto) 0.0, Total Counted 100, Neutrophils % (Manual) 83 H, Band Neutrophils % 11.0 H, Lymphocytes % (Manual) 5 L, Monocytes % (Manual) 1 L, Platelet Estimate Slight decrease, RBC Morphology Normal, Sodium 137, Potassium 4.0, Chloride 97 L , Carbon Dioxide 33 H, Anion Gap 11.0, BUN 32 H, Creatinine 1.10 H, Estimated Creat Clear 81, Estimated GFR 51 L, Est GFR ( Amer) 62 D, Glucose 131 H, Calcium 8.6, Magnesium 2.2, Total Bilirubin 0.7, AST 53 H, ALT 45, Alkaline Phosphatase 123, Total Protein 6.7, Albumin 3.3 L, Globulin 3.4 H, Album in/Globulin Ratio 1.0 L I & O for Last 24 hours: Intake & Output 09/26/23 09/27/23 09/28/23 09/29/23 23:59 23:59 23:59 23:59 Intake Total 240 / 240 1290 / 1290 1500 / 1500 480 / 480 Output Total 0 / 0 1250 / 1250 201 / 201 100 / 100 Balance 240 / 240 40 / 40 1299 / 1299 380 / 380 Weight 95.481 kg 95.3 kg 92.986 kg 92.98 kg Microbiology Reports for the Last 24 Hours: Microbiology 09/26/23 15:05 Blood Blood Culture - Preliminary 09/26/23 14:50 Blood Blood Culture - Preliminary Constitutional Constitutional: no acute distress, chronically ill appearing and cooperative *Routine HEENT Exam Head: Present normocephalic Eye: Present EOMI and PERRL ENT: Present mucous membranes moist *Routine Neck Exam Neck: Present supple; Absent lymphadenopathy *Routine Respiratory Exam Respiratory: Absent rhonchi, wheezes or crackles *Routine Cardiovascular Exam Cardiovascular: Present RRR *Routine Abdominal Exam Abdominal: Present soft and normoactive bowel sounds; Absent tenderness *Routine Rectal Exam Patient deferred: visual exam *Routine Exam Patient deferred: external exam *Routine Extremities Exam Extremities: Absent cyanosis, clubbing or edema *Routine Skin Exam Skin: Present warm; Absent rash *Routine Neurological Exam Neurological: Present alert, oriented X3 and moving all extremities; Absent altered mental status Results Data Completed and Pending Labs on day of discharge: Labs from last 24 hours 09/29/23 05:33 WBC 16.2 H D RBC 4.89 Hgb 15.4 Hct 46.1 MCV 94.3 MCH 31.5 H MCHC 33.4 RDW 14.9 Plt Count 137 L MPV 10.0 Neut % (Auto) 92.5 H Lymph % (Auto) 4.8 L Hemphill % (Auto) 2.0 Eos % (Auto) 0.4 Baso % (Auto) 0.2 Neut # (Auto) 15.0 H Lymph # (Auto) 0.8 Hemphill # (Auto) 0.3 Eos # (Auto) 0.1 Baso # (Auto) 0.0 Total Counted 100 Neutrophils % (Manual) 83 H Band Neutrophils % 11.0 H Lymphocytes % (Manual) 5 L Monocytes % (Manual) 1 L Platelet Estimate Slight decrease RBC Morphology Normal Sodium 137 Potassium 4.0 Chloride 97 L Carbon Dioxide 33 H Anion Gap 11.0 BUN 32 H Creatinine 1.10 H Estimated Creat Clear 81 Estimated GFR 51 L Est GFR ( Amer) 62 D Glucose 131 H Calcium 8.6 Magnesium 2.2 Total Bilirubin 0.7 AST 53 H ALT 45 Alkaline Phosphatase 123 Total Protein 6.7 Albumin 3.3 L Globulin 3.4 H Albumin/Globulin Ratio 1.0 L Preliminary micro results at discharge 09/26/23 15:05 Blood Culture - Preliminary Blood 09/26/23 14:50 Blood Culture - Preliminary Blood DS: Diagnosis Discharge Diagnosis (1) Sepsis: Status: Acute Code(s): A41.9 - Sepsis, unspecified organism (2) E coli bacteremia: Status: Acute Code(s): R78.81 - Bacteremia; B96.20 - Unspecified Escherichia coli [E. coli] as the cause of diseases classified elsewhere (3) Pneumonia: Status: Acute Code(s): J18.9 - Pneumonia, unspecified organism Qualifiers: Laterality: right Lung location: lower lobe of lung Pneumonia type: due to unspecified organism Qualified Code(s): J18.9 - Pneumonia, unspecified organism (4) Chest pain: Status: Acute Code(s): R07.9 - Chest pain, unspecified Qualifiers: Chest pain type: unspecified Qualified Code(s): R07.9 - Chest pain, unspecified (5) Esophagitis: Status: Acute Code(s): K20.90 - Esophagitis, unspecified without bleeding (6) COPD exacerbation: Status: Acute Code(s): J44.1 - Chronic obstructive pulmonary disease with (acute) exacerbation (7) Class II obesity: Status: Acute Code(s): E66.9 - Obesity, unspecified (8) Tobacco use disorder: Status: Acute Code(s): F17.200 - Nicotine dependence, unspecified, uncomplicated Meds Home Medications and Allergies Home Medications Medication Instructions Recorded Confirmed Type furosemide 40 mg tablet 40 mg PO DAILY 09/26/23 09/26/23 History paroxetine HCl 10 mg tablet 10 mg PO DAILY 09/26/23 09/26/23 History ibuprofen 800 mg tablet 800 mg PO Q8HP PRN Mild Pain 09/27/23 09/27/23 History (Scale Score 1-4) ipratropium bromide 21 mcg (0.03 2 spray intranasal BID 09/27/23 09/27/23 History %) nasal spray aspirin 81 mg tablet,delayed 81 mg PO DAILY 30 days #30 tabs 09/29/23 Rx release levofloxacin 750 mg tablet 750 mg PO DAILY 7 days #7 tabs 09/29/23 Rx New Prescriptions to Start Prescriptions: Daniele Grijalva levofloxacin Daniele Wilkerson Allergies Allergy/AdvReac Type Severity Reaction Status Date / Time Penicillins [PENICILLINS] Allergy Intermediate SWELLING Verified 11/17/20 11:28 codeine [CODEINE] Allergy Mild VOMITING, Verified 11/17/20 11:28 WHIVES morphine [MORPHINE] Allergy Mild ITCHING Verified 11/17/20 11:28 AND VOMITING Sulfa (Sulfonamide Allergy Mild WHEEZES Verified 11/17/20 11:28 Antibiotics) [SULFA (SULFONAMIDE ANTIBIOTICS)] Discharge Plan Disposition Patient Disposition: Home, Self-Care Condition: Fair Discharge Order Discharge Orders: Discharge Order (Routine); Ordered 09/29/23 Ordered By: Daniele Wilkerson Follow up Plan Follow up with: Callum Leiva MD [Primary Care Provider] - 10/03/23 3:00 pm Tlyer Montaño MD [Staff Physician] - 10/10/23 10:45 am Prescriptions/Medication Reconciliation: New aspirin 81 mg Tablet,Delayed Release (Dr/Ec) 81 mg PO DAILY 30 Days Qty: 30 0RF levofloxacin 750 mg tablet 750 mg PO DAILY 7 Days Qty: 7 0RF Continued paroxetine HCl 10 mg tablet 10 mg PO DAILY Patient Comments: TAKE 1 TABLET BY MOUTH EVERY DAY IN THE MORNING ipratropium bromide 21 mcg (0.03 %) spray,non-aerosol 2 spray INTRANASAL BID Patient Comments: INHALE 2 SPRAYS IN EACH NOSTRIL EVERY 12 HOURS DIRECTED BY PROVIDER ibuprofen 800 mg tablet 800 mg PO Q8HP PRN (Reason: Mild Pain (Scale Score 1-4)) Held furosemide 40 mg tablet 40 mg PO DAILY Hold Instructions: Pending follow-up with PCP or cardiology and reevaluation of blood pressure Patient Comments: TAKE 1 TABLET BY MOUTH DAILY NEEDED (SWELLING). Other Ambulatory Orders: Home Medical Equipment (Routine) Location: None Selected Ordered By: Daniele Wilkerson Problem Reconciliation Problems Reviewed?: Yes Patient Discharge Instructions ACTIVITY: Continue current activity and Ambulate as tolerated DIET: continue same diet Patient Instructions: DI for Pneumonia -- Adult, DI for Diabetes Type 2, DI for Chest Pain, Catheter-Associated Urinary Tract Infection Providers Primary Care Provider: Callum Leiva Admit Provider: Daniele Wilkerson Attending Provider: Daniele Wilkerson
--- NOTE | 2023-09-29 12:06 | HMH.PTEV ---
Physical Therapy Evaluation Rehab PT IP Evaluation Start: 09/29/23 09:45 Freq: ONCE Status: Active Protocol: Document 09/29/23 11:00 PHORNE (Rec: 09/29/23 12:06 PHORNE Laptop) Subjective/History History History 57 yowf adm to [facility] with PNA and hypoxia. She has PMH of tobacco use, 86-libf-brlt history, neuropathy, and class 2 obesity. She reports she lives alone, no steps to enter the home and she is independent with all mobility and ADLs without AD prior to adm. She uses an AFO on her R foot/ankle due to a preexisting condition. Subjective Subjective Pt reports, I feel great. She readily agrees to mobility assessment. New diagnosis of cancer in past 12 No months? Rehab PT IP Eval Objective Appearance Patient Behavior Appropriate Patient Orientation Person,Place,Time Difficulty following instructions none Speech Pattern Clear Ambulation Patient Able to Ambulate Yes Ambulation Observation IP General Gait Pattern Observation No Deviations/Normal Ambulation Distance (feet) 40 Ambulation Assistive Device None Ambulation Ability Independent Balance Ability to Arise Able, uses arms to help Sitting Balance Steady, safe Standing Balance Steady, wide stance Dynamic Sitting Balance Ability Good Dynamic Standing Balance Ability Good Transfers Bed Transfer Ability Independent Chair Transfer Ability Independent Sit to Stand Bed Transfer Ability Independent Sit to Stand Chair Transfer Ability Independent Rehab PT IP prob,goals,plan Problems Date of Evaluation: 09/29/23 Discharge Plan PT Discharge Plan Pt is currently at baseline status for all mobility and transfers. She is appropriate to return home once medically stable for d/c and has no inpatient therapy needs at this time. Eval Complexity Eval Charge Codes 26919 - High Complexity PHYSICIAN CERTIFICATION: I certify the specified therapy services for Yaneth Dunbar are required, authorized, and reviewed every 30 days.
--- NOTE | 2023-09-29 13:55 | HMH.OTEV ---
OT Inpatient Evaluation Rehab OT IP Evaluation Start: 09/29/23 09:45 Freq: ONCE Status: Active Protocol: Document 09/29/23 13:49 JAMILA (Rec: 09/29/23 13:54 JAMILA [id number]) Rehab OT IP Assessment Subjective History Ms. Dunbar is a 7-year-old female with history of tobacco use, [id number] history, neuropathy, and class 2 obesity. She presented to the ER because of onset of chest pressure, shortness of breath, vomiting and headache. States that for the past 3 to 4 days she has been having a headache that comes up the back of her shoulders over the back of her head that is severe at times. Will feel hot and then cold. Today she was getting ready to go mow when she had onset of chest pressure, like a brick on her chest across the front of her chest. Shortly thereafter she developed shortness of breath and nausea and vomiting. Denies ever having symptoms like this before. Her mother called EMS for evaluation and to bring her to the ER. On arrival, patient found to be febrile with fever of 101.5. O2 sats in the. Patient tachycardic. Workup with normal white count but neutrophil predominance of 90% . Blood gas normal. Lactic acid elevated. Initial troponin obtained less than 0. 01. EKG obtained showing no acute ischemic changes. Chest x-ray obtained showing linear density at fissure in right lung field. No significant airspace disease or consolidation. Medicine salted for admission. On evaluation, patient is on 2 L oxygen initially. Oxygen was turned off with sats remaining 90 to 92%. Fever improved. Feeling little bit better after getting some IV fluids and antibiotics. Chest pressure still present but better. No longer having any nausea or vomiting. Does complain of some epigastric pain at this time. Patient hemodynamically stable. Admitted for observation and cardiology consult given chest pressure. Patient lives alone in 1 story home. Independent with ADLs and fx'l mobility. Subjective I'm ready to go home. Educated Patient re: OT and process of therapy. Patient is able to complete all bed mobility, transfers and ADLs independently. Patient stated to be sent home with 02 at d/c . Objective Patient Orientation Person,Name,Year Right Upper Extremity Gross ROM WFL Left Upper Extremity Gross ROM WFL Bed Mobility bed mobility - supine/sit Assist Level Independent Transfer Training Sit/Stand/Pivot Transfer Assist Level Independent Chair Transfer Ability Independent Chair Transfer Technique Sit to/from Ambulatory Rehab OT IP prob,goals,plan Problems Date of Evaluation: 09/29/23 Rehab Potential Rehab Potential Innapropriate for Skilled Therapy Discharge Plan OT Discharge Plan Recommend patient to return home after medical d/c. Eval Complexity Eval Charge Codes 84730 - Low Complexity PHYSICIAN CERTIFICATION: I certify the specified therapy services for Yaneth Dunbar are required, authorized, and reviewed every 30 days.
--- NOTE | 2023-09-29 14:13 | CARE MANAGER ---
Patient discharging home today with need for supplemental home O2. Patient's room air saturation was 85%. Patient Choice singed for Tiesha. Order/clinical faxed and O2 will be delivered prior to discharge.
[2023-09-29] MEDS: ERTAPENEM SODIUM 1 GM VIAL IM (15:26)
--- NOTE | 2023-10-03 14:25 | CARE MANAGER ---
Contacted patient related to hospital discharge. She states that she is doing very well. She is on her way to her follow up with PCP and is aware of when her follow up with cards is. She denies questions or concerns and was very pleased with the care she received. RASHAWN Leiva
== END 2023-09-29 15:51 | disposition home or self-care (01) | DRG 871 ==
LOC: ER 15:22 → 2ND 17:40
PROVIDERS: Emergency Medicine; Physician Assistant; Admitting Provider Internal Medicine Adolescent Medicine; Emergency Provider Emergency Medicine; PCP Family Medicine; Visit Provider Internal Medicine Adolescent Medicine
DX: A41.51 Sepsis due to Escherichia coli [E. coli] (principal); I21.A1 Myocardial infarction type 2; J18.9 Pneumonia, unspecified organism; J96.01 Acute respiratory failure with hypoxia; J44.1 Chronic obstructive pulmonary disease with (acute) exacerbation; R65.20 Severe sepsis without septic shock; E66.9 Obesity, unspecified; F17.210 Nicotine dependence, cigarettes, uncomplicated; I10 Essential (primary) hypertension; E78.5 Hyperlipidemia, unspecified; Z99.81 Dependence on supplemental oxygen; Z68.29 Body mass index [BMI] 29.0-29.9, adult; K20.90 Esophagitis, unspecified without bleeding
CPT/HCPCS: 36415; 71045; 71046; 71275; 80053; 80061; 82803; 83605; 83735; 84443; 84484; 85007; 85025; 85651; 86140; 87040; 87186; 93005; 93306; 94640; 94760; 94761; 97163; 97165; 99291; J0131; J1335; J1956; J2185; J2405; Q9967

== ENCOUNTER 2023-10-20 07:15 | Outpatient (CLI) | payer MEDICARE, MEDICAID, SELFPAY ==
--- NOTE | 2023-10-20 | CA_ITS ---
APPROVED REPORT Exam: Pharmacologic Technologist: Margaret Rowley, Ht: 5 ft 4 in Wt: 197 lbs BSA: 1.94 m2 HR: 69 bpm BP: 131/79 mmHg Rhythm: NSR, rightward axis, low voltage QRS Medical History Medications: Aspirin,,,,, Gabapentin,,,,, Ibuprofen,,,,, Atrovent,,,,, Furosemide,,,,, PaROXETINE HCI,,,,, Cardiac Risk Factors: Smoking Stress Test Details Test: LEXISCAN HR Resting HR: 72 bpm Max Heart Rate (APMHR): 161 bpm Max HR Achieved: 90 bpm Target HR (85% APMHR): 137 bpm % of APMHR: 56 Recovery HR: 79 bpm BP Resting BP: 131.0/79.0 mmHg Max BP: 141.0/69.0 mmHg Recovery BP: 135.0/66.0 mmHg ECG Resting ECG: NSR, rightward axis, low voltage QRS Stress ECG: No significant ST changes Arrhythmia: None Clinical Exercise duration: 04:00 min Highest Stage Achieved: Exercise capacity: 1.0 METs Stress ECG Conclusion During lexiscan pt experinced mild SOA and stomach discomfort. No CP noted. No arrhythmias noted. No significant ST changes. Conclusion: Unremarkable lexiscan stress. Myoview images reported separately. Test Summary REST . . . . . . . Sitting REST 04:18 . . 72 . 131/ 79 . . Stage 1 01:00 . . 88 . . . . Stage 2 01:00 . . 85 . . . . Stage 3 01:00 . . 79 . 124/ 83 . . Stage 4 01:00 . . 77 . 124/ 82 . Stop exercise at 04:00 RECOVERY 01:00 . . 89 . . . . RECOVERY 02:00 . . 82 . . . . RECOVERY 03:00 . . 81 . 123/ 80 . . RECOVERY 03:19 . . 79 . 123/ 80 . . Electronically signed by : Reny Ballard MD 10/23/2023 12:03:26
--- NOTE | 2023-10-20 07:16 | NM_ITS ---
APPROVED REPORT Exam: Nuclear Stress Test Indication: obesity, dm, former smoker, fm hx, c.p., sob, abn ekg Patient Location: Outpatient Stress Tech: Margaret Rowley NM Tech:Haydee Martini JESUS ALBERTO RT (R)(N)(M) Ht: 5 ft 3 in Wt: 183 lbs Bra Size: c HR: 69 bpm BP: 131/79 mmHg BSA: 1.86 m2 TID: 1.16 BMI: 32.4 History: obesity, dm, former smoker, fm hx, c.p., sob, abn ekg Procedure: Patient received 0.4 mg of intravenous Lexiscan, resting heart rate 69 bpm, resting blood pressure 131/79 mmHg, with Lexiscan maximum heart rate achieved was 90 bpm which is % of the maximum predicted heart rate and blood pressure was 141/69 mmHg. With Lexiscan, patient denied any complaint of chest pain. Cardiac Stress and Resting SPECT Images: Cardiac Stress and Resting SPECT images were obtained using technetium 99m Myoview 31.6 mCi stress and 10.67 mCi at rest. Resting and stress imaging in supine and prone positions demonstrate no evidence of fixed or reversible perfusion defects. Gated imaging demonstrates normal global and regional LV systolic function. LVEF is calculated at 60%. Conclusion: No evidence of fixed or reversible perfusion defects. Gated imaging demonstrates normal global and regional LV systolic function. LVEF is calculated at 60%. Electronically signed by : Reny Ballard MD 10/23/2023 12:04:24
[2023-10-20] MEDS: SODIUM CHLORIDE 0.9% 10ML SYR (RAD ONLY) 10 ML IV ×2 (07:35→08:50)
[2023-10-20] MEDS: REGADENOSON 0.4MG/5ML SYRINGE 0.4 MG IV (08:50)
[2023-10-20] MEDS: ISOTOPE MYOVIEW (PER STUDY) 1 DOSE IV (09:39)
== END 2023-10-20 23:59 | disposition home or self-care (01) ==
LOC: RAD 07:16
PROVIDERS: PCP Family Medicine; Visit Provider Physician Assistant
DX: R07.9 Chest pain, unspecified (principal); R94.31 Abnormal electrocardiogram [ECG] [EKG]; R79.89 Other specified abnormal findings of blood chemistry
CPT/HCPCS: 78452; 93017; 93018; A9502; J2785

== ENCOUNTER 2023-12-08 10:29 | Emergency (ER) | payer MEDICARE, MEDICAID, SELFPAY ==
[2023-12-08] VITALS (16 sets, daily range): BP systolic 90–124; BP diastolic 54–82; PULSE 78–94; RESP 16–18; TEMP 37.1–37.8; O2SAT 91–97; BMI 34.3
--- NOTE | 2023-12-08 10:40 | XR_ITS ---
FINAL REPORT CLINICAL HISTORY: Seizure-like activity COMPARISON: 09/29/2023 FINDINGS: SINGLE-VIEW CHEST The heart size is normal. The mediastinum is normal. There are mild chronic changes in both lungs. Fusion hardware is seen in the lower cervical spine. There is no pneumothorax. IMPRESSION: No acute cardiopulmonary process. Reviewed, Interpreted and Dictated by Victor Hugo Hudson MD Transcribed by Maritza Neil Authenticated and [facility]
--- NOTE | 2023-12-08 10:44 | PC.NURSE ---
DR STARK AT BEDSIDE
--- NOTE | 2023-12-08 10:49 | PC.NURSE ---
I notified resp. that there is a VBG in the lab for them.
--- OUTSIDE RECORDS SUMMARY | 2023-12-08 10:52 | XMS_ITS | Clinical Summary ---
Author Organization [facility] Address [address] [place] [address] Phone Care Team Providers Care Interior Mechanic Name Role Phone Hao ROBERSON, Brant Jaramillo [facility] [ ] Conditions or Problems Problem Name Problem Code Onset Date Status Entry Date Provider Comment Standard Description Annotate Diarrhea 98349313 (SNOMED CT) 01/31 Active 01/31 Brant Bui MD Diarrhea Hematuria, microscopic 231386885 (SNOMED CT) 01/27 Active 01/27 Sofia Nilton Microscopic hematuria Neutrophilic leukemoid reaction D72.823 (ICD-10-CM ) 01/27 Active 01/27 Sofia Nilton Leukemoid reaction Nicotine dependence, cigarettes F17.210 (ICD-10-CM ) 01/27 Active 01/27 Teodoro Michele Nicotine dependence, cigarettes, uncomplicated Diverticulitis of large intestine with perforation, abscess without bleeding K57.20 (ICD-10-CM ) 01/27 Active 01/27 Ángela W Diverticulitis of large intestine with perforation and abscess without bleeding Medications Medication Instructions Start Date Stop Date Generic Name FORMERLY NAMED [facility] Provider INVANZ 1 GM INTRAVENOUS SOLUTION RECONSTITUTED 1gm IV Q24hrs/ INPAT ERTAPENEM SODIUM 49215101781 Niki Barreto RN INVANZ 1 GM INTRAVENOUS SOLUTION RECONSTITUTED 1gm IV Q24hrs/ INPAT ERTAPENEM SODIUM 60243746470 Lacie Keturah FLORASTOR 250 MG CAPS by mouth twice daily SACCHAROMYCES BOULARDII [id number] Teodoro P PERCOCET 5-325 MG TABS 1-2 tabs by mouth as needed every six hours OXYCODONE-ACETAM INOPHEN [id number] Teodoro P ALEVE 220 MG CAPS by mouth twice daily as needed NAPROXEN SODIUM [id number] Teodoro P BUPROPION HCL ER (SMOKING DET) 150 MG [id number] by mouth twice daily BUPROPION HCL (SMOKING DETER) [id number] Teodoro P Medications Administered No information available. [...] antibiotics 2015 CPT-cwl Weekly Labs (Continue) 01/31 CPT-07134 CMP [id number] CBC with Differential 2015 CPT- stat weekly Stat Weekly Labs 00818 Hepatitis C Atb: (ICD 10 Code: Z11.59) [...]
--- NOTE | 2023-12-08 10:54 | PC.NURSE ---
RAD at for CXR
--- NOTE | 2023-12-08 10:54 | PC.WOUNDNOTE ---
XR AT BEDSIDE
[2023-12-08 10:56] LABS: Lactate Venous 3.2 mmol/L (0.4-2.0); VBG Base Excess 0.9 mmol/L (-2.4-2.3); VBG HCO3 24.6 mmol/L (23-30); VBG Oxygen Saturation 86.1 % (50-70); VBG PCO2 34.9 mmol/L (35-51); VBG PH 7.47 mmol/L (7.31-7.41); VBG Total CO2 25.7 mmol/L (23-27)
[2023-12-08 10:56] LABS: Basophils # 0.1 K/mm3 (0-0.2); Basophils % 0.2 % (0.1-2.0); Eosinophils # 0.1 K/mm3 (0.0-0.4); Eosinophils % 0.4 % (0.1-12.0); Hematocrit 38.2 % (37.0-47.0); Hemoglobin 12.7 g/dL (12.2-16.2); Lymphocytes # 0.5 K/mm3 (0.7-4.5); Lymphocytes % 2.1 % (10-50); Mean Corpuscular HGB Conc 33.2 g/dL (31.8-35.4); Mean Corpuscular Hemoglobin 30.7 pg (27.0-31.2); Mean Corpuscular Volume 92.5 fl (81-99); Monocytes # 0.3 K/mm3 (0.1-1.0); Monocytes % 1.3 % (1.7-9.3); Neutrophils # 21.1 K/mm3 (1.8-7.8); Platelet Count 182 K/mm3 (142-424); Red Blood Count 4.13 M/mm3 (4.20-5.40); Red Cell Distribution Width 15.8 % (11.5-17.5)
--- NOTE | 2023-12-08 10:56 | ED_ITS ---
Discharge Plan Disposition Patient Disposition: Xfer Short-Term Hosp Chief Complaint: Seizure Prescriptions Prescriptions: No Action gabapentin 400 mg capsule 400 mg PO TID Patient Comments: TAKE 1 CAPSULE BY MOUTH THREE TIMES A DAY paroxetine HCl 10 mg tablet 10 mg PO DAILY Patient Comments: TAKE 1 TABLET BY MOUTH EVERY DAY IN THE MORNING furosemide 40 mg tablet 40 mg PO DAILY Patient Comments: TAKE 1 TABLET BY MOUTH DAILY NEEDED (SWELLING). ipratropium bromide 21 mcg (0.03 %) spray,non-aerosol 2 spray INTRANASAL BID Patient Comments: INHALE 2 SPRAYS IN EACH NOSTRIL EVERY 12 HOURS DIRECTED BY PROVIDER ibuprofen 800 mg tablet 800 mg PO Q8HP PRN (Reason: Mild Pain (Scale Score 1-4)) aspirin 81 mg Tablet,Delayed Release (Dr/Ec) 81 mg PO DAILY 30 Days Qty: 30 0RF Referrals Follow up/Referrals: Callum Leiva MD [Primary Care Provider] - See instructions Clinical Impressions Clinical Impression: Sepsis, Calcium nephrolithiasis, Hydronephrosis Instructions Patient Instructions: DI for Seizure Disorder -- Adult, DI for Seizure (Not Epilepsy/Seizure Disorder), DI for Seizure Disorder -- Child Print Language Print Language: Hungarian Discharge ED Provider: Mak Cordova General Adult HPI General Chief complaint: Seizure Stated complaint: seizures Time Seen by Provider: 12/08/23 10:39 Mode of Arrival: Ambulatory Source of Information: Patient Limitations: No Limitations Description of Symptoms (Recalled from ER Triage Doc. by RN): PT REPORTS SEIZURES X 1 MONTH. REPORTS SUDDEN ONSET OF FEELING COLD UNCONTROLLED TREMBLE THAT LASTS 10-15 MINUTES. REPORTS BACK PAIN AND LEFT SIDED NECK AND HEAD PAIN. HAS NOT BEEN DIAGNOSED WITH SEIZURES. 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 Consequentially, this preceding description of symptoms, which may include the patient's categorized chief complaint in the EMR, do not reflect my personal clinical impression, and the ultimate description of history of present illness and patient stated complaints should be deferred to this section of the note. Unless stated otherwise or congruent with this section of the note, additional signs, symptoms, or incongruence should be interpreted as inaccurate with my clinical impression. Related Data Home Medications ?Medication ?Instructions ?Recorded ?Confirmed furosemide 40 mg tablet 40 mg PO DAILY 09/26/23 10/10/23 paroxetine HCl 10 mg tablet 10 mg PO DAILY 09/26/23 10/10/23 ibuprofen 800 mg tablet 800 mg PO Q8HP PRN Mild Pain 09/27/23 10/10/23 (Scale Score 1-4) ipratropium bromide 21 mcg (0.03 2 spray intranasal BID 09/27/23 10/10/23 %) nasal spray gabapentin 400 mg capsule 400 mg PO TID 10/10/23 10/10/23 Previous Rx's ?Medication ?Instructions ?Recorded aspirin 81 mg tablet,delayed 81 mg PO DAILY 30 days #30 tabs 09/29/23 release Allergies Allergy/AdvReac Type Severity Reaction Status Date / Time Penicillins [PENICILLINS] Allergy Intermediate SWELLING Verified 10/10/23 11:09 codeine [CODEINE] Allergy Mild VOMITING, Verified 10/10/23 11:09 WHIVES morphine [MORPHINE] Allergy Mild ITCHING Verified 10/10/23 11:09 AND VOMITING Sulfa (Sulfonamide Allergy Mild WHEEZES Verified 10/10/23 11:09 Antibiotics) [SULFA (SULFONAMIDE ANTIBIOTICS)] [facility] Disclaimer: The information contained in this section may have been updated after the patient was seen, as this information can be updated by other users. Medical History (Updated 12/08/23 @ 15:40 by Mak Cordova MD) Elevated troponin Chest pain CRPS (complex regional pain syndrome type I) Rupture of extensor tendon of finger Poison raquel dermatitis Class II obesity Surgical History H/O foot surgery Family History Other Dementia Social History Smoking Status: Former smoker tobacco type: cigarettes packs per day: 1 second hand exposure: Yes alcohol intake: never substance use type: denies use current occupational status: disabled Travel in the last 8 weeks: None household members: other housing: house current occupational exposures/hazards: No caffeine: Yes ROS Obtained: Yes All systems reviewed & no additional complaints except as documented Physical Exam General General appearance: alert and anxious Head Head exam: atraumatic and normocephalic Eye Eye exam: Present normal appearance, PERRL and EOMI Neck Neck exam: Present normal inspection, full ROM and trachea midline Respiratory Respiratory exam: Present normal lung sounds bilaterally; Absent respiratory distress, wheezes, stridor, accessory muscle use or prolonged expiratory phase Cardiovascular Cardiovascular exam: Present regular rate, normal rhythm and other (Pulses equal symmetric in upper and lower extremities) Abdominal Exam Abdominal exam: Present soft; Absent distention, tenderness or pulsatile mass Extremities Exam Extremities exam: Absent edema Neurological Exam Neurological exam: Present alert, oriented X3, CN II-XII intact and normal gait; Absent motor sensory deficit Skin Skin exam: Present warm and dry; Absent diaphoresis or erythema Medical Decision Making Medical Records Medical records reviewed: Yes I reviewed the patient's medical records. Rashel Inquiry Pt receiving controlled substance: No Rashel was queried for this patient: No Vital Signs: 12/08/23 10:31 12/08/23 11:31 12/08/23 11:32 Temperature 98.7 F Temperature Source Oral Pulse Rate 85 87 Pulse Rate [Radial] 87 Respiratory Rate 18 18 18 Blood Pressure 107/64 L 107/64 L Blood Pressure [Left Arm] 96/68 L Blood Pressure Mean [Left Arm] 77 Blood Pressure Source [Left Arm] Automatic Cuff Blood Pressure Position [Left Arm] Sitting 02 Sat by Pulse Oximetry 97 95 95 Oxygen Delivery Method Room Air Room Air 12/08/23 12:00 12/08/23 12:30 12/08/23 13:00 Temperature Temperature Source Pulse Rate 82 84 88 Pulse Rate [Radial] Respiratory Rate 16 18 16 Blood Pressure 98/57 L 113/66 110/80 Blood Pressure [Left Arm] Blood Pressure Mean [Left Arm] Blood Pressure Source [Left Arm] Blood Pressure Position [Left Arm] 02 Sat by Pulse Oximetry 96 95 95 Oxygen Delivery Method Room Air Room Air Room Air Lab Data Lab Results 12/08/23 10:47: WBC 22.0 H*, RBC 4.13 L, Hgb 12.7, Hct 38.2, MCV 92.5, MCH 30.7, MCHC 33.2, RDW 15.8, Plt Count 182, MPV 10.0, Neut % (Auto) 96.0 H, Lymph % (Auto) 2.1 L, Mcpherson % (Auto) 1.3 L, Eos % (Auto) 0.4, Baso % (Auto) 0.2, Neut # (Auto) 21.1 H, Lymph # (Auto) 0.5 L, Mcpherson # (Auto) 0.3, Eos # (Auto) 0.1, Baso # (Auto) 0.1, Total Counted 100, Neutrophils % (Manual) 97 H, Lymphocytes % (Manual) 3 L, Platelet Estimate Normal, RBC Morphology Normal, Sodium 134 L, P otassium 2.6 L*, Chloride 101, Carbon Dioxide 26, Anion Gap 9.6, BUN 40 H, C reatinine 1.50 H, Estimated Creat Clear 56, Estimated GFR 36 L, Est GFR ( Amer) 43 L, Glucose 136 H, Calcium 8.4, Magnesium 1.8, Total Bilirubin 1.0, AST 46 H, ALT 39, Alkaline Phosphatase 259 H, Troponin I < 0.01, Total Protein 6.3, Albumin 2.8 L, Globulin 3.5 H, Albumin/Globulin Ratio 0.8 L, TSH 2.05, Thyroxine (T4) 9.4 12/08/23 10:54: VBG pH 7.47 H, VBG pCO2 34.9 L, VBG pO2 51.0 H, VBG HCO3 24.6, VBG Total CO2 25.7, VBG O2 Saturation 86.1 H, VBG Base Excess 0.9, VBG Lactic Acid 3.2 H 12/08/23 11:29: Urine Color Yellow, Urine Appearance Cloudy, Urine pH 6.0, Ur Specific Topock 1.010, Urine Protein Negative, Urine Glucose (UA) Negative, Urine Ketones Negative, Urine Blood 2+, Urine Nitrate Positive, Urine Bilirubin Negative, Urine Urobilinogen 1.0, Ur Leukocyte Esterase 3+ A, Urine RBC 5-10, Urine WBC Tntc, Ur Squamous Epith Cells Occasional, Urine Bacteria 2+ 12/08/23 15:08: Lactate 2.2 H 12/08/23 10:47 12/08/23 10:47 Orders (Tests/Meds): ED MEDICATIONS Generic Name Dose Route Start Last Admin Trade Name Freq PRN Reason Stop Dose Admin Miscellaneous 1 each 12/08/23 11:45 12/08/23 14:47 Vancomycin Consult Request NOTAPPLIC 01/07/24 11:44 1 each CONSULT PHARMACY [facility] Administration Discontinued Medications Generic Name Dose Route Start Last Admin Trade Name Nishant PRN Reason Stop Dose Admin Cefepime HCl 2 gm/ Sodium 100 mls @ 200 mls/hr 12/08/23 11:34 12/08/23 12:00 Chloride IV 12/08/23 12:03 200 mls/hr ONCE ONE Administration Lactated Ringer's 2,640 mls @ 1,320 mls/hr 12/08/23 11:34 12/08/23 11:39 Lactated Ringer's 1000 Ml Bag 30 ml/kg infuse over 2 hr (2640 ml) 12/08/23 13:33 1,320 mls/hr IV Administration .Q2H ONE Potassium Chloride/Water 100 mls @ 100 mls/hr 12/08/23 11:45 12/08/23 14:48 Potassium Chloride 10meq/100ml Ivpb IV 12/08/23 14:44 100 mls/hr Q1H ELKIN Administration Vancomycin/PEG/NADA/Lysine/Water 1.5 gm in 300 mls @ 150 mls/hr 12/08/23 11:45 12/08/23 14:24 Vancomycin 1.5gm/300ml (Peg) Premix IV 12/08/23 13:44 150 mls/hr ONCE ONE Administration Iopamidol 75 ml 12/08/23 14:28 12/08/23 14:31 Iopamidol-370 (76%);100ml Bottle IV 12/08/23 14:29 75 ml ONCE ONE Administration Potassium Chloride 60 meq 12/08/23 11:34 12/08/23 11:40 Potassium Chloride 20meq Tab PO 12/08/23 11:35 60 meq ONCE ONE Administration Sodium Chloride 10 ml 12/08/23 14:28 12/08/23 14:31 Sodium Chloride 0.9% 10ml Syr (Rad Only) IV 12/08/23 14:29 10 ml ONCE ONE Administration ORDERS Category Date Time Status CT abdomen pelvis w con Stat Cat Scan 12/08/23 13:57 Taken POCUS Point of Care (ER Only) Stat Exams 12/08/23 10:42 Completed XR chest portable Stat Exams 12/08/23 10:40 Completed Complete Blood Count Auto Diff Stat Lab 12/08/23 10:47 Completed Comprehensive Metabolic Panel Stat Lab 12/08/23 10:47 Completed Lactic Acid Follow Up (RFLX 1) Stat Lab 12/08/23 15:08 Completed Magnesium Stat Lab 12/08/23 10:47 Completed T4 (Thyroxine) Stat Lab 12/08/23 10:47 Completed TSH [Thyroid Stimulating Hormone] Stat Lab 12/08/23 10:47 Completed Troponin I Stat Lab 12/08/23 10:47 Completed UA [Urinalysis and Microscopic] Stat Lab 12/08/23 11:29 Completed Blood Culture Stat Micro 12/08/23 11:20 Received Urine Culture Stat Micro 12/08/23 11:29 Received Venous Blood Gas Stat RT 12/08/23 10:54 Completed Medical Decision Narrative: 57-year-old female history of hypertension, anxiety, complex regional pain syndrome right lower extremity, COPD no longer smoking, presenting with concern for seizure-like activity. Patient states that over the past 3 months or so she has been having uncontrolled seizures, now and again. States that her most recent 1 was this morning. It lasts 10 to 15 minutes. Patient states she feels cold, starts shivering all over, and this last for 10 to 15 minutes. She states that her Apple Watch tells her that her heart rate gets up into the 170s. She remembers the episodes, no tongue biting, no bowel or bladder dysfunction, no unilateral deficits, no history of seizure activity in the past. Denies any other associated symptoms. Once she piles blankets on herself and drinks Gatorade after she starts shivering, these episodes self cayla. History was obtained via conversation with patient. On arrival, patient hemodynamically stable, alert, [oriented x4, ][appropriate, ]GCS [15], moving all extremities spontaneously, pupils equal and reactive to light. Full physical exam performed and significant for anxious. Female in no acute distress. Mildly hypotensive nontachycardic. Afebrile. Cardiac exam within normal limits. Lungs are clear to auscultation anterior and posterior. Cranial nerve, cerebellar, motor, sensory, reflexes exams all intact. Patient ambulatory without issue. Differential includes chills, functional seizure, metabolic disturbance, endocrinologic disturbance, sepsis, malignant arrhythmia, among others. I feel this is much less likely to be epileptic seizure given history, exam, no loss of consciousness or bowel or bladder incontinence in conjunction with bilateral symptoms lasting 10 to 15 minutes. Patient placed on continuous cardiac monitoring and continuous pulse ox with initial blood pressure 96/68, heart rate 87, saturation 97% on room air. [Independent interpretation of EKG shows] sinus rhythm 86 beats a minute without ST or T wave changes concern for acute ischemia. Intermittent PVCs. AR 145, QRS 100, QTc 425. Patient was given vancomycin, cefepime, sepsis fluid bolus for symptomatic management[ and correction of underlying abnormalities]. Workup independently interpreted and significant for leukocytosis with neutrophilia, VBG with pH 7.47, CO2 35, oxygen 51, bicarb normal as well, lactate 3.2. Patient's potassium low at 2.6, this was repleted IV and p.o. Patient's creatinine 1.5 with CRISTHIAN. Urinalysis was concern for UTI with blood, protein, leukocyte esterase, nitrates. Hospital medicine was contacted and case was discussed at length to have patient admitted out of concern for urosepsis. Hospital medicine recommended CT abdomen and pelvis out of concern for potential obstructing stone, given patient was just admitted for E. coli bacteremia in the last few weeks. CT abdomen and pelvis was ordered. Patient has 11 mm obstructing stone in the left ureter on independent interpretation of imaging. See radiology read for full review of final results. Urology at [facility] was contacted and case was discussed at length, patient to be transferred for further definitive management of obstructing left ureterolithiasis in the setting of urosepsis. Because patient high risk for clinical decompensation if discharged, deemed appropriate for transfer and inpatient admission. Results were relayed to patient who voiced understanding and patient was agreeable to transfer, inpatient admission, and management. Patient was graciously accepted and transferred to [facility] for further definitive management, under Dr. Roberto. Patient Services Manager disclaimer Much of this encounter note is an electronic credit analysis manager spoken language to printed text. Electronic credit analysis manager of the spoken language may permit errors. Although I have reviewed the note, some errors may still exist. Critical Care Critical Care Time Critical Care Time: Yes (sepsis) Attestation: On 12/08/23, the high probability of a clinically significant, sudden or life threatening deterioration of the following system(s) required my full and direct attention, intervention and personal management. The time I documented below is in addition to time spent performing reported procedures but includes the following listed in this critical care notation. Total Time Total Critical Care Time: 60
[2023-12-08 11:03] LABS: Alanine Aminotransferase 39 U/L (12-78); Albumin Level 2.8 g/dl (3.5-5.0); Albumin/Globulin Ratio 0.8 (1.1-1.8); Alkaline Phosphatase 259 U/L (38-126); Anion Gap 9.6 mEq/L (5-15); Aspartate Amino Transferase 46 U/L (14-36); Blood Urea Nitrogen 40 mg/dl (7-17); Calcium 8.4 mg/dl (8.4-10.2); Carbon Dioxide 26 mmol/L (22.0-30.0); Chloride 101 mmol/L (98-107); Creatinine Clearance Estimated 56 mL/min (50-200); Estimated Glomerular Filt Rate 36 ml/min (>60); GFR (African American) 43 ML/MIN (>60); Globulin 3.5 g/dL (1.3-3.2); Glucose 136 mg/dl (74-100); Magnesium 1.8 mg/dl (1.6-2.3); Sodium 134 mmol/L (136-145); Total Protein,Serum 6.3 g/dl (6.3-8.2)
[2023-12-08 11:04] LABS: MANUAL DIFFERENTIAL MANUAL DIFFERENTIAL (MANUAL DIFF)
--- NOTE | 2023-12-08 11:11 | ECG_ITS ---
APPROVED REPORT Exam: Resting ECG HR:86 bpm ECG Measurements Heart Rate 86 AXES TX 145 P 47 QRSd 100 QRS 19 QT 382 T 33 QTc 425 Conclusion Sinus rhythm with PVCs Electronically signed by : RADHA STARK, 12/08/2023 16:01:09
[2023-12-08 11:20] LABS: T4 (Thyroxine) 9.4 ug/dl (5.53-11.0)
[2023-12-08 11:32] LABS: Troponin I < 0.01 ng/ml (0.00-0.034)
[2023-12-08 11:33] LABS: Potassium 2.6 mmoL/L (3.5-5.1)
--- NOTE | 2023-12-08 11:33 | PC.NURSE ---
Notified Dr. Cordova of critical K 2.6
[2023-12-08 11:34] LABS: Thyroid Stimulating Hormone 2.05 uIU/mL (0.465-4.68)
[2023-12-08] MEDS: LACTATED RINGERS 1320 ML IV (11:39)
[2023-12-08] MEDS: POTASSIUM CHLORIDE 20MEQ TAB 60 MEQ PO (11:40)
[2023-12-08 11:42] LABS: Microscopic, Urine URINE MICROSCOPIC (MICROSCOPIC)
[2023-12-08 11:50] LABS: Appearance,Urine CLOUDY (Clear); Bilirubin,Urine Negative (Negative); Blood, Urine 2+ (Negative); Color,Urine YELLOW (Yellow); Glucose,Urine (UA) Negative (Negative); Ketones,Urine Negative (Negative); Leukocyte Esterase,Urine 3+ (Negative); Nitrate,Urine POSITIVE (Negative); Protein,Urine Negative (Negative)
[2023-12-08 11:53] LABS: Lymphocytes % 3 % (10-50); Neutrophils % 97 % (42-76); Platelet Estimate Normal; RBC Morphology Normal; Total Cells Counted 100
[2023-12-08] MEDS: CEFEPIME HCL 2 GM in 0.9 % SODIUM CHLORIDE 100 ML IV (12:00)
[2023-12-08] MEDS: KCl 10mEq/100ml 100 ML 100 MEQ IV ×3 (12:14→14:48)
--- NOTE | 2023-12-08 12:15 | PC.NURSE ---
PT UPDATED ON POC, CALL LIGHT WITHIN REACH
[2023-12-08 12:19] LABS: Bacteria,Urine 2+ /lpf; Squamous Epithelial Cell,Urine Occasional #/hpf (0-5); WBC,Urine TNTC #/hpf (0-3)
--- NOTE | 2023-12-08 12:59 | PC.NURSE ---
Pt provided with lunch tray
--- NOTE | 2023-12-08 13:10 | PC.NURSE ---
Waiting health and wellness sales consultant back from Dr. Wilkerson about pt admission
--- NOTE | 2023-12-08 13:57 | CT_ITS ---
FINAL REPORT TECHNIQUE: After the administration of oral and intravenous contrast, axial images were obtained through the abdomen and pelvis by computed tomography. The study was performed with techniques to keep radiation dose as low as reasonably achievable, (ALARA). Individual dose reduction techniques using automated exposure control or adjustment of mA and/or kV according to the patient's size were employed. CLINICAL HISTORY: sepsis, hematuria FINDINGS: Abdomen: There is dense bibasilar atelectasis. There are calcified subcarinal and left hilar lymph nodes. The liver parenchyma is homogeneous. Multiple gallstones are seen within the gallbladder. There is a tiny nonobstructing stone in the right renal collecting system measuring 2 mm. There is moderate left hydronephrosis and proximal hydroureter. There is a 1.5 cm stone in the proximal left ureter. Images seen on image 41 of series 1001. The remaining solid abdominal organs are unremarkable. There is no free fluid or adenopathy. Pelvis: The appendix is unremarkable. There are scattered diverticula throughout the descending and sigmoid colon. Uterus is present and lies eccentric to the right. The urinary bladder is unremarkable. There is no free fluid or adenopathy. There is streak artifact from posterior fusion hardware bridging L4-5. IMPRESSION: Obstructing stone in the proximal left ureter. Cholelithiasis. Reviewed, Interpreted and Dictated by Victor Hugo Hudson MD Transcribed by Maritza Neil Authenticated and [facility]
[2023-12-08] MEDS: VANCOMYCIN/WATER FOR INJ (PEG) 1.5 GM/300 ML PIGGYBACK IV (14:24)
--- NOTE | 2023-12-08 14:26 | PC.NURSE ---
PT TO CT
[2023-12-08] MEDS: IOPAMIDOL-370 (76%);100ML BOTTLE 75 ML IV (14:31)
[2023-12-08] MEDS: SODIUM CHLORIDE 0.9% 10ML SYR (RAD ONLY) 10 ML IV (14:31)
--- NOTE | 2023-12-08 14:33 | PC.NURSE ---
Pt returned from CT
[2023-12-08] MEDS: VANCOMYCIN CONSULT REQUEST 1 EACH NOTAPPLIC (14:47)
--- NOTE | 2023-12-08 14:48 | PC.NURSE ---
Called [facility] about a possible transfer per request of Dr Cordova for urology. Waiting for callback. CR
[2023-12-08 14:57] LABS: Reflex Lactic Add Lactic Reflex
--- NOTE | 2023-12-08 15:10 | PC.NURSE ---
DR STARK SPEAKING WITH DR FOLEY
[2023-12-08 15:30] LABS: Lactic Acid Follow Up (RFLX 1) 2.2 mmol/L (0.7-2.1)
--- NOTE | 2023-12-08 15:30 | PC.NURSE ---
DR YODER SPEAKING WITH HOSPITALIST AT [facility]
--- NOTE | 2023-12-08 16:03 | PC.NURSE ---
REPORT CALLED TO [facility]
[2023-12-08] MEDS: ACETAMINOPHEN 500MG TAB 1000 MG PO (17:05)
[2023-12-08] MEDS: IBUPROFEN 400 MG TABLET 800 MG PO (17:05)
[2023-12-08 17:16] LABS: Reflex Lactic (2 hrs) Add Lactic Reflex
--- NOTE | 2023-12-08 17:19 | PC.NURSE ---
report given to ems
--- NOTE | 2023-12-09 10:30 | PC.NURSE ---
blood cultures report received from lab. aerobic bottle grew klebsella pneumonia.
--- NOTE | 2023-12-09 10:43 | PC.NURSE ---
faxed prelim to [facility] where pt was transferred too. fax number [phone]
--- NOTE | 2023-12-12 17:36 | PC.NURSE ---
URINE CULTURE FAXED TO [facility]
== END 2023-12-08 17:25 | disposition short-term general hospital (02) ==
PROVIDERS: Emergency Medicine; Emergency Provider Emergency Medicine; PCP Family Medicine
DX: A41.9 Sepsis, unspecified organism (principal); B96.1 Klebsiella pneumoniae [K. pneumoniae] as the cause of diseases classified elsewhere; R74.02 Elevation of levels of lactic acid dehydrogenase [LDH]; N13.0 Hydronephrosis with ureteropelvic junction obstruction; N13.4 Hydroureter; E87.6 Hypokalemia; K80.80 Other cholelithiasis without obstruction; J44.9 Chronic obstructive pulmonary disease, unspecified; I10 Essential (primary) hypertension; Z87.891 Personal history of nicotine dependence
CPT/HCPCS: 71045; 74177; 80050; 80053; 81001; 82803; 83605; 83735; 84436; 84443; 84484; 85007; 85025; 87040; 87077; 87086; 87088; 87186; 93005; 96365; 96366; 99291; J3480; J7120; Q9967

== ENCOUNTER 2025-01-07 10:05 | Outpatient (CLI) | payer MEDICARE, SELFPAY ==
--- OUTSIDE RECORDS SUMMARY | 2024-12-04 12:00 | XMS_ITS | Encounter Summary ---
Author Organization [facility] yste Address [address] [place] [address] Care Team Providers Care Paper Plate Machine Tender Name Role Phone Callum Leiva MD Primary Care Provider Reason for Referral * Diagnostic Imaging (Routine) - Closed Specialty Diagnoses / Procedures Referred By Padmini lopes Referred To Contact Radiology Diagnoses Acute left ankle pain Procedures XR Ankle 2 View Left Radha Porter PA-C [address] [facility] [place] [address] Phone: tel: fax: Referral ID Status Reason Start Date Expiration Date Visits Re quested Visits Authorized [id number] Closed 12/04/2024 03/05/2026 1 1 Reason for Visit * Reason Comments Ankle Pain R ankle swollen and in pain x last night while walking around. No fall/event leading to injury. Joint Swelling Encounter Details Date Type Department Care Team (Late st Contact Info) Description 12/04/2024 12:00 PM EDT Office Visit [facility] [address] [place] [address] Radha Porter PA-C [address] [place] [address] Acute left ankle pain (Primary Dx) Social History Tobacco Use Types Packs/Day Years Used Date Smoking Tobacco: Former Cigarettes 2.5 40.4 0 05/08/1983 - 10/13/2023 Passive Smoke Exposure: Past Smokeless Tobacco: Never Tobacco Cessation:Counseling Given: Not Answered Alcohol Use Standard Drinks/Week Comments Never 0 (1 standard drink = 0.6 oz pur e alcohol) PHQ-2 Answer Date Recorded Retired PHQ-9: Brief Depression Severity Measure Score 11 10/28/2022 PHQ-2 Answer Date Recorded Patient Health Questionnaire-2 Score 1 04/12/2024 Comments Unknown Sex and Gender Information Value Date Recorded Sex Assigned at Female 03/08/2023 4:00 PM EDT Legal Sex Female 12:18 PM EDT Gender Identity Female 03/08/2023 4:00 PM EDT Sexual Orientation Straight 03/08/2023 4: 00 PM EDT documented as of this encounter Last Filed Vital Signs Vital Sign Reading Time Taken Comments Blood Pressure 132/80 12/04/2024 12:16 PM EDT Pulse 84 12/04/2024 12:16 PM EDT Temperature 37.2 C (98.9 F) 12/04/2024 12:16 PM EDT Respiratory Rate 18 12/04/2024 12:16 PM EDT Oxygen Saturation 99% 12/04/2024 12:16 PM EDT Inhaled Oxygen Concentration - - Weight 89.4 kg (197 lb) 12/04/2024 12:16 PM EDT Height - - Body Mass Index 34.9 09/26/2024 11:17 AM EDT documented in this encounter Progress Notes * Radha Porter PA-C - 12/04/2024 1:07 PM EDTAssociated Problem(s): Acute left ankle pain Complete X-ray Avoid activity that worsens pain Patient advised to contact orthopedics (already established) Can take OTC medication as needed for symptomatic relief Apply ice if able Return if needed * Radha Porter PA-C - 12/04/2024 12:00 PM EDT Images from the original note were not included. Office Note Name: Yaneth Dunbar : 1965 Chief Complaint Ankle Pain (R ankle swollen and in pain x last night while walking around. No fall/event leading toinjury.) and Joint Swelling Subjective History of Present Illness: Yaneth Dunbar is a 58 y.o. female who presents today with complaints of left ankle pain and swelling. Admits she was walking along her driveway lasy night and felt a etienne of pain when she steppeddown onto her left foot. Elavated her foot last night and put on topical medication without relief.This morning noticed a worsening of swelling and severe pain with palpation. Denies significant pain with weight bearing, bruising, weakness, and numbness and tingling. Has tried ibuprofen without relief. Could not tolerate ice or heat. No other questions or concerns. Past Medical History: Past Medical History: Diagnosis Date Abnormal uterine bleeding s/p unsuccessful attempt at uterine ablation approximately [address] Sanderson Allergic 1980 Penicillin, sulfa, Morphine Cancer Melanoma surgery Cholelithiasis Depression 2010 Diverticulosis HL (hearing loss) 2024 Have hearing aids Inflammatory bowel disease Kidney stone Low back pain 2009 Obesity Pneumonia 2023 Hospitalized Tobacco abuse Urinary tract infection 2023 Past Surgical History: Past Surgical History: Procedure Laterality Date ADENOIDECTOMY 1980 BACK SURGERY CERVICAL FUSION SECTION 1994 FOOT SURGERY 01/2019 Plantar Fasciitis release KIDNEY STONE SURGERY TONSILLECTOMY Immunizations: Immunization History Administered Date(s) Administered COVID-19 (PFIZER) Purple Cap Monovalent 02/25/2021, 03/18/2021 Hepatitis B Adult/Adolescent IM 12/09/2010, 01/20/2011, 07/07/2011 MMR 12/09/2010 Tdap 12/09/2010 Medications: Current Outpatient Medications: albuterol sulfate HFA 108 (90 Base) MCG/ACT inhaler, INHALE 2 PUFFS EVERY 4 HOURS NEEDED FOR WHEEZING, Disp: 8.5 g, Rfl: 2 buPROPion SR (WELLBUTRIN SR) 150 MG 12 hr tablet, Take 1 tablet by mouth 2 (Two) Times a Day., Disp: 180 tablet, Rfl: 1 ezetimibe (Zetia) 10 MG tablet, Take 1 tablet by mouth Daily., Disp: 90 tablet, Rfl: 1 furosemide (LASIX) 40 MG tablet, Take 1 tablet by mouth Daily As Needed (swelling)., Disp: 90 tablet, Rfl: 1 gabapentin (NEURONTIN) 400 MG capsule, TAKE 1 CAPSULE THREE TIMES DAILY, Disp: 270 capsule, Rfl: 0 glucose blood test strip, Check sugars daily, Disp: 50 each, Rfl: 5 ibuprofen (ADVIL,MOTRIN) 800 MG tablet, TAKE 1 TABLET BY MOUTH EVERY 8 (EIGHT) HOURS NEEDED FOR MILD PAIN, Disp: 90 tablet, Rfl: 11 Lancets 30G misc, Check sugars daily, Disp: 50 each, Rfl: 5 PARoxetine (PAXIL) 10 MG tablet, Take 1 tablet by mouth Every Morning., Disp: 90 tablet, Rfl: 1 rosuvastatin (Crestor) 10 MG tablet, Take 1 tablet by mouth Daily., Disp: 90 tablet, Rfl: 1 aspirin 81 MG EC tablet, Take 1 tablet by mouth Daily. (Patient not taking: Reported on 12/04/2024),Disp: , Rfl: ketoconazole (NIZORAL) 2 % cream, Dr. Yohannes Guzman (Patient not taking: Reported on 12/04/2024), Disp: , Rfl: lidocaine-prilocaine (EMLA) 2.5-2.5 % cream, , Disp: , Rfl: Allergies: Allergies Allergen Reactions Morphine And Codeine Hives Penicillins Shortness Of Breath Sulfa Antibiotics GI Intolerance Bactrim has been ok Fluzone [Influenza Virus Vaccine] Swelling Chantix [Varenicline Tartrate] Rash Family History: Family History Problem Relation Age of Onset Hyperlipidemia Mother Heart disease Mother Heart Attack Diabetes Mother Lung cancer Father 2014, mets to brain Cancer Father /Lung Cancer Heart disease Brother Diabetes Brother Cancer Maternal Grandfather COPD Maternal Grandfather Diabetes Paternal Grandfather Social History: Social History Socioeconomic History Marital status: Tobacco Use Smoking status: Former Current packs/day: 0.00 Average packs/day: 2.5 packs/day for 40.4 years (100.2 ttl pk-yrs) Types: Cigarettes Start date: 05/08/1983 Quit date: 10/13/2023 Years since quittin.1 Passive exposure: Past Smokeless tobacco: Never Vaping Use Vaping status: Never Used Substance and Sexual Activity Alcohol use: Never Drug use: No Sexual activity: Not Currently Partners: Male control/protection: Post-menopausal, None Objective Vital Signs BP 132/80 Pulse 84 Temp 98.9 ??F (37.2 ??C) Resp 18 Wt 89.4 kg (197 lb) SpO2 99% BMI 34.90 kg/m?? Estimated body mass index is 34.9 kg/m?? as calculated from the following: Height as of 09/26/24: 160 cm (63 ). Weight as of this encounter: 89.4 kg (197 lb). Physical Exam Vitals and nursing note reviewed. Constitutional: Appearance: Normal appearance. HENT: Head: Normocephalic and atraumatic. Cardiovascular: Rate and Rhythm: Normal rate and regular rhythm. Heart sounds: No murmur heard. No friction rub. No gallop. Pulmonary: Effort: Pulmonary effort is normal. Breath sounds: Normal breath sounds. No wheezing, rhonchi or rales. Musculoskeletal: Left ankle: Swelling present. Tenderness (severe) present. Left Achilles Tendon: No tenderness. Legs: Skin: General: Skin is warm and dry. Neurological: General: No focal deficit present. Mental Status: She is alert and oriented to person, place, and time. Psychiatric: Mood and Affect: Mood normal. Behavior: Behavior normal. Assessment and Plan Diagnoses and all orders for this visit: 1. Acute left ankle pain (Primary) Assessment & Plan: Complete X-ray Avoid activity that worsens pain Patient advised to contact orthopedics (already established) Can take OTC medication as needed for symptomatic relief Apply ice if able Return if needed Orders: - XR Ankle 2 View Left; Future Follow Up No follow-ups on file. MAXIMILIAN Busby [facility] [address] [facility] [phone] documented in this encounter Plan of Treatment Upcoming Encounters Date Type Department Care Team (Late st Contact Info) Description 02/04/2025 11:00 AM EDT Office Visit [facility] [address] [place] [address] Callum Leiva MD [address] [place] [address] documented as of this encounter Results * XR Ankle 2 View Left (12/04/2024 12:52 PM EDT) Anatomical Region Laterality Modality Lower Extremities, Ankle Left Radiogr aphic Imaging 12/11/2024 12:2 2 PM EDT Impressions 12/11/2024 12:24 PM EDT Impression: 1. No acute osseous abnormality. 2. Nonspecific soft tissue swelling at the site of patient's pain at the medial anterior ankle. Electronically Signed: Truman Lynn MD 12/11/2024 12:24 PM EDT Workstation ID: [id number] Narrative 12/11/2024 12:24 PM EDT XR ANKLE 2 VW LEFT Date of Exam: 12/04/2024 12:48 PM EDT Indication: Left ankle pain, injury Comparison: None available. Findings: Medial malleolus and lateral malleolus intact. Ankle mortise is maintained. The talar dome is intact. There is no fracture or dislocation. Palpable site was marked with a radiodense marker with soft tissue swelling overlying the medial anterior ankle. Procedure Note Truman Lynn MD - 12/11/2024 XR ANKLE 2 VW LEFT Date of Exam: 12/04/2024 12:48 PM EDT Indication: Left ankle pain, injury Comparison: None available. Findings: Medial malleolus and lateral malleolus intact. Ankle mortise ismaintained. The talar dome is intact. There is no fracture or dislocation.Palpable site was marked with a radiodense marker with soft tissueswelling overlying the medial anterior ankle. IMPRESSION: Impression: 1. No acute osseous abnormality. 2. Nonspecific soft tissue swelling at the site of patient's pain at themedial anterior ankle. Electronically Signed: Truman Lynn MD 12/11/2024 12:24 PM EDT Workstation ID: [id number] us Radha Porter PA-C IMG DIAGNOSTIC IMAGING ORDER JOSELYN Final Result documented in this encounter Visit Diagnoses Diagnosis Acute left ankle pain- Primary Acute left ankle pain documented in this encounter Care Teams Paper Plate Machine Tender Relationship Specialty Start Date End Date Callum Leiva MD [address] [place] [address] PCP - General Family Medicine 10/22/19 documented as of this encounter
--- OUTSIDE RECORDS SUMMARY | 2024-12-04 12:45 | XMS_ITS | Encounter Summary ---
Author Organization [facility] ystem Address [address] [place] [address] Care Team Providers Care Surveillance Camera Technician Name Role Phone Callum Leiva MD Primary Care Provider [phone] Reason for Referral * Diagnostic Imaging (Routine) - Closed Specialty Diagnoses / Procedures Referred By Contac t Referred To Contact Radiology Diagnoses Acute left ankle pain Procedures XR Ankle 2 View Left Radha Porter PA-C [address] [place] [address] Phone: tel: fax: Referral ID Status Reason Start Date Expiration Date Visits Re quested Visits Authorized [id number] Closed 12/04/2024 03/05/2026 1 1 Reason for Visit * Diagnostic Imaging (Routine) - Closed Specialty Diagnoses / Procedures Referred By Contac t Referred To Contact Radiology Diagnoses Acute left ankle pain Procedures XR Ankle 2 View Left Radha Porter PA-C [address] [place] [address] Phone: tel: fax: Referral ID Status Reason Start Date Expiration Date Visits Re quested Visits Authorized [id number] Closed 12/04/2024 03/05/2026 1 1 Encounter Details Date Type Department Care Team (Latest Contact Info) Description 12/04/2024 12:45 PM EDT - 12/04/2024 11:59 PM EDT Hospital Encounter [facility] [address] [place] [address] Radha Porter, MAXIMILIAN [address] [facility] [place] [address] Acute left ankle pain Discharge Disposition: Home or Self Care Social History Tobacco Use Types Packs/Day Years Used Date Smoking Tobacco: Former Cigarettes 2.5 40.4 0 05/08/1983 - 10/13/2023 Passive Smoke Exposure: Past Smokeless Tobacco: Never Alcohol Use Standard Drinks/Week Comments Never 0 [...] PM EDT documented as of this encounter Medications at Time of Discharge albuterol sulfate HFA 108 (90 Base) MCG/ACT inhalerIndications:P ersistent cough for 3 weeks or longer INHALE 2 PUFFS EVERY 4 HOURS NEEDED FOR WHEEZING 8.5 g 2 11/09/2022 aspirin 81 MG EC tablet Take 1 tablet by mouth Daily. 09/29/2023 furosemide (LASIX) 40 MG tabletIndications:Ed carolyn, unspecified type Take 1 tablet by mouth Daily As Needed (swelling). 90 tablet 1 07/08/2024 gabapentin (NEURONTIN) 400 MG capsuleIndications:N europathic pain TAKE 1 CAPSULE THREE TIMES DAILY 270 capsule 09/24/2024 glucose blood test stripIndications:Typ e 2 diabetes mellitus without complication, without long-term current use of insulin Check sugars daily 50 each 5 01/04/2024 ibuprofen (ADVIL,MOTRIN) 800 MG tablet TAKE 1 TABLET BY MOUTH EVERY 8 (EIGHT) HOURS NEEDED FOR MILD PAIN 90 tablet 11 09/17/2024 ketoconazole (NIZORAL) 2 % cream Dr. Yohannes Guzman 10/20/2022 Lancets 30G miscIndications:Type 2 diabetes mellitus without complication, without long-term current use of insulin Check sugars daily 50 each 01/04/2024 lidocaine-prilocaine (EMLA) 2.5-2.5 % cream 03/18/2021 PARoxetine (PAXIL) 10 MG tabletIndications:De pressed mood Take 1 tablet by mouth Every Morning. 90 tablet 1 07/08/2024 rosuvastatin (Crestor) 10 MG tabletIndications:Mi xed hyperlipidemia Take 1 tablet by mouth Daily. 90 tablet 1 09/27/2024 buPROPion SR (WELLBUTRIN SR) 150 MG 12 hr tabletIndications:De pressed mood Take 1 tablet by mouth 2 (Two) Times a Day. 180 tablet 1 07/08/2024 ezetimibe (Zetia) 10 MG tabletIndications:Mi xed hyperlipidemia Take 1 tablet by mouth Daily. 90 tablet 1 07/08/2024 5 documented as of this encounter Plan of Treatment Upcoming Encounters Date Type Department Care Team (Late st Contact Info) Description 02/04/2025 11:00 AM EDT Office Visit [facility] [address] [place] [address] Callum Leiva MD [address] [place] [address] documented as of this encounter Procedures Procedure Name Priority Date/Time Associated Diagnosis Comments XR ANKLE 2 VW LEFT Routine 12/04/2024 12 :52 PM EDT Acute left ankle pain documented in this encounter Results * XR Ankle 2 [...] MD 12/11/2024 12:24 PM EDT Workstation ID: [id number] Narrative 12/11/2024 12:24 PM EDT XR ANKLE [...] MD 12/11/2024 12:24 PM EDT Workstation ID: [id number] Radha Porter PA-C IMJb DIAGNOSTIC IMAGING ORDER JOSELYN Final Result documented in this encounter Visit Diagnoses Diagnosis Acute left ankle pain documented in this encounter Care Teams Surveillance Camera Technician Relationship Specialty Start Date End Date Callum Leiva MD [facility] [place] [address] PCP - General Family Medicine 10/22/19 documented as of this encounter
--- OUTSIDE RECORDS SUMMARY | 2024-12-13 12:15 | XMS_ITS | Encounter Summary ---
Author Organization [facility] yste Address [address] [place] [address] Care Team Providers Care Recoil Spring Winder Name Role Phone Callum Leiva MD Primary Care Provider [phone] Reason for Referral * Diagnostic Imaging (Routine) - Closed Specialty Diagnoses / Procedures Referred By Padmini t Referred To Contact Diagnoses Mass of left ankle Procedures US Nonvascular Extremity Limited Inderjit Mireles MD [address] [place] [address] Phone: tel: fax: [address] [address] Phone: tel: Referral ID Status Reason Start Date Expiration Date Visits Re quested Visits Authorized [id number] Closed 2024 03/14/2026 1 1 Reason for Visit * Reason Comments FU on L ankle pain and swelling Left hand 1st digit / pain Encounter Details Date Type Department Care Team (Late st Contact Info) Description 2024 12:15 PM EDT Office Visit [facility] [address] [place] [address] Inderjit Mireles MD [address] [place] [address] Mass of left ankle (Primary Dx) Social History Tobacco Use Types [...] Sign Reading Time Taken Comments Blood Pressure 140/70 2024 12:06 PM EDT Pulse 88 2024 12:06 PM EDT Temperature 36.8 C (98.2 F) 2024 12:06 PM EDT Respiratory Rate 20 2024 12:06 PM EDT Oxygen Saturation 99% 2024 12:06 PM EDT Inhaled Oxygen Concentration - - Weight 88.9 kg (196 lb) 2024 12:06 PM EDT Height 160 cm (5' 3 ) 2024 12:06 PM EDT Body Mass Index 34.72 2024 12:06 PM EDT documented in this encounter Progress Notes * Inderjit Mireles MD - 2024 12:15 PM EDT Chief Complaint Patient presents with FU on L ankle pain and swelling Left hand 1st digit / pain Subjective Yaneth Arabella Bettina is a 59 y.o. who presents for persistence of a mass on the anterior left lower leg just above the ankle. Patient was seen 9 days ago in the office for same complaint. There has beenno change and mass remains uncomfortable with ambulation. Objective Vital Signs: BP 140/70 Pulse 88 Temp 98.2 ??F (36.8 ??C) Resp 20 Ht 160 cm (63 ) Wt 88.9 kg (196 lb) SpO2 99% BMI 34.72 kg/m?? Physical Exam Vitals reviewed. Constitutional: Appearance: Normal appearance. Musculoskeletal: Comments: Patient has a fluctuant mass in the left lower leg just above the ankle. This seems to beencapsulated below the skin. While patient believes there is a punctum from an insect bite or stingI am less confident in the evidence of a punctum. Lesion is not tender to touch. Overlying skin it is not red Neurological: Mental Status: She is alert. Result Review Assessment and Plan Diagnoses and all orders for this visit: 1. Mass of left ankle (Primary) - US Nonvascular Extremity Limited; Future Plan: I believe patient either has an encapsulated cyst or a localized area of swelling. Ultrasoundwill be performed to assess nature of the lesion. Surgical intervention will likely be required Follow Up No follow-ups on file. Patient was given instructions and counseling regarding her condition or for health maintenance advice. Please see specific information pulled into the AVS if appropriate. documented in this encounter Plan of Treatment Upcoming Encounters Date Type Department Care Team (Late st Contact Info) Description 02/04/2025 11:00 AM EDT Office Visit [facility] [address] [address] Callum Leiva MD [address] [place] [address] documented as of this encounter Results * US Nonvascular Extremity Limited (12/24/2024) Anatomical Region Laterality Modality Upper Extremities, Lower Extremities Ultrasound us Inderjit Mireles MD IMG US ORDERABLES Final Result documented in this encounter Visit Diagnoses Diagnosis Mass of left ankle- Primary documented in this encounter Care Teams Recoil Spring Winder Relationship Specialty Start Date End Date Callum Leiva MD [address] [facility] [place] [address] PCP - General Family Medicine 10/22/19 documented as of this encounter
[2025-01-07 10:16] VITALS: BMI 34.3
--- OUTSIDE RECORDS SUMMARY | 2025-01-07 10:48 | XMS_ITS | Encounter Summary ---
Author Organization [facility] ystem Address [address] [place] [address] Care Team Providers Care Hoof Trimmer Name Role Phone Callum Leiva MD Primary Care Provider [phone] Encounter Details Date Type Department Care Team (Late st Contact Info) Description 09/27/2024 Results Follow-Up [facility] [address] [facility] [place] [address] Callum Leiva MD [address] [place] [address] Social History Tobacco Use Types Packs/Day Years [...] PM EDT documented as of this encounter Plan of Treatment Upcoming Encounters Date Type Department Care Team (Late st Contact Info) Description 02/04/2025 11:00 AM EDT Office Visit [facility] [address] [place] [address] Callum Leiva MD [address] [place] [address] documented as of this encounter Visit Diagnoses Diagnosis Mixed hyperlipidemia documented in this encounter Care Teams Hoof Trimmer Relationship Specialty Start Date End Date Callum Leiva MD [address] [address] PCP - General Family Medicine 10/22/19 documented as of this encounter
--- OUTSIDE RECORDS SUMMARY | 2025-01-07 10:48 | XMS_ITS | Encounter Summary ---
Author Organization [facility] ystem Address [address] [place] [address] Care Team Providers Care Crew Leader Name Role Phone Callum Leiva MD Primary Care Provider [phone] Encounter Details Date Type Department Care Team (Late st Contact Info) Description 07/31/2024 Results Follow-Up [facility] [address] [place] [address] Inderjit Mireles MD [address] [place] [address] Social History Tobacco Use Types Packs/Day Years Used Date Smoking Tobacco: Former Cigarettes 2.5 40.4 0 05/08/1983 - 10/13/2023 Passive Smoke Exposure: Past Smokeless Tobacco: Never Alcohol Use Standard Drinks/Week Comments Not Currently 0 (1 standard drink = 0.6 oz [...] Description 02/04/2025 11:00 AM EDT Office Visit [facility] [address] [place] [address] Callum Leiva MD [address] [place] [address] documented as of this encounter Visit Diagnoses Not on filedocumented in this encounter Care Teams Crew Leader Relationship Specialty Start Date End Date Callum Leiva MD [address] [place] [address] PCP - General Family Medicine 10/22/19 documented as of this encounter
--- OUTSIDE RECORDS SUMMARY | 2025-01-07 10:48 | XMS_ITS | Encounter Summary ---
Author Organization [facility] yste Address [address] [place] [address] Care Team Providers Care Hydroelectric Operator Name Role Phone Callum Leiva MD Primary Care Provider [phone] Reason for Referral * Consultation (Routine) - Closed Specialty Diagnoses / Procedures Referred By Padmini lopes Referred To Contact Podiatry Diagnoses Mass of left ankle Procedures [facility] OFFICE/OUTPATIENT NEW MODERATE MDM 45 MINUTES Inderjit Mrieles MD [address] [place] [address] Phone: tel: fax: Chai Rincon DPM [address] [place] [address] Phone: tel: fax: Referral ID Status Reason Start Date Expiration Date V isits Requested Visits Authorized Closed Specialty Services Required 12/26/2024 03/27/2026 1 1 Encounter Details Date Type Department Care Team (Late st Contact Info) Description 12/26/2024 Results Follow-Up [facility] [address] [place], [place] [address] Inderjit Mireles MD [address] [place] [address] Social History Tobacco Use Types Packs/Day [...] Description 02/04/2025 11:00 AM EDT Office Visit [facility] [address] [place] [address] Callum Leiva MD [address] [place] [address] documented as of this encounter Visit Diagnoses Diagnosis Mass of left ankle- Primary documented in this encounter Care Teams Hydroelectric Operator Relationship Specialty Start Date End Date Callum Leiva MD [address] [place] [address] PCP - General Family Medicine 10/22/19 documented as of this encounter
--- OUTSIDE RECORDS SUMMARY | 2025-01-07 10:48 | XMS_ITS | Encounter Summary ---
[facility] Address [address] [place] [address] Care Team Providers Care Waitstaff Name Role Phone Callum Leiva MD Primary Care Provider [phone] Encounter Details Date Type Department Care Team (Latest Contact Info) Description 12/04/2024 Travel Social History Tobacco Use Types Packs/Day Years [...] Encounters Date Type Department Care Team (Late Contact Info) Description 02/04/2025 11:00 AM EDT Office Visit [facility] [address] [place] [address] Callum Leiva MD [address] [place] [address] documented as of this encounter Visit Diagnoses Not on filedocumented in this encounter Care Teams Waitstaff Relationship Specialty Start Date End Date Callum Leiva MD [address] [place] [address] PCP - General Family Medicine 10/22/19 documented as of this encounter
--- OUTSIDE RECORDS SUMMARY | 2025-01-07 10:48 | XMS_ITS | Encounter Summary ---
Author Organization [facility] ystem Address [address] [place] [address] Care Team Providers Care Terrazzo Polisher Helper Name Role Phone Callum Leiva MD Primary Care Provider [phone] Encounter Details Date Type Department Care Team (Late st Contact Info) Description 08/16/2024 Results Follow-Up [facility] [address] [facility] [place] [address] Callum Leiva MD [address] [place] [address] Social History Tobacco Use Types [...] 11:00 AM EDT Office Visit [facility] [address] [place] [address] Callum Leiva MD [address] [place] [address] documented as of this encounter Visit Diagnoses Not on filedocumented in this encounter Care Teams Terrazzo Polisher Helper Relationship Specialty Start Date End Date Callum Leiva MD [address] [place] [address] PCP - General Family Medicine 10/22/19 documented as of this encounter
--- OUTSIDE RECORDS SUMMARY | 2025-01-07 10:49 | XMS_ITS | Encounter Summary ---
Author Organization [facility] ystem Address [address] [place] [address] Care Team Providers Care Boat Deckhand Name Role Phone Callum Leiva MD Primary Care Provider [phone] Encounter Details Date Type Department Care Team (Late st Contact Info) Description 12/11/2024 Results Follow-Up [facility] [address] [place] [address] Radha Porter, PA-C [address] [place] [address] Social History Tobacco Use Types [...] Description 02/04/2025 11:00 AM EDT Office Visit [facility] [address] [address] Callum Leiva MD [address] [place] [address] documented as of this encounter Visit Diagnoses Not on filedocumented in this encounter Care Teams Boat Deckhand Relationship Specialty Start Date End Date Callum Leiva MD [address] [place] [address] PCP - General Family Medicine 10/22/19 documented as of this encounter
--- OUTSIDE RECORDS SUMMARY | 2025-01-07 10:49 | XMS_ITS | Encounter Summary ---
[facility] [address] [place] [address] Care Team Providers Care Cement Sprayer Helper Name Role Phone Callum Leiva MD Primary Care Provider [phone] Encounter Details Date Type Department Care Team (Latest Contact Info) Description 2024 Travel Social History Tobacco Use Types Packs/Day [...] Description 02/04/2025 11:00 AM EDT Office Visit [facility] [address] [place] [address] Callum Leiva MD [address] [place] [address] documented as of this encounter Visit Diagnoses Not on filedocumented in this encounter Care Teams Cement Sprayer Helper Relationship Specialty Start Date End Date Callum Leiva MD [address] [place] [address] PCP - General Family Medicine 10/22/19 documented as of this encounter
--- OUTSIDE RECORDS SUMMARY | 2025-01-07 10:49 | XMS_ITS | Encounter Summary ---
Author Organization [facility] ystem Address [address] [place] [address] Care Team Providers Care Bleacher Lard Name Role Phone Callum Leiva MD Primary Care Provider [phone] Reason for Visit * Reason Comments Med Refill Encounter Details Date Type Department Care Team (Late st Contact Info) Description 12/05/2024 Refill [facility] [address] [place] [address] Callum Leiva MD [address] [place], [place] [address] Mixed hyperlipidemia; Depressed mood Social History Tobacco Use Types Packs/Day Years [...] Description 02/04/2025 11:00 AM EDT Office Visit [facility] [address] [place] [address] Callum Leiva MD [address] [place] [address] documented as of this encounter Visit Diagnoses Diagnosis Mixed hyperlipidemia Depressed mood documented in this encounter Care Teams Bleacher Lard Relationship Specialty Start Date End Date Callum Leiva MD [address] [place] [address] PCP - General Family Medicine 10/22/19 documented as of this encounter
--- OUTSIDE RECORDS SUMMARY | 2025-01-07 10:49 | XMS_ITS | Encounter Summary ---
Author Organization [facility] ystem Address [address] [place] [address] Care Team Providers Care Slag Production Worker Name Role Phone Callum Leiva MD Primary Care Provider [phone] Reason for Visit * Reason Onset Date Comments ULTRASOUND REFERRAL 12/19/2024 Encounter Details Date Type Department Care Team (Late st Contact Info) Description 12/19/2024 Telephone [facility] [address] [facility] [place] [address] Callum Leiva MD [address] [place], [place] [id number] ULTRASOUND REFERRAL Social History Tobacco Use Types Packs/Day Years [...] PM EDT documented as of this encounter Miscellaneous Notes * Telephone Encounter - Dagmar Christina RegSched Rep - 12/19/2024 2:57 PM EDT SPOKE WITH PATIENT, WE ARE GOING TO SEND THE ORDER TO [facility]. I TOLD HER THEY SHOULD CALL HER BY TOMORROW TO HAVE HER SCHEDULED AND IF SHE DOESN'T HEAR ANYTHING TO SEND ME A MESSAGE OR GIVE ME A CALL. * Telephone Encounter - Viji Webster RegSched Rep - 12/19/2024 1:55 PM EDT Caller: Yaneth Dunbar Relationship: Self Best call back number: [phone] What is the best time to reach you: ANYTIME Who are you requesting to speak with (clinical staff, provider, specific staff member): CLINICAL STAFF What was the call regarding: PATIENT IS CALLING TO SPEAK WITH THE CLINICAL STAFF ABOUT THE ULTRASOUND REFERRAL. SHE SAYS THAT THE FIRST AVAILABILITY WAS 01/10. SHE SAYS THAT SHE WAS TOLD THAT THE ULTRASOUND WAS NOT MEDICALLY NECESSARY. THE PATIENT STATES THAT SHE IS IN SO MUCH PAIN THAT SHE CANNOT WALK NOR CAN SHE HAVE ANYTHING TOUCHING IT. Is it okay if the provider responds through MyChart: YES documented in this encounter Plan of Treatment Upcoming Encounters Date Type Department Care Team (Late st Contact Info) Description 02/04/2025 11:00 AM EDT Office Visit [facility] [address] [place] [address] Callum Leiva MD [address] [place] [address] documented as of this encounter Visit Diagnoses Not on filedocumented in this encounter Care Teams Slag Production Worker Relationship Specialty Start Date End Date Callum Leiva MD [address] [place] [address] PCP - General Family Medicine 10/22/19 documented as of this encounter
--- OUTSIDE RECORDS SUMMARY | 2025-01-07 10:49 | XMS_ITS | Clinical Summary ---
Author Organization [facility] yste Address [address] [place] [address] Care Team Providers Care Engineer Specialist Name Role Phone Callum Leiva MD Primary Care Provider Allergies Active Allergy Reactions Criticality Noted Date Comments Varenicline Tartrate Rash Low 10/22/2019 Influenza Virus Vaccine Swelling 03/13/2023 Morphine And Codeine Hives High 01/24/2016 Penicillins Shortness Of Breath High 01/24/2016 Sulfa Antibiotics GI Intolerance Medium 01/24/2016 Bactrim has been ok Medications lidocaine-prilocain e (EMLA) 2.5-2.5 % cream 1 Active ketoconazole (NIZORAL) 2 % cream Dr. Yohannes Guzman 3 Active albuterol sulfate HFA 108 (90 Base) MCG/ACT inhalerIndications: Persistent cough for 3 weeks or longer INHALE 2 PUFFS EVERY 4 HOURS NEEDED FOR WHEEZING 8.5 g 2 3 Active aspirin 81 MG EC tablet Take 1 tablet by mouth Daily. 4 Active glucose blood test stripIndications:Ty pe 2 diabetes mellitus without complication, without long-term current use of insulin Check sugars daily 50 each 5 4 Active Lancets 30G miscIndications:Typ e 2 diabetes mellitus without complication, without long-term current use of insulin Check sugars daily 50 each 5 4 Active furosemide (LASIX) 40 MG tabletIndications:E dylan, unspecified type Take 1 tablet by mouth Daily As Needed (swelling). 90 tablet 1 5 Active PARoxetine (PAXIL) 10 MG tabletIndications:D epressed mood Take 1 tablet by mouth Every Morning. 90 tablet 1 5 Active ibuprofen (ADVIL,MOTRIN) 800 MG tablet TAKE 1 TABLET BY MOUTH EVERY 8 (EIGHT) HOURS NEEDED FOR MILD PAIN 90 tablet 11 5 Active gabapentin (NEURONTIN) 400 MG capsuleIndications: Neuropathic pain TAKE 1 CAPSULE THREE TIMES DAILY 270 capsule 5 Active rosuvastatin (Crestor) 10 MG tabletIndications:M ixed hyperlipidemia Take 1 tablet by mouth Daily. 90 tablet 1 5 Active ezetimibe (ZETIA) 10 MG tabletIndications:M ixed hyperlipidemia TAKE 1 TABLET EVERY DAY 90 tablet 1 5 Active buPROPion SR (WELLBUTRIN SR) 150 MG 12 hr tabletIndications:D epressed mood TAKE 1 TABLET TWICE DAILY 180 tablet 1 5 Active Active Problems Problem Noted Date Diagnosed Date Acute left ankle pain 12/04/2024 Assessment & Plan (12/04/2024 1:07 PM EDT): Complete X-ray Avoid activity that worsens pain Patient advised to contact orthopedics (already established) Can take OTC medication as needed for symptomatic relief Apply ice if able Return if needed Microalbuminuria due to type 2 diabetes mellitus 03/26/2024 Mixed hyperlipidemia 03/26/2024 Type 2 diabetes mellitus wit hout complication, without long-term current use of insulin 10/03/2023 Neuropathic pain 10/22/2019 Overview (10/22/2019): Chronic Right Foot, post op. Disbaled Assessment & Plan (07/01/2022 11:20 AM EST): Patient has worsening of a chronic condition. Gabapentin will be increased to 600 mg 3 times daily. Patient will follow-up as scheduled in October with Dr. Leiva. Postmenopausal vaginal bleeding 01/24/2016 Colon polyps 02/20/1991 Overview (02/21/2016): Dr. Farfan did colonoscopy and found precancerous changes but has not followed up. She thinks was in the early Tobacco abuse Resolved Problems Problem Noted Date Diagnosed Date Resolved Date UTI (urinary tract infection) 02/22/2016 10/22/2019 Gastrointestinal hemorrhage associated with intestinal diverticulosis 02/21/2016 10/22/2019 Hypoglycemia 02/21/2016 10/22/2019 Left lower quadrant pain 02/21/2016 Nausea and vomiting 01/26/2016 10/22/19 20 Leukocytosis 01/25/2016 10/22/2019 Diverticulitis 01/24/2016 02/21/2016 Abdominal pain 01/24/2016 10/22/2019 Perforated diverticulum of large intestine 01/24/2016 10/22/2019 Encounters Date Type Department Care Team Description 12/26/2024 Results Follow-Up [facility] [address] [place] [address] Inderjit Mireles MD 12/19/2024 Telephone [facility] [address] [place] [address] Callum Leiva MD ULTRASOUND REFERRAL 2024 12:15 PM EDT Office Visit [facility] [address] [place] [address] Inderjit Mireles MD Mass of left ankle (Primary Dx) 2024 Travel 12/11/2024 Results Follow-Up [facility] [address] [place] [address] Radha Portre, PAByronC 12/05/2024 Refill [facility] [address] [place] [place] [address] Callum Leiva MD Mixed hyperlipidemia; Depressed mood 12/04/2024 12:45 PM EDT - 12/04/2024 11:59 PM EDT Hospital Encounter [facility] [place] [address] [place] [address] Radha Porter PA-C Acute left ankle pain Discharge Disposition: Home or Self Care 12/04/2024 12:00 PM EDT Office Visit [facility] [address] [place] [address] Radha Porter PA-C Acute left ankle pain (Primary Dx) 12/04/2024 Travel from Last 3 Months Immunizations Immunization Administration Dates Next Due COVID-19 (BiondVax) Purple Cap Monovalent 03/18/20 21,02/25/2021 Hepatitis B Adult/Adolescent IM 07/07/2011,01/20,12/09/2010 MMR 12/09/2010 Tdap 12/09/2010 Family History Medical History Relation Name Comments Diabetes Brother Alberto Bettina Heart disease Brother Alberto Rabagotox Cancer Father Romeo Rabagotox /Lung C ancer Lung cancer Father Romeo Rabagotox 2014, mets to brain COPD Maternal Grandfather AIDEE Elroy Cancer Maternal Grandfather AIDEE Abbasi d Diabetes Mother Ramona Acosta Heart disease Mother Ramona Acosta Heart Attack Hyperlipidemia Mother Ramona Acosta Diabetes Paternal Grandfather Ora Bettina Relation Name Status Comments Brother Alberto Bettina Alive Father Romeo Sampsonx (Age 74) Maternal Grandfather AIDEE Abbasi Mother Ramona Acosta Alive Paternal Grandfather Ora Bettina Alive Social History Tobacco Use Types Packs/Day Years [...] Orientation Straight 03/08/2023 4: 00 PM EDT Last Filed Vital Signs Vital Sign Reading [...] Mass Index 34.72 2024 12:06 PM EDT Plan of Treatment Upcoming Encounters Date Type Department Care Team (Late st Contact Info) Description 02/04/2025 11:00 AM EDT Office Visit [facility] [address] [place] [address] Callum Leiva MD [address] [place] [address] Health Maintenance Due Date Last Done Comments DIABETIC FOOT EXAM 12/12/1973 Pneumococcal Vaccine 50+ (1 of 2 - PCV) 12/12/1982 COLON CANCER SCREENING 5 YEA R SIGMOIDOSCOPY 12/12/2008 COLONOSCOPY 12/12/2008 CT COLONOGRAPHY 12/12/2008 FIT Testing (1 year) 12/12/2008 ZOSTER VACCINE (1 of 2) 12/12/2013 FECAL OCCULT BLOOD TEST 02/20/2017 02/21/2016 TDAP/TD VACCINES (2 - Td or Tdap) 12/09/2020 011 Annual Gynecologic Pelvic an d Breast Exam 03/14/2024 03/13/2023 MAMMOGRAM 11/04/2024 11/04/2022, 06/, 03/10/2020, Additional history exists DIABETIC EYE EXAM 12/06/2024 12/07/2023 (Pa tient-Reported (Performed Externally)) HEMOGLOBIN A1C 03/29/2025 09/26/2024, 2 , 03/26/2024, Additional history exists ANNUAL WELLNESS VISIT 04/12/2025 04/12/2024 , 10/28/2022, 10/15/2021 LUNG CANCER SCREENING 04/19/2025 04/19/2024 URINE MICROALBUMIN-CREATININ E RATIO (uACR) 06/27/2025 06/27/2024 LIPID PANEL 09/26/2025 09/26/2024, 06/09, 03/26/2024, Additional history exists PAP SMEAR 03/13/2026 03/13/2023, 05/2018 (Patient-Reported (Performed Externally)) COLOGUARD 04/11/2027 04/11/2024 COLORECTAL CANCER SCREENING 04/11/2027 HEPATITIS C SCREENING Completed 01/29/2016 COVID-19 Vaccine Discontinued 03/18/2021, 02/25/2021 Procedures Procedure Name Priority Date/Time Associated Diagnosis Comments US NONVASCULAR EXTREMITY LIMITED Routine 12/24/2024 Mass of left ankle XR ANKLE 2 VW LEFT Routine 12/04/2024 12 :52 PM EDT Acute left ankle pain HEMOGLOBIN A1C Routine 09/26/2024 11:55 AM EDT Type 2 diabetes mellitus without complication, without long-term current use of insulin LIPID PANEL W/ CHOL/HDL RATIO Routine 09/26/2024 11:55 AM EDT Mixed hyperlipidemia POC ALBUMIN/CREATININE RATIO Routine 06/27/2024 11:42 AM EST Type 2 diabetes mellitus without complication, without long-term current use of insulin CT CHEST LOW DOSE WO CANCER SCREENING STAT 04/19/2024 1:01 PM EST Encounter for screening for lung cancer History of cigarette smoking COLOGUARD Routine 04/11/2024 5:00 PM EST Colon cancer screening LIQUID-BASED PAP SMEAR WITH HPV GENOTYPING REGARDLESS OF INTERPRETATION, [facility] (KINZA,COR,MAD) Routine 03/13/2023 2:12 PM EST Well female exam with routine gynecological exam SCANNED - MAMMO 03/10/2020 POCT OCCULT BLOOD STOOL STAT 02/21/2016 2:39 PM EDT from Last 3 Months or Most Recently Relevant to Health Maintenance Results * US Nonvascular Extremity Limited (12/24/2024) Anatomical Region Laterality Modality Upper Extremities, Lower Extremities Ultrasound us Inderjit Mireles MD IMG US ORDERABLES Final Result * XR Ankle 2 View Left (12/04/2024 [...] MD 12/11/2024 12:24 PM EDT Workstation ID: [id number] Narrative 12/11/2024 12:24 PM EDT XR ANKLE [...] at themedial anterior ankle. Electronically Signed: Truman yLnn MD 12/11/2024 12:24 PM EDT Workstation ID: [id number] Radha Porter PA-C IMG DIAGNOSTIC IMAGING ORDER JOSELYN Final Result * (ABNORMAL) Lipid Panel With / Chol / HDL Ratio (09/26/2024 11:55 AM EDT) Total Cholesterol 247(H) 100 - 199 mg/dL [facility] Triglycerides 413(H) 0 - 149 mg/dL [facility] HDL Cholesterol 45 >39 mg/dL [facility] VLDL Cholesterol Chente 74(H) 5 - 40 mg/dL [facility] LDL Chol Calc (NIH) 128(H) 0 - 99 mg/dL [facility] Chol/HDL Ratio 5.5(H) 0.0 - 4.4 ratio [facility] Comment: T. Chol/HDL Ratio Men Women 1/2 Avg.Risk 3.4 3.3 Avg.Risk 5.0 4.4 2X Avg.Risk 9.6 7.1 3X Avg.Risk 23.4 11.0 Blood 09/26/2024 11:5 5 AM EDT 09/26/2024 Narrative [facility] (AMBULATORY) - 09/27/2024 7:09 AM EDT Performed at: 01 - [address] [id number] Sap Portal Consultant: Ravi Jimenez PhD, Phone: [phone] Patient Fasting: Y Callum Leiva MD LAB BLOOD ORDERABLES Final Resu lt [facility] (AMBULATORY) [address] [place] [address], [facility] [address] [place] [address], * (ABNORMAL) Hemoglobin A1c (09/26/2024 11:55 AM EDT) Hemoglobin A1C 6.1(H) 4.8 - 5.6 % [facility] Comment: Prediabetes: 5.7 - 6.4 Diabetes: >6.4 Glycemic control for adults with diabetes: <7.0 Blood 09/26/2024 11:5 5 AM EDT 09/26/2024 Narrative [facility] (AMBULATORY) - 09/27/2024 7:09 AM EDT Performed at: - [address] [id number] [employer] Portal Consultant: Ravi Jimenez PhD, Phone: [phone] Patient Fasting: Y us Callum Leiva MD LAB BLOOD ORDERABLES Final Resu lt [facility] (AMBULATORY) [address] [place] [address], [facility] [address] [place] [address], * Albumin/Creatinine Ratio Urine (06/27/2024 11:42 AM EST) Pathologist [facility] POC ALBUMIN, URINE 10 mg/L Comment:Normal POC CREATININE, URINE 50 mg/dL POC Urine Albumin Creatinine Ratio <30 <30 mg/g Lot Number [id number] Expiration Date 11/04/2024 Urine 06/27/2024 11:4 2 AM EST us Callum Leiva MD POINT OF CARE TEST ORDERABLES F inal Result * CT Chest Low Dose Cancer Screening WO (04/19/2024 1:01 PM EST) Anatomical Region Laterality Modality Chest Computed Tomogra phy 04/19/2024 1:14 PM EST Impressions 04/19/2024 1:20 PM EST Impression: 1. No suspicious pulmonary nodules or masses to indicate primary lung carcinoma. 2. Scarring versus subsegmental atelectasis in the lower lobes. 3. Mild emphysema. 4. Chronic calcific granulomatous disease. Recommendation: Continue annual screening with LDCT Lung Rads Assessment: Lung-RADS L1 - Negative, <1% chance of malignancy. Electronically Signed: Callum Allen MD 04/19/2024 1:20 PM EST Workstation ID: [id number] Narrative 04/19/2024 1:[address] CHEST LOW DOSE CANCER SCREENING WO Date of Exam: 04/19/2024 12:54 PM EST Indication: Screening for lung cancer, 13-kjip-wqyl history of smoking, COPD. Comparison: None available. Technique: Low dose CT imaging of the chest was performed without intravenous contrast enhancement. Automated exposure control and iterative reconstruction methods were used. Findings: There are no suspicious pulmonary nodules or masses to indicate primary lung carcinoma. There are bandlike linear densities in the lower lobes representing pulmonary scars versus subsegmental atelectasis. There is mild emphysema. The tracheobronchial tree is normal. There are no layering pleural effusions. There are calcified mediastinal and left hilar lymph nodes indicating old healed granulomatous disease. There are atherosclerotic vascular calcifications which includes involvement of the coronary arteries. The heart size is normal. There are no acute findings beneath the hemidiaphragms. There are atherosclerotic vascular calcifications in the upper abdomen. There is partially imaged fusion hardware in the lower cervical spine. There are underlying degenerative changes. There are no suspicious osteolytic or sclerotic lesions within the bony structures. Procedure Note Callum Allen MD - 04/19/2024 CT CHEST LOW DOSE CANCER SCREENING WO Date of Exam: 04/19/2024 12:54 PM EST Indication: Screening for lung cancer, 38-qkth-zlnq history of smoking,COPD. Comparison: None available. Technique: Low dose CT imaging of the chest was performed withoutintravenous contrast enhancement. Automated exposure control anditerative reconstruction methods were used. Findings: There are no suspicious pulmonary nodules or masses to indicate primarylung carcinoma. There are bandlike linear densities in the lower lobesrepresenting pulmonary scars versus subsegmental atelectasis. There ismild emphysema. The tracheobronchial tree is normal. There are no layering pleural effusions. There arecalcified mediastinal and left hilar lymph nodes indicating old healedgranulomatous disease. There are atherosclerotic vascular calcificationswhich includes involvement of the coronary arteries. The heart size is normal. There are no acute findings beneaththe hemidiaphragms. There are atherosclerotic vascular calcifications inthe upper abdomen. There is partially imaged fusion hardware in the lowercervical spine. There are underlying degenerative changes. There are no suspicious osteolytic orsclerotic lesions within the bony structures. IMPRESSION: Impression: 1. No suspicious pulmonary nodules or masses to indicate primary lungcarcinoma. 2. Scarring versus subsegmental atelectasis in the lower lobes. 3. Mild emphysema. 4. Chronic calcific granulomatous disease. Recommendation: Continue annual screening with LDCT Lung Rads Assessment: Lung-RADS L1 - Negative, <1% chance of malignancy. Electronically Signed: Callum Allen MD 04/19/2024 1:20 PM EST Workstation ID: [id number] Callum Leiva MD IM CT ORDERABLES Final Result * Cologuard - Stool, Per Rectum (04/11/2024 5:00 PM EST) Cologuard Negative Negative 04/19/2024 11:36 AM EST [facility] (CLIA #:[id number]) Comment: NEGATIVE TEST RESULT. A negative Cologuard result indicates a low likelihood that a colorectal cancer (CRC) or advanced adenoma (adenomatous polyps with more advanced pre-malignant features) is present. The chance that a person with a negative Cologuard test has a colorectal cancer is less than 1 in 1500 (negative predictive value >99.9%) or has an advanced adenoma is less than 5.3% (negative predictive value 94.7%). These data are based on a prospective cross-sectional study of 10,000 individuals at average risk for colorectal cancer who were screened with both Cologuard and colonoscopy. (Clarita Mari al, N Engl J Med 2014;370(14):4016-6321) The normal value (reference range) for this assay is negative. COLOGUARD RE-SCREENING RECOMMENDATION: Periodic colorectal cancer screening is an important part of preventive healthcare for asymptomatic individuals at average risk for colorectal cancer. Following a negative Cologuard result, the [place] [employer] Society and U.S. Multi-Society Task Force screening guidelines recommend a Cologuard re-screening interval of 3 years. References: [place] [employer] Guideline for Colorectal Cancer Screening: https://www.cancer.org/cancer/rogya-uxdzlw-ymrpbv/bsedjusgy-eridkgasx-obrqebo/ac s-rec ommendations.html.; Chetan DK, Sarah CR, Gorge JaramilloK, Colorectal Cancer Screening: Recommendations for Physicians and Patients from the U.S. Multi-Society Task Force on Colorectal Cancer Screening , Am J Gastroenterology 2017; 112:8020-8806. TEST DESCRIPTION: Composite algorithmic analysis of stool DNA-biomarkers with hemoglobin immunoassay. Quantitative values of individual biomarkers are not reportable and are not associated with individual biomarker result reference ranges. Cologuard is intended for colorectal cancer screening of adults of either sex, 45 years or older, who are at average-risk for colorectal cancer (CRC). Cologuard has been approved for use by the U.S. FDA. The performance of Cologuard was established in a cross sectional study of average-risk adults aged 50-84. Cologuard performance in patients ages 45 to 49 years was estimated by sub-group analysis of near-age groups. Colonoscopies performed for a positive result may find as the most clinically significant lesion: colorectal cancer [4.0%], advanced adenoma (including sessile serrated polyps greater than or equal to 1cm diameter) [20%] or non- advanced adenoma [31%]; or no colorectal neoplasia [45%]. These estimates are derived from a prospective cross-sectional screening study of 10,000 individuals at average risk for colorectal cancer who were screened with both Cologuard and colonoscopy. (Clarita Mari al, N Engl J Med 2014;370(14):1419-8959.) Cologuard may produce a false negative or false positive result (no colorectal cancer or precancerous polyp present at colonoscopy follow up). A negative Cologuard test result does not guarantee the absence of CRC or advanced adenoma (pre-cancer). The current Cologuard screening interval is every 3 years. ([place] [employer] and U.S. Multi-Society Task Force). Cologuard performance data in a 10,000 patient pivotal study using colonoscopy as the reference method can be accessed at the following location: www.Tabblo/results. Additional description of the Cologuard test process, warnings and precautions can be found at www.colLantern Pharmard.Archetype Media. Stool specimen (specimen) Specimen from rectum / Unknown 04/11/2024 5:00 PM EST 04/13/2024 3:06 PM EST Callum Leiva MD BODY FLUIDS AND STOOLS ORDERABL ES Final Result [facility] (CLIA #:[id number]) [address] [place] [address], * LIQUID-BASED PAP SMEAR WITH HPV GENOTYPING REGARDLESS OF INTERPRETATION (KINZA,COR,MAD) (03/13/2023 2:12 PM EST) Reference Lab Report [facility] [address] [place] [address] or [phone] Kedar Turpin M.D., Printing Worker Supervisor PATIENT NAME LABORATORY NO. 650 LAURA FORMAN [id number] AGE SEX N CLIENT REF # [facility] [address] 1965 F [id number] [facility] REQUESTING Meenakshi ATTENDING M.D. COPY TO. [address] [place] [address] DATE COLLECTED DATE RECEIVED DATE REPORTED 03/13/2023 03/13/2023 03/15/2023 ThinPrep Pap with Cytyc Imaging DIAGNOSIS: Negative for intraepithelial lesion or malignancy Multiple factors can influence accuracy of Pap tests; therefore, screening at regular intervals is necessary for early cancer detection. SPECIMEN ADEQUACY: SATISFACTORY FOR EVALUATION Transformation zone is present. SOURCE OF SPECIMEN: CERVICAL SLIDES: 1 CLINICAL HISTORY: Well female exam with routine gynecological exam HPV HR-HPV POOL: Negative The Aptima HPV assay is an in vitro nucleic acid amplification test for the qualitative detection of E6/E7 viral messenger RNA from 14 high risk types of HPV in cervical specimens. The high risk HPV types detected include: 16, 18, 31, 33, 35, 39, 45, 51, 52, 56, 58, 59, 66, 68 ADULT EDUCATION TEACHER: YANIRA MONTALVO (ASCP) CPT CODES: 95537, 54773 03/15/2023 10:22 AM EST [facility] ThinPrep Vial Cervix uteri structure / Unknown Collection / Unknown 03/13/2023 2:12 PM EST 03/13/2023 2:12 PM EST Callum Leiva MD PATHOLOGY/CYTOLOGY ORDERABLES F inal Result [facility]
[address] [place] [address], * SCANNED - MAMMO (03/10/2020) Anatomical Region Laterality Modality Other Callum Leiva MD CHART REVIEW TABS Final Resu lt * POCT Occult Blood, stool (02/21/2016 2:39 PM EDT) Fecal Occult Blood Negative [facility] Lot Number [id number] [facility] Expiration Date 04/24 [facility] DEVELOPER LOT NUMBER [id number] [facility] DEVELOPER EXPIRATION DATE 03/26 [facility] Positive Control Positive Positive [facility] Negative Control Negative Negative [facility] Stool Specimen from rectum / Unknown 02/21/2016 2:39 PM EDT Lester Garcia MD POINT OF CARE TEST ORDERABLES Final Result [facility]
[address] [place] [address], [place] [phone] from Last 3 Months or Most Recently Relevant to Health Maintenance Insurance [facility] MEDICARE ADVANTAGE SNP HMO Advance Directives * Full Code (Latest Code Status on File) Date Activated Date Inactivated Comments 02/21/2016 10:53 PM 02/23/2016 5:20 PM * Full Code Date Activated Date Inactivated Comments 01/24/2016 5:51 PM 01/28/2016 1:22 PM Question Answer Comments Level Of Support Discussed With: needs clarification Care Teams Engineer Specialist Relationship Specialty Start Date End Date Callum Leiva MD [facility] [place] [address] PCP - General Family Medicine 10/22/19
--- NOTE | 2025-01-07 10:50 | ECG_ITS ---
APPROVED REPORT Exam: Resting ECG HR:65 bpm ECG Measurements Heart Rate 65 AXES ME 144 P 25 QRSd 99 QRS 29 QT 415 T 56 QTc 427 Conclusion SINUS RHYTHM LOW QRS VOLTAGE IN PRECORDIAL LEADS Late R wave progression BORDERLINE ECG UNCONFIRMED REPORT Electronically signed by : Inderjit Ewing MD 01/11/2025 08:09:27
[2025-01-07 11:16] LABS: Hematocrit 45.1 % (37.0-47.0); Hemoglobin 14.9 g/dL (12.2-16.2); Immature Granulocytes % 0.4 %; Mean Corpuscular HGB Conc 33.0 g/dL (31.8-35.4); Mean Corpuscular Hemoglobin 30.3 pg (27.0-31.2); Mean Corpuscular Volume 91.9 fl (81-99); Nucleated Red Blood Cells % 0 %; Platelet Count 208 K/mm3 (142-424); Red Blood Count 4.91 M/mm3 (4.20-5.40); Red Cell Distribution Width-SD 44.7 fL; White Blood Count 7.9 K/mm3 (4.8-10.8)
[2025-01-07 11:29] LABS: Alanine Aminotransferase 31 U/L (12-78); Albumin Level 4.2 g/dl (3.5-5.0); Albumin/Globulin Ratio 1.6 (1.1-1.8); Alkaline Phosphatase 55 U/L (38-126); Anion Gap 10.6 mEq/L (5-15); Aspartate Amino Transferase 34 U/L (14-36); Bilirubin,Total 0.6 mg/dl (0.2-1.3); Blood Urea Nitrogen 15 mg/dl (7-17); Calcium 9.2 mg/dl (8.4-10.2); Carbon Dioxide 29 mmol/L (22.0-30.0); Chloride 105 mmol/L (98-107); Creatinine Clearance Estimated 82 mL/min (50-200); Creatinine,Serum 1.00 mg/dl (0.52-1.04); Estimated Glomerular Filt Rate 56 ml/min (>60); GFR (African American) 68 ML/MIN (>60); Globulin 2.7 g/dL (1.3-3.2); Glucose 87 mg/dl (74-100); Potassium 3.6 mmoL/L (3.5-5.1); Sodium 141 mmol/L (136-145); Total Protein,Serum 6.9 g/dl (6.3-8.2)
[2025-01-07 11:34] LABS: C-Reactive Protein 0.9 mg/L (0-4)
[2025-01-07 11:39] LABS: Hemoglobin A1C 5.9 % (4.0-6.0)
== END 2025-01-07 23:59 | disposition home or self-care (01) ==
LOC: PREOP 10:06
PROVIDERS: PCP Family Medicine; Visit Provider Podiatrist
DX: Z01.810 Encounter for preprocedural cardiovascular examination (principal); Z01.812 Encounter for preprocedural laboratory examination; R94.31 Abnormal electrocardiogram [ECG] [EKG]
CPT/HCPCS: 80053; 83036; 85025; 85651; 86140; 93005

== ENCOUNTER 2025-01-15 08:31 | Day surgery (SDC) | payer MEDICARE, MEDICAID, SELFPAY ==
[2025-01-07 12:28] VITALS: BMI 34.3
[2025-01-15] VITALS (11 sets, daily range): BP systolic 108–136; BP diastolic 59–75; PULSE 71–83; RESP 16–18; TEMP 36.1–38; O2SAT 91–100
[2025-01-15] MEDS: 0.9 % SODIUM CHLORIDE 1000ML 1,000 ML 50 ML IV (09:16)
--- NOTE | 2025-01-15 09:20 | EXP.ANES.CKL ---
[facility] Disclaimer: The information contained in this section may have been updated after the patient was seen, as this information can be updated by other users. Medical History (Updated 01/07/25 @ 10:36 by Jeb Pace RN) History of basal cell carcinoma HLD (hyperlipidemia) History of skin cancer Elevated troponin Chest pain CRPS (complex regional pain syndrome type I) Rupture of extensor tendon of finger Poison raquel dermatitis Class II obesity Surgical History (Updated 01/07/25 @ 10:34 by Jeb Pace RN) History of tonsillectomy History of back surgery History of neck surgery History of cholecystectomy H/O foot surgery Family History (Updated 01/07/25 @ 10:35 by Jeb Pace RN) Other Dementia Family history of cancer Family history of diabetes mellitus Family history of heart disease Social History (Updated 01/07/25 @ 10:36 by Jeb Pace RN) Smoking Status: Former smoker tobacco type: cigarettes packs per day: 1 second hand exposure: Yes alcohol intake: never substance use type: denies use current occupational status: disabled Travel in the last 8 weeks?: Inside the [facility] household members: other housing: house current occupational exposures/hazards: No caffeine: Yes Have you lived/traveled outside US in past 30 days?: No Contact w/someone who lives/traveled outside US past 30 days?: No Exposure to someone with infectious disease in past 14 days?: No Do you have a fever (greater than 100.4 F or 38 C)?: No Have you tested positive for COVID-19?: No Exposed to someone with COVID-19 in past 14 days?: No Do you have a sore throat?: No Do you have a cough?: No Do you have any weakness?: No Do you have any diarrhea?: No Are you experiencing any unusual bleeding?: No Do you have any muscle aches/pain?: No Do you have any abdominal pain?: No Are you experiencing loss of taste or smell?: No [facility] Anesthesia Checklist Patient Identification Patient Identification: Arm Band and Verbal (Name & ) Structural Data Admitted From: Home Planned Operative Procedure/s: Left ankle tissue mass removal, possible bone biopsy Verified Documents: Surgical Consent NPO Status Verified Time NPO: 00:00 Chart Verification Results Verified: ECG Additional verifications Anesthesia Reactions: No Hx Blood Transfusions: No Blood Transfusion Reaction: No Airway Assessment Mallampati Score:: Class II C-Spine Mobility Assessed: Yes TMJ Mobility Assessed: Yes Dentition: Good Dentition Neurological Assessment Level of Consciousness: Awake, Alert and Appropriate Hx Seizures: No Numbness or tingling in extremities: No Anesthesia Plan ASA Class: II Anesthesia Type: General
[2025-01-15] MEDS: BUPIVACAINE 0.5% 30ML VIAL 150 MG (09:56)
[2025-01-15] MEDS: GENTAMICIN 80 MG/2 ML VIAL (09:56)
[2025-01-15] MEDS: CLINDAMYCIN PHOSPHATE/D5W 900 MG/50 ML PIGGYBACK 100 MG IV (09:57)
--- NOTE | 2025-01-15 10:33 | EXP.OP.NOTE ---
Date of procedure: 01/15/25 Pre-op Diagnosis:: Left ankle soft tissue mass Left ankle pain Rule out left ankle hematoma vs abscess Post-op Diagnosis:: Left ankle soft tissue mass: Suspected lipoma Procedure performed:: Left ankle/distal leg excision of soft tissue mass (>5cm) Left ankle I&D (incision and drainage) for abscess/hematoma (16724) Deep soft tissue biopsy (60614) Surgeon:: Lacy Rowe DPM HEALTH PROMOTION EDUCATOR:: Douglas Lockett Anesthesia: GETA and local (25cc 0.5% marcaine plain) Estimated blood loss (mL): 20 Clinical Note:: Pre-op indications: Patient is a 59-year-old female who presents with left ankle pain and a soft tissue mass present for several months. She has had recent imaging including x-rays and an ultrasound. Discussed MRI for further soft tissue evaluation however due to her insurance co-pay/cost expense, patient declined MRI. Mass is clinically very obvious and due to location of the front of the ankle patient cannot put shoes or boots. Conservative treatment included rest, ice, elevation, compression, NSAIDs, strapping, modification of shoe gear, and prior aspiration-yielded no fluid. Conservative treatment discussed but has been exhausted. We discussed surgery. Risks and benefits were discussed including but not limited to: recurrence of the mass, incomplete removal of mass, damage to blood vessels and nerves, bleeding, infection, wound complications, delay in healing of soft tissue/wound dehiscence, need for further surgery, prolonged/permanent swelling of the extremity, prolonged/permanent pain or deformity, RSD/CRPS, DVT/PE, and anesthetic complications including . No personal or family history of DVT. Discussed her risk factors: hx tobacco abuse and obesity, plan for aspirin 81 mg postop while immobilized. Smoking cessation-she stopped smoking in September 2023. No guarantees were given. All questions fully answered. The patient verbalized understanding and agreed to proceed with surgery. Verbal and written consent was obtained. Pre-op testing ordered: cbc, cmp, esr, crp (evaluate for infectious process), Ha1c (borderline DM), EKG reviewed. Operative findings:: Left anterior medial ankle soft tissue mass noted. No obvious signs of hematoma appreciated. Soft tissue mass was palpable and firm, it was resected without complication. It should be noted that there was both nerve and blood vessels supplying/connecting to the mass which were transected in order to remove the mass. Post resection it was approximately 4.5 x 2.7 cm. On the back table the mass was cut and there was no cystic fluid drained. It appeared to be more of a lipoma than a ganglion cyst. A separate incision was made with a 15 blade into the deep fascia over the extensor tendon about 2 cm long performing I&D. No purulence malodor or ascending cellulitis. No evidence of sinus tracking. No obvious signs of infection noted. Operative note:: On this date and time patient was deemed an appropriate surgical candidate. With informed consent signed, the patient was taken to the operating theater. The patient was positioned supine. General anesthesia was induced. Tourniquet was applied to mid-calf and set at 225 mmHg. Pre-op left ankle block given with 20 cc 0.5% marcaine plain. IV Clinda given. The left extremity was prepped and draped in normal sterile fashion. Left medial ankle soft tissue mass/lipoma excision with biopsy: The limb exsanguinated and tourniquet inflated. Attention was directed to the medial ankle where a 4x3cm round mass was noted. A lazy S incision was mapped out over the mass. Layered soft tissue dissection with care to maintain surgical hemostasis and safely track neurovascular structures. Lipoma was identified in the subcutaneous tissue layer extending down to the deep fascia but not through the extensor tendon. It was excised in total and sent to pathology as specimen. No signs of infection. No nerve impingement appreciated. Gentamicin irrigation used to flush site. Left ankle I&D: Next a 15 blade was used to make a separate incision between the tibialis anterior and extensor tendon full-thickness through the deep fascia. Wound culture was taken of the serous drainage. No purulence or signs of infection were noted. Area flushed with copious amounts of gentamicin irrigation. Site was reexplored and no signs of infection, hematoma or abscess were appreciated. Application of amniotic graft: Due to the extensive soft tissue masses and dissection, post excision subcutaneous layer and skin was very thin. A piece of amniotic tissue was laid over the mass resection site and subcutaneous tissue in order to prevent adhesions and scarring of the blood vessels/nerve to tissue and to the thin skin. The tourniquet was deflated and immediate anemic response was noted to the digits. Bleeding controlled. Vessels ligated with electrocautery and tied as necessary.The wounds once again flushed with copious amounts of gentamicin irrigation. No signs of infection. Vicryl was used to close deep tissue and subcutaneous tissue and a running fashion. Nylon was then used to reapproximate the skin. The wounds were cleansed. 10 cc 0.5% marcaine plain was injected at the end of the case around the incision and in an ankle block. Xeroform, betadine soaked gauze, dry sterile dressing was then applied to the left ankle. The patient was awoken from anesthesia and transferred to recovery with vital signs stable and neurovascular status intact. She appeared to tolerate procedure and anesthesia without complication. Materials: [facility] Amniotic tissue allograft membrane graft x 1 (2x3 cm) Discharge/Plan: Ok to discharge home today when vss. Patient is to maintain dressing clean dry and intact. Elevate on two pillows. Partial weight bearing to the left lower extremity with fracture boot and DME assistance (crutches, walker, rolling knee scooter). Follow up in one week as previously scheduled for incision check and dressing change. Condition: stable Disposition: same day Specimens:: Left ankle soft tissue mass/suspected lipoma Left ankle wound culture Complications:: None
[2025-01-15] MEDS: HYDROMORPHONE 2MG/ML SYRINGE 0.5 MG IV (10:59)
[2025-01-15] MEDS: KETOROLAC 30MG/ML VIAL 30 MG (11:12)
--- NOTE | 2025-01-16 07:18 | P.PNANES_ITS ---
[facility] Anesthesia Record Part II Anesthesia Record Part II Discharge Time: 11:00 Destination: [facility] PACU nurse assessment reviewed?: Yes Patient Condition:: Good Anesthesia Complications:: None Swallowing reflex intact?: Yes Airway Patency: Patent Cyanosis?: No Blood Pressure: 108/65 SaO2: 99 Respiratory Rate: 16 Pulse Rate: 74 Temperature: 97.0 F Mental Status: Alert & Oriented Pain level:: 10 Nausea and/or vomitting:: None Intake, IV Amount: 1,500 Hydration: Adequate
[2025-01-16 07:20] VITALS: BP 108/65; PULSE 74; RESP 16; TEMP 36.1; O2SAT 99
== END 2025-01-15 11:58 | disposition home or self-care (01) ==
PROVIDERS: PCP Family Medicine; Visit Provider Podiatrist
PROC: (CPT 15273; principal; 2025-01-15 09:45)
DX: D23.72 Other benign neoplasm of skin of left lower limb, including hip (principal); M25.572 Pain in left ankle and joints of left foot; M25.472 Effusion, left ankle; R20.0 Anesthesia of skin; R20.2 Paresthesia of skin; S90.02XA Contusion of left ankle, initial encounter; G57.71 Causalgia of right lower limb; E66.811 Obesity, class 1; Z68.34 Body mass index [BMI] 34.0-34.9, adult; R73.03 Prediabetes; F17.210 Nicotine dependence, cigarettes, uncomplicated; Z79.899 Other long term (current) drug therapy; Z88.2 Allergy status to sulfonamides; Z88.0 Allergy status to penicillin; Z88.5 Allergy status to narcotic agent
CPT/HCPCS: 15273; 27603; 27632; 87070; 87205; 88304; J0665; J0736; J1100; J1171; J1580; J1885; J2003; J2250; J2405; J2704; J3010; J7030; Q4173

== ENCOUNTER 2025-02-12 15:38 | Outpatient (CLI) | payer MEDICARE, SELFPAY ==
--- NOTE | 2025-02-12 15:41 | MM_ITS ---
PROCEDURE INFORMATION: Exam: MG Bilateral Screening 3D Mammography Exam date and time: 02/12/2025 3:53 PM Age: 59 years old Clinical indication: Screening examination TECHNIQUE: Imaging protocol: Bilateral Screening tomosynthesis and 2D mammography including computer-aided detection (CAD) when performed. COMPARISON: 1. MG MM DIG SCREENING MAMM BI W/CAD 11/04/2022 1:31 PM 2. MG MM DIG SCREENING MAMM BI W/CAD 03/10/2020 1:28 PM FINDINGS: MAMMOGRAPHY: Breast composition: There are scattered areas of fibroglandular density. Mass: None. Architectural distortion: None. Calcifications: No suspicious calcifications. Asymmetric density: None. Skin thickening: None. Axillary adenopathy: None. IMPRESSION: No mammographic evidence of malignancy. Annual screening is recommended unless otherwise clinically indicated. ASSESSMENT: BI-RADS Category 1: Negative.
== END 2025-02-12 23:59 | disposition home or self-care (01) ==
LOC: RAD 15:39
PROVIDERS: PCP Family Medicine; Visit Provider Family Medicine
DX: Z12.31 Encounter for screening mammogram for malignant neoplasm of breast (principal); R92.323 Mammographic fibroglandular density, bilateral breasts
CPT/HCPCS: 77063; 77067

== ENCOUNTER 2025-03-10 12:37 | Outpatient (CLI) | payer MEDICARE, SELFPAY ==
--- OUTSIDE RECORDS SUMMARY | 2025-02-04 10:00 | XMS_ITS | Encounter Summary ---
Author Organization [facility] ystem Address [address] [place] [address] Care Team Providers Care Cut Roll Machine Operator Name Role Phone Callum Leiva MD Primary Care Provider [phone] Reason for Referral * Diagnostic Imaging (Routine) - Authorized Specialty Diagnoses / Procedures Referred By Contac t Referred To Contact Diagnoses Encounter for screening mammogram for malignant neoplasm of breast Procedures Mammo Screening Digital Tomosynthesis Bilateral With CAD Callum Leiva MD [address] [place] [address] Phone: tel: fax: [facility] [address] [place] [address] Phone: tel: fax: Referral ID Status Reason Start Date Expiration Date V isits Requested Visits Authorized [id number] Authorized 02/04/2025 05/06/2026 1 1 Reason for Visit * Reason Comments 6mo f/u Encounter Details Date Type Department Care Team (Late st Contact Info) Description 02/04/2025 11:00 AM EDT Office Visit [facility] [address] [address] Callum Leiva MD [address] [address] Type 2 diabetes mellitus without complication, without long-term current use of insulin (Primary Dx); Mixed hyperlipidemia; Neuropathic pain; Depressed mood; Encounter for screening mammogram for malignant neoplasm of breast Social History Tobacco Use Types Packs/Day Years Used Date Smoking Tobacco: Former Cigarettes 2.5 40.4 0 05/08/1983 - 10/13/2023 Passive Smoke Exposure: Past Smokeless Tobacco: Never Alcohol Use Standard Drinks/Week Comments Never 0 (1 standard drink = 0.6 oz pur e alcohol) PHQ-2 Answer Date Recorded Retired PHQ-9: Brief Depression Severity Measure Score 11 10/28/2022 PHQ-2 Answer Date Recorded Patient Health Questionnaire-2 Score 0 02/04/2025 Comments Unknown Sex and Gender Information Value Date Recorded Sex Assigned at Female 03/08/2023 4:00 PM EDT Legal Sex Female 12:18 PM EDT Gender Identity Female 03/08/2023 4:00 PM EDT Sexual Orientation Straight 03/08/2023 4: 00 PM EDT documented as of this encounter Last Filed Vital Signs Vital Sign Reading Time Taken Comments Blood Pressure 126/80 02/04/2025 10:59 AM EDT Pulse 78 02/04/2025 10:59 AM EDT Temperature 37.4 C (99.4 F) 02/04/2025 10:59 AM EDT Respiratory Rate 16 02/04/2025 10:59 AM EDT Oxygen Saturation 94% 02/04/2025 10:59 AM EDT Inhaled Oxygen Concentration - - Weight 87.1 kg (192 lb) 02/04/2025 10:59 AM EDT Height 160 cm (5' 3 ) 02/04/2025 10:59 AM EDT Body Mass Index 34.01 02/04/2025 10:59 AM EDT documented in this encounter Functional Status documented as of this encounter Progress Notes * Callum Leiva MD - 02/04/2025 11:00 AM EDT Chief Complaint 6mo f/u Subjective Yanethkimberlee Dunbar presents to [facility] HPI The patient, a 59-year-old female, presents for a follow-up consultation. She recently underwent successful excision of a fibrous cyst located on the medial aspect of her right ankle and the dorsum of her foot. Postoperatively, she observed an area of wound exudate following the removal of bandages. A wound culture was obtained, and she completed a 5-day course of antibiotics. She has a forthcoming appointment with Dr. Judy Rowe scheduled for . The patient reports experiencing discomfort, for which she prefers ibuprofen 800 mg as needed. She notes edema in her foot today despite wearing supportive boots and expresses discomfort when keeping her foot elevated. Her hemoglobin A1c was recorded at 5.9%, and she was advised to initiate metformin therapy. Despitefasting, her fasting blood glucose level was 298 mg/dL this morning. She has reduced her coffee intake to one cup per day and consumes water for the remainder of the day. She discontinued all medications for 5 days prior to surgery, which may have impacted her cholesterol levels. She continues to take Zetia and rosuvastatin for hyperlipidemia. She is due for a mammogram, which is scheduled at [facility]. The patient continues to take gabapentin for neuropathy. She takes Paxil at night and Wellbutrin for depression management. She reports experiencing headaches attributed to sinus issues. She has reduced her coffee intake to one cup per day. PAST SURGICAL HISTORY: - Excision of fibrous cyst from the medial aspect of the right ankle and dorsum of the foot. OTHER NOTES: Review of Systems HENT: Negative. Respiratory: Negative for shortness of breath. Cardiovascular: Negative for chest pain. Gastrointestinal: Negative. Neurological: Positive for headache (not new). Objective Vital Signs: BP 126/80 Pulse 78 Temp 99.4 ??F (37.4 ??C) Resp 16 Ht 160 cm (63 ) Wt 87.1 kg (192 lb) SpO2 94% BMI 34.01 kg/m?? Physical Exam Vitals and nursing note reviewed. Constitutional: General: She is not in acute distress. Appearance: Normal appearance. She is not ill-appearing or toxic-appearing. HENT: Head: Normocephalic. Neurological: Mental Status: She is alert. Psychiatric: Mood and Affect: Mood normal. Behavior: Behavior normal. Respiratory: Clear to auscultation, no wheezing, rales or rhonchi Cardiovascular: Regular rate and rhythm, no murmurs, rubs, or gallops Result Review : Other Results Results - Labs: - A1c test: 5.9 - Fasting blood sugar: 298 - White blood cell count: Normal - Red blood cell count: Normal - Cholesterol levels: High Assessment and Plan There are no diagnoses linked to this encounter. DISCUSSION 1. Post-surgical follow-up: Experiencing drainage from the surgical site on her right ankle. Will see Dr. Judy Rowe on for further evaluation. 2. Diabetes mellitus: A1c improved from 6.1 to 5.9. Fasting blood glucose was 298 this morning, which is high. Advised tomonitor blood glucose levels closely and maintain hydration. Lab orders for blood count, liver function, kidney function, cholesterol, and diabetes tests placed. 3. Hyperlipidemia: Cholesterol levels elevated, likely due to discontinuation of medication before surgery. Advised toresume Zetia and rosuvastatin. 4. Depression: Prescription refill for paroxetine provided. 5. Neuropathy: Prescription refill for gabapentin provided. Taking medication appropriately without evidence of misuse or diversion. 6. Health maintenance: Mammogram scheduled at [facility]. Wellness exam during next visit in April 2025. Follow-up: Patient will follow up in April 2025. Rashel dated 02/04/2025 was reviewed and appropriate. Follow Up Return in about 2 months (around 04/14/2025) for Medicare Wellness exam. Patient was given instructions and counseling regarding her condition or for health maintenance advice. Please see specific information pulled into the AVS if appropriate. Callum Leiva MD Patient or patient representative government relations verbalized consent for the use of Ambient Listening during the visit with Callum Leiva MD for chart documentation. 02/04/2025 18:14 EDT documented in this encounter Plan of Treatment Upcoming Encounters Date Type Department Care Team (Late st Contact Info) Description 04/17/2025 11:00 AM EST Office Visit [facility] [address] [place] [phone] Callum Leiva MD [address] [place] [address] Scheduled Orders Name Type Priority Associated Diagnoses Orde r Schedule CBC & Differential Lab Panel Routine Neuropathic pain Expected: 04/07/2025 (Approximate), Expires: 05/06/2026 Comprehensive Metabolic Panel Lab Routine Type 2 diabetes mellitus without complication, without long-term current use of insulin Mixed hyperlipidemia Neuropathic pain Expected: 04/07/2025 (Approximate), Expires: 05/06/2026 Lipid Panel With / Chol / HDL Ratio Lab Routine Type 2 diabetes mellitus without complication, without long-term current use of insulin Mixed hyperlipidemia Expected: 04/07/2025 (Approximate), Expires: 05/06/2026 Hemoglobin A1c Lab Routine Type 2 diabetes mellitus without complication, without long-term current use of insulin Expected: 04/07/2025 (Approximate), Expires: 05/06/2026 documented as of this encounter Results * Mammo Screening Digital Tomosynthesis Bilateral With CAD (02/12/2025) Anatomical Region Laterality Modality Breast N/A Mammography Callum Leiva MD IMG MAMMOGRAPHY ORDERABLES Juli l Result documented in this encounter Visit Diagnoses Diagnosis Type 2 diabetes mellitus without complication, without long-term current use of insulin- Primary Mixed hyperlipidemia Neuropathic pain Depressed mood Encounter for screening mammogram for malignant neoplasm of breast documented in this encounter Care Teams Cut Roll Machine Operator Relationship Specialty Start Date End Date Callum Leiva MD [address] [place] [address] PCP - General Family Medicine 10/22/19 documented as of this encounter
--- OUTSIDE RECORDS SUMMARY | 2025-03-10 12:40 | XMS_ITS | Encounter Summary ---
Author Organization [facility] ystem Address [address] [place] [address] Care Team Providers Care Stereotype Finisher Name Role Phone Callum Leiva MD Primary Care Provider [phone] Encounter Details Date Type Department Care Team (Late st Contact Info) Description 01/27/2025 External PBMM Data [facility] [address] [place] [phone] Pharmacy, Payor Data Social History Tobacco Use Types Packs/Day Years [...] Description 04/17/2025 11:00 AM EST Office Visit [facility] [address] [place] [address] Callum Leiva MD [address] [address] documented as of this encounter Visit Diagnoses Not on filedocumented in this encounter Care Teams Stereotype Finisher Relationship Specialty Start Date End Date Callum Leiva MD [address] [place] [address] PCP - General Family Medicine 10/22/19 documented as of this encounter
--- OUTSIDE RECORDS SUMMARY | 2025-03-10 12:40 | XMS_ITS | Encounter Summary ---
Author Organization [facility] ystem Address [address] [place] [address] Care Team Providers Care Gas Stove Servicer Helper Name Role Phone Callum Leiva MD Primary Care Provider [phone] Encounter Details Date Type Department Care Team (Late st Contact Info) Description 08/16/2024 Results Follow-Up [facility] [address] [employer] [facility] [employer] [facility] [employer] [facility] [facility] [place] [place] [address] Callum Leiva MD [address] [place] [address] Social History Tobacco Use Types [...] Description 04/17/2025 11:00 AM EST Office Visit [facility] [address] [place] [phone] Callum Leiva MD [address] [place] [address] documented as of this encounter Visit Diagnoses Not on filedocumented in this encounter Care Teams Gas Stove Servicer Helper Relationship Specialty Start Date End Date Callum Leiva MD [address] [place] [address] PCP - General Family Medicine 10/22/19 documented as of this encounter
--- OUTSIDE RECORDS SUMMARY | 2025-03-10 12:40 | XMS_ITS | Encounter Summary ---
Author Organization [facility] ystem Address [address] [place] [address] Care Team Providers Care Flour Worker Name Role Phone Callum Leiva MD Primary Care Provider [phone] Encounter Details Date Type Department Care Team (Late st Contact Info) Description 01/08/2025 Results Follow-Up [facility] [address] [facility] [place] [address] Callum Leiva MD [address] [place] [address] Social History Tobacco Use Types [...] Description 04/17/2025 11:00 AM EST Office Visit [facility] [address] [place] [phone] Callum Leiva MD [address] [place] [address] documented as of this encounter Visit Diagnoses Not on filedocumented in this encounter Care Teams Flour Worker Relationship Specialty Start Date End Date Callum Leiva MD [address] [place] [address] PCP - General Family Medicine 10/22/19 documented as of this encounter
--- OUTSIDE RECORDS SUMMARY | 2025-03-10 12:40 | XMS_ITS | Encounter Summary ---
Author Organization [facility] ystem Address [address] [place] [address] Care Team Providers Care Currency Machine Operator Name Role Phone Callum Leiva MD Primary Care Provider [phone] Encounter Details Date Type Department Care Team (Late st Contact Info) Description 01/24/2025 Results Follow-Up [facility] [address] [facility] [address] Callum Leiva MD [address] [place] [address] Social History Tobacco Use Types [...] 04/17/2025 11:00 AM EST Office Visit [facility] [address] [place] [phone] Callum Leiva MD [address] [place] [address] documented as of this encounter Visit Diagnoses Not on filedocumented in this encounter Care Teams Currency Machine Operator Relationship Specialty Start Date End Date Callum Leiva MD [address] [place] [address] PCP - General Family Medicine 10/22/19 documented as of this encounter
--- OUTSIDE RECORDS SUMMARY | 2025-03-10 12:40 | XMS_ITS | Encounter Summary ---
Author Organization [facility] ystem Address [address] [place] [address] Care Team Providers Care Cement Despatch Operator Name Role Phone Callum Leiva MD Primary Care Provider [phone] Encounter Details Date Type Department Care Team (Late st Contact Info) Description 01/24/2025 Results Follow-Up [facility] [address] [facility] [place] [address] Callum Leiva MD [address] [place] [address] Social History Tobacco Use Types [...] Description 04/17/2025 11:00 AM EST Office Visit [facility] [address] [place] [id number] Callum Leiva MD [address] [place] [address] documented as of this encounter Visit Diagnoses Not on filedocumented in this encounter Care Teams Cement Despatch Operator Relationship Specialty Start Date End Date Callum Leiva MD [address] [place] [address] PCP - General Family Medicine 10/22/19 documented as of this encounter
--- OUTSIDE RECORDS SUMMARY | 2025-03-10 12:40 | XMS_ITS | Data Portability ---
Author Organization [place] - [facility] & [place] [facility] ADMIN Address [address] [place] [address] Care Team Providers Care Ent Consultant Name Role Phone CORAL KENT Primary Care Provider Assessment No assessment recorded. Plan of Treatment Reminders Order Date Submit Date Provider Last Modified By Organization Details Last Modified Time Details Appointments None recorded. Lab urinalysis, dipstick [email or web address] [facility] [address], [address], 09:59:32 Referral None recorded. Procedures None recorded. Surgeries None recorded. Imaging None recorded. Medication Orders ondansetron 4 mg disintegrat ing tablet 2024 025 HUSSEIN [id number], [address] [place], [address], 5 10:34:06 Percocet 5 mg-325 mg tablet 2023 024 [email or web address] [id number], [address] [place], [address], 5 10:33:55 Patient TargetsNo targets recorded. Patient InstructionsNo instructions recorded. Reason for Referral None Reported. Results Created Date Observation Date Name Description Value Unit Range Abnormal Flag Note LastModifiedBy Organization Detail LastModifiedTime 01/02/2001/02/2024 RFS-P ATHOL OGY SPECI MEN REQUE ST pathreq Patho logy [address] [place] [address] Phone or [phone] Fax Sha hernandez Jr., M.D., Medic al Direc tor [facility] [address] [address] : [place] [address] Phone Numbe r: [phone] Miles valdovinos M.D. PATHO LOGY REPOR T Patie nt Name: CARMEN Weber Date of : 9[birth year] Age/S ex: 58/F Accou nt Numbe r: [id number] Medic al Recor d Numbe r: [id number] Order ing MD: DWAYNE FOLEY AM Date Colle cted : 2023 Date Recei rubén : 2023 Date Repor marlyn : 2023 Exam: Biops y Acces alley# : [id number] Labor atory #: [id number] Copie s To: DONTE MONCADA Techn ician : Clini china Histo ry Left renal stone BodyS ite HARDW ARE SubSi te LEFT URETE RAL STENT Gross Descr iptio n Recei rubén fresh and label ed expl anted left urete ral stent is a rivera-b lue rubbe r tubin g measu ring 38.0 cm in lengt h and 0.[address]. No secti ons are submi tted, for gross exami natio n only. [place] Final Diagn osis GROSS DIAGN OSIS: CONSI STENT WITH URETE RAL STENT RLL/[place] [address] Legal ly authe ntica marlyn by CHITO SINGH RD, MD 01-01 07:28 :00 Not Available [facility] (Pre-Op Clinic) [address] [place] [address] [place], [address], 01/02/2024 07:50:48 12/22/19 24 12/22/2023 urina lysis , dipst ick Leukocytes (reference range) small Not Available [facility] [address], [address], 12/22/2023 12:03:49 12/22/19 24 12/22/2023 urina lysis , dipst ick Nitrite (reference range:) negati ve Not Available [address], [address], 12/22/2023 12:03:49 12/22/19 24 12/22/2023 urina lysis , dipst ick Urobilinogen (reference range) 0.2 Not Available [address], [address], 12/22/2023 12:03:49 12/22/19 24 12/22/2023 urina lysis , dipst ick Protein (reference range) 100 Not Available [address], [address], 12/22/2023 12:03:49 12/22/19 24 12/22/2023 urina lysis , dipst ick pH (reference range 5-8.5) 5.5 Not Available [address], [address], 12/22/2023 12:03:49 12/22/19 24 12/22/2023 urina lysis , dipst ick Blood (reference range:) large Not Available [address], [address], 12/22/2023 12:03:49 12/22/19 24 12/22/2023 urina lysis , dipst ick Specific Douglas (reference range) 1.020 Not Available [address], [address], 12/22/2023 12:03:49 12/22/19 24 12/22/2023 urina lysis , dipst ick Ketone (reference range) negati ve Not Available [address], [address], 12/22/2023 12:03:49 12/22/19 24 12/22/2023 urina lysis , dipst ick Bilirubin (reference range) negati ve Not Available [facility] [place] [address] [place], [address], 12/22/2023 12:03:49 12/22/19 24 12/22/2023 urina lysis , dipst ick Glucose (reference range) negati ve Not Available [facility] [place] [address] [place], [address], 12/22/2023 12:03:49 12/29/19 24 12/29/2023 STONE KELI SIS(R ENAL CALCU FARIBA) note Unles s other akins noted testi ng perfo rmed at: [facility] [address] [place] [address] Miles valdovinos MD Not Available [facility] (Pre-Op Clinic) [address] [place] [address] [place], [address], 01/10/2024 18:17:16 12/29/19 24 01/10/2024 STONE KELI SIS(R ENAL CALCU FARIBA) source Commen t . Left Urete r Not Available [facility] (Pre-Op Clinic) [address] [place] [address] [place], [address], 01/10/2024 18:17:16 12/29/19 24 01/10/2024 STONE KELI SIS(R ENAL CALCU FARIBA) color Rivera Not Available [facility] (Pre-Op Clinic) [address] [place] [address] [place], [address], 01/10/2024 18:17:16 12/29/19 24 01/10/2024 STONE KELI SIS(R ENAL CALCU FARIBA) size 3x2 mm Multi ple piece s recei rubén. Dimen sions of the large st piece repor marlyn. Not Available [facility] (Pre-Op Clinic) [address] [place] [address] [place], [address], 01/10/2024 18:17:16 12/29/19 24 01/10/2024 STONE KELI SIS(R ENAL CALCU FARIBA) weight 11 mg Not Available [facility] (Pre-Op Clinic) [address] [place] [address] [place], [address], 01/10/2024 18:17:16 12/29/19 24 01/10/2024 STONE KELI SIS(R ENAL CALCU FARIBA) composition Commen t . Perce ntage (Repr esent s the % compo sitio n) Not Available [facility] (Pre-Op Clinic) [address] [place] [address] [place], [address], 01/10/2024 18:17:16 12/29/19 24 01/10/2024 STONE KELI SIS(R ENAL CALCU FARIBA) Ca oxalate monohydrate 75 % Not Available [facility] (Pre-Op Clinic) [address] [place] [address] [place], [address], 01/10/2024 18:17:16 12/29/19 24 01/10/2024 STONE KELI SIS(R ENAL CALCU FARIBA) Ca oxalate dihydrate 20 % Not Available [facility] (Pre-Op Clinic) [address] [place] [address] [place], [address], 01/10/2024 18:17:16 12/29/19 24 01/10/2024 STONE KELI SIS(R ENAL CALCU FARIBA) hydroxyapati te 5 % Not Available [facility] ([facility]Op [facility]) [address] [place] [address] [place], [address], 01/10/2024 18:17:16 12/29/19 24 01/10/2024 STONE KELI SIS(R ENAL CALCU FARIBA) comment Commen t . Calci um phosp hate (hydr oxyl form) inclu torsten hydro xyapa tite, amorp hous calci um phosp hate, and whitl ockit e. Milton xyapa tite is the most commo n of the calci um phosp hate salts found in human kidne y stone s. Not Available [facility] (Pre-Op Clinic) [address] [place] [address] [place], [address], 01/10/2024 18:17:16 12/29/19 24 01/10/2024 STONE KELI SIS(R ENAL CALCU FARIBA) photo Klarissa Perez Photo graph will follo w under a separ ate cover Not Available [facility] (Pre-Op Clinic) [address] [place] [address] [place], [address], 01/10/2024 18:17:16 12/29/19 24 01/10/2024 STONE KELI SIS(R ENAL CALCU FARIBA) comment: Klarissa Perez Physi dc quest ions regar ding Calcu li Keli sis conta ct [facility] r[facility] at: [phone]. Not Available [facility] (Pre-Op Clinic) [address] [place] [address] [place], [address], 01/10/2024 18:17:16 12/29/19 24 01/10/2024 STONE KELI SIS(R ENAL CALCU FARIBA) please note: Klarissa Perez Calcu li repor t will follo w via compu ter, mail or couri henrik rodriguez. Not Available [facility] ([facility]-Op [facility]) [address] [place] [address] [place], [address], 01/10/2024 18:17:16 12/29/19 24 01/10/2024 STONE KELI SIS(R ENAL CALCU FARIBA) disclaimer: Klarissa Perez This test was devel oped and its perfo rmanc e angelo cteri stics deter mined by [facility]. It has not been clear ed or appro rubén by the Food and Drug Admin istra tion. Not Available [facility] (Pre-Op Clinic) [address] [place] [address] [place], [address], 01/10/2024 18:17:16 12/29/19 24 01/10/2024 STONE KELI SIS(R ENAL CALCU FARIBA) pdf . [facility] [address] , [place] [address] Lab Direc tor: Leticia Woodruff ys PhD, Phone : [phone] Not Available [facility] (Pre-Op Clinic) [address] [place] [address] [place], [address], 01/10/2024 18:17:16 08/06/19 25 08/05/2024 CBC NO DIFF (HEMO GRAM) WBC 10.8 K/uL 4.0-10 .5 high Not Available [facility] ([facility]) [address] , [place], [address], 08/05/2024 16:01:39 08/06/19 25 08/05/2024 CBC NO DIFF (HEMO GRAM) RBC 5.0 M/mm3 4.2-6. 4 Not Available [facility] ([facility]) [address] , [place], [address], 08/05/2024 16:01:39 08/06/19 25 08/05/2024 CBC NO DIFF (HEMO GRAM) HGB 15.3 gm/dL 12.5-1 6.0 Not Available [facility] ([facility]) [address] , [place], [address], 08/05/2024 16:01:39 08/06/19 25 08/05/2024 CBC NO DIFF (HEMO GRAM) HCT 45.3 % 37.0-4 7.0 Not Available [facility] ([facility]) [address] , [place], [address], 08/05/2024 16:01:39 08/06/19 25 08/05/2024 CBC NO DIFF (HEMO GRAM) MCV 91.3 fL 78-100 Not Available [facility] ([facility]) [address] [place], [address], 08/05/2024 16:01:39 08/06/19 25 08/05/2024 CBC NO DIFF (HEMO GRAM) MCH 30.8 pg 27-31 Not Available [facility] ([facility]) [address] , [place], [address], 08/05/2024 16:01:39 08/06/19 25 08/05/2024 CBC NO DIFF (HEMO GRAM) MCHC 33.8 g/dL 32-36 Not Available [facility] ([facility]) [address], [place], [address], 08/05/2024 16:01:39 08/06/19 25 08/05/2024 CBC NO DIFF (HEMO GRAM) RDW 13.2 % 11.5-1 4.0 Not Available [facility] ([facility]) [address], [place], [address], 08/05/2024 16:01:39 08/06/19 25 08/05/2024 CBC NO DIFF (HEMO GRAM) platelet count 235 K/uL 150-45 0 Not Available [facility] ([facility]) [address], [place], [address], 08/05/2024 16:01:39 08/06/19 25 08/05/2024 CBC NO DIFF (HEMO GRAM) MPV 9.5 fL 6-9.5 Not Available [facility] ([facility]) [address], [place], [address], 08/05/2024 16:01:39 08/06/19 25 08/05/2024 COMP METAB OLIC PANEL sodium 142 mmol/ L 136-14 5 Not Available [facility] ([facility]) [address], [place], [address], 08/05/2024 16:24:29 08/06/19 25 08/05/2024 COMP METAB OLIC PANEL potassium 4.0 mmol/ L 3.6-5. 0 Not Available [facility] ([facility]) [address], [place], [address], 08/05/2024 16:24:29 08/06/19 25 08/05/2024 COMP METAB OLIC PANEL chloride 105 mmol/ L 98-107 Not Available [facility] ([facility]) [address], [place], [address], 08/05/2024 16:24:29 08/06/19 25 08/05/2024 COMP METAB OLIC PANEL carbon dioxide 31.1 mmol/ L 21.0-3 2.0 Not Available [facility] ([facility]) [address], [place], [address], 08/05/2024 16:24:29 08/06/19 25 08/05/2024 COMP METAB OLIC PANEL anion gap 9.9 Not Available [facility] ([facility]) [address], [place], [address], 08/05/2024 16:24:29 08/06/19 25 08/05/2024 COMP METAB OLIC PANEL glucose 87 mg/dL 70-120 Not Available [facility] ([facility]) [address], [place], [address], 08/05/2024 16:24:29 08/06/19 25 08/05/2024 COMP METAB OLIC PANEL BUN 16 mg/dL 7-18 Not Available [facility] ([facility]) [address], [place], [address], 08/05/2024 16:24:29 08/06/19 25 08/05/2024 COMP METAB OLIC PANEL creatinine 1.1 mg/dL 0.6-1. 3 Not Available [facility] ([facility]) [address] , [place], [address], 08/05/2024 16:24:29 08/06/19 25 08/05/2024 COMP METAB OLIC PANEL glomerular filtration rate 58 mlper min 60- low GFR LIMIT ATION : The eGFR equat ion CKD-E PI 2020 is not appli cable for pedia tric patie nts or great er than 90 years of age. The follo wing condi tions may alter the GFR resul t: extre mes in body size, malnu triti on or obesi ty, skele vasquez muscl e disea se, parap legia or quadr ipleg ia, veget christen diet or rapid ly kingston ing kiney funct ion. Not Available [facility] ([facility]) [address] , [place], [address], 08/05/2024 16:24:29 08/06/19 25 08/05/2024 COMP METAB OLIC PANEL osmolality (calculated) 296 mOsm/ kg 275-30 1 OSMOL ALITY IS A CALCU LATIO N UTILI ZING THE SERUM /PLAS MA SODIU M, GLUCO SE AND UREA NITRO GEN (BUN) LEVEL S. FOR THE MOST ACCUR ATE RESUL T A MEASU RED SERUM OSMOL ALITY IS SUGJUD MAGDALENOD. Not Available [facility] ([facility]) [address] , [place], [address], 08/05/2024 16:24:29 08/06/19 25 08/05/2024 COMP METAB OLIC PANEL total protein 6.9 g/dL 6.4-8. 2 Not Available [facility] ([facility]) [address] , [place], [address], 08/05/2024 16:24:29 08/06/19 25 08/05/2024 COMP METAB OLIC PANEL albumin 3.9 g/dL 3.4-5. 0 Not Available [facility] ([facility]) [address] , [place], [address], 08/05/2024 16:24:29 08/06/19 25 08/05/2024 COMP METAB OLIC PANEL globulin 3.0 Not Available [facility] ([facility]) [address], [place], [address], 08/05/2024 16:24:29 08/06/19 25 08/05/2024 COMP METAB OLIC PANEL alb/glob ratio 1.3 0.7-2 Not Available [facility] ([facility]) [address], [place], [address], 08/05/2024 16:24:29 08/06/19 25 08/05/2024 COMP METAB OLIC PANEL calcium 9.1 mg/dL 8.5-10 .5 Not Available [facility] ([facility]) [address], [place], [address], 08/05/2024 16:24:29 08/06/19 25 08/05/2024 COMP METAB OLIC PANEL bilirubin total 0.30 mg/dL 0.10-1 .00 Not Available [facility] ([facility]) [address], [place], [address], 08/05/2024 16:24:29 08/06/19 25 08/05/2024 COMP METAB OLIC PANEL AST (SGOT) 11 U/L 0-37 Not Available [facility] ([facility]) [address], [place], [address], 08/05/2024 16:24:29 08/06/19 25 08/05/2024 COMP METAB OLIC PANEL ALT (SGPT) 27 U/L 0-65 Not Available [facility] ([facility]) [address] , [place], [address], 08/05/2024 16:24:29 08/06/19 25 08/05/2024 COMP METAB OLIC PANEL alk phosphatase 59 U/L 46-116 Not Available [facility] ([facility]) [address], [place], [address], 08/05/2024 16:24:29 Result Notes None recorded. Procedures Surgical History Date Name Laterality Status Provider Name and Address Organization Details Recorded Time 025 Cholecystectomy completed Renetta KWAN [facility] [place] 08/29/2024 10:34:19 tonsillectomy completed Haydee KWAN [facility] [place] 12/22/2023 11:25:32 procedure on ankle completed Bhupinder Mays [facility] [place] 08/05/2024 13:58:42 Imaging Results None recorded. Procedure Notes None recorded. Medical Equipment None Reported. Allergies Allergen ID Allergen Name Allergen Category Reaction Reaction Severity Criticality Documentation Date Start Date Code Code System Note Provider Name and Address Organization Details Recorded Time 798762 Product containin g penicilli n (product) medicatio n Not available Not available Not available 12/22/2023 95638 8001 SNOMED [facility] [place] 4 11:23:03 873906 morphine medicatio n Not available Not available Not available 12/22/2023 7052 RxNorm [facility] [place] 4 11:23:10 788104 Substance with sulfonami de structure and antibacte rial mechanism of action (substanc e) medicatio n Not available Not available Not available 12/22/2023 21842 [facility]003 [facility] Haydee alarcon AQUILES [facility] [place] 4 11:23:28 Medications Name Sig Start Date Stop Date Status Note LastModified by Organization Details LastModified Time furosemide 40 mg tablet TAKE 1 TABLET BY MOUTH DAILY NEEDED (SWELLING ). active Not Available Not Available No t Available bupropion HCl SR 150 mg tablet,12 hr sustained-r elease TAKE 1 TABLET BY MOUTH TWICE A DAY active Not Available Not Available No t Available paroxetine 10 mg tablet TAKE 1 TABLET BY MOUTH EVERY DAY IN THE MORNING active Not Available Not Available No t Available ciprofloxac in 750 mg tablet 12/21 completed Not Available Not Available Not Available azithromyci n 250 mg tablet TAKE 2 TABLETS BY MOUTH TODAY, THEN TAKE 1 TABLET DAILY FOR 4 DAYS DIRECTED 12/21 completed Not Available Not Available Not Available ibuprofen 800 mg tablet TAKE 1 TABLET BY MOUTH EVERY 8 (EIGHT) HOURS NEEDED FOR MILD PAIN (FOR MILD PAIN). active Not Available Not Available No t Available gabapentin 400 mg capsule TAKE 1 CAPSULE BY MOUTH THREE TIMES A DAY active Not Available Not Available No t Available vancomycin 125 mg capsule TAKE 1 CAPSULE BY MOUTH ONCE DAILY 12/21 completed Not Available Not Available Not Available OneTouch Ultra Test strips USE TO CHECK SUGARS DAILY active Not Available Not Available No t Available ibuprofen 600 mg tablet TAKE 1 TABLET BY MOUTH EVERY 6 HOURS 08/29 completed Not Available Not Available Not Available levofloxaci n 500 mg tablet TAKE 1 TABLET EVERY 24 HOURS BY ORAL ROUTE 08/29 completed Not Available Not Available Not Available levofloxaci n 750 mg tablet TAKE ONE TABLET BY MOUTH EVERY DAY FOR 7 DAYS -- FINISH ALL MEDICINE -- 12/21 completed Not Available Not Available Not Available Percocet 5 mg-325 mg tablet Take 1 tablet every 8 hours by oral route as needed. 08/29 completed Not Available Not Available Not Available ondansetron 4 mg disintegrat ing tablet PLACE 1 TABLET BY TRANSLING UAL ROUTE EVERY 6 HOURS NEEDED 08/29 completed Not Available Not Available Not Available cefdinir 300 mg capsule 08/05 completed Not Available Not Available Not Available ipratropium bromide 21 mcg (0.03 %) nasal spray INHALE 2 SPRAYS IN EACH NOSTRIL EVERY 12 HOURS DIRECTED BY PROVIDER 12/21 completed Not Available Not Available Not Available ezetimibe 10 mg tablet TAKE 1 TABLET BY MOUTH EVERY DAY active Not Available Not Available No t Available rosuvastati n 5 mg tablet TAKE 1 TABLET BY MOUTH EVERY DAY active Not Available Not Available No t Available OneTouch Ultra2 Meter USE TO CHECK SUGARS DAILY active Not Available Not Available No t Available OneTouch Delica Plus Lancet 33 gauge USE TO CHECK SUGARS DAILY active Not Available Not Available No t Available Vitals Date Recorded Body height Body mass index (BMI) Body weight Body temperature Oxygen saturation Oxygen saturation in Arterial blood by Pulse oximetry Heart rate Systolic And Diastolic Provider Name and Address Organization Details Last Updated DateTime 5 160.02 cm 35.2 kg/m2 21502.1 6 g 99.1 [degF] 96 % 96 % 74 /min 124/76 mm[Hg] Bhupinder KWAN - LPNT [facility] [place] 14:01:21 Date Recorded Body height Body mass index (BMI) Body weight Body temperature Heart rate Systolic And Diastolic Provider Name and Address Organization Details Last Updated DateTime 160.02 cm 35.3 kg/m2 59926.3 2 g 97.8 [degF] 77 /min 140/88 mm[Hg] Renetta Garza [facility] [place] 10:33:11 Date Recorded Body height Body mass index (BMI) Body weight Provider Name and Address Organization Details Last Updated DateTime 12/22/2023 160.02 cm 32.8 kg/m2 65536.59 g Haydee Sierra [facility] [place] 12/22/2023 11:22:49 Social History None recorded. Functional Status Question Answer Note LastModified by Organization D etails LastModified Time What is your level of alcohol consumption? None [email or web address] Information not available 12/22/2023 Mental Status None recorded. Family History Relationship Description Onset Age of this Age Resolved Age Notes LastModified by Organization Details LastModified Time Father Father cancer [email or web address] Not available 2024 10:28:32 Mother Myocardial infarction pt. added direct ly (08/02) [email or web address] Not available 08/02/2024 15:04:32 Mother Disorder of endocrine system pt. added direct ly (08/02) [email or web address] Not available 08/02/2024 15:05:00 Mother Hypertensive disorder pt. added direct ly (08/02) [email or web address] Not available 08/02/2024 15:05:18 Mother Allergy pt. added direct ly (08/02) [email or web address] Not available 08/02/2024 15:05:31 Mother Hearing loss pt. added direct ly (08/02) [email or web address] Not available 08/02/2024 15:05:51 Maternal Grandmother Myocardial infarction pt. added direct ly (08/02) [email or web address] Not available 08/02/2024 15:04:32 Paternal Grandfather Disorder of endocrine system pt. added direct ly (08/02) [email or web address] Not available 08/02/2024 15:05:00 Brother Disorder of endocrine system pt. added direct ly (08/02) [email or web address] Not available 08/02/2024 15:05:00 Medical History Condition Response Diabetes Y Kidney Stones Y Depression Y Gynecological HistoryNo gynecological history recorded. Obstetrics History GPAL:G 0 P 0 0 0 0 Past Encounters Encounter ID Performer Location Encounter Start Date Encounter Closed Date Diagnosis/Indication Diagnosis SNOMED-CT Code Diagnosis ICD10 Code Diagnosis IMO Codes Diagnosis Note [id number] Donald Foley Jr, MD [facility] [address] [address] 12/22/2023 10:47:32 12/22/2023 12:06:22 Occlusion of ureter due to calculus 81726934 N13.2 58-year-ol d white female with recent urosepsis secondary to an obstructin g left ureteral stone. She underwent stent placement with resolution of the urosepsis. She was having some moderate stent colic and wishes to have the stent removed. I discussed that we need to take care of the stone before we can remove the stent otherwise she will end up in the same predicamen t. I discussed ureterosco py, stone extraction with her. We did discuss possibilit y that the stent would need to be replaced short term. She wishes to proceed under general anesthesia . [id number] Cheryle Ortiz MD [facility] Gen S[facility] [address] [facility] [address] [place] [address] 08/05/2024 13:44:42 08/05/2024 14:56:17 [place] [id number] K80.20 647133 Symptomati c cholelithi asis. I have scheduled the patient for robotic assisted laparoscop ic multiport cholecyste ctomy. Informed consent was obtained. Risks and benefits of the procedure, including but not limited to, bleeding, infection, damage to surroundin g structures and ongoing symptoms were discussed. Standard of care efforts are taken to minimize risks. Typical hospital stay and recovery were reviewed. The typical postoperat nancy pain regimen and avoidance of narcotics were discussed. The patient verbalized understand ing of the plan including the risks and benefits. Appropriat e preoperati ve testing as clinically indicated were ordered as a part of this patient's care. Nausea and vomiting 1692 1999 R11.2 [id number] due to biliary colic. Will manage with Zofran. I have recommende d keeping hydrated. [id number] Cheryle Ortiz MD [facility] [address] [place] [address] 08/29/2024 10:27:43 08/29/2024 10:58:04 Cholelithiasis AND cholecystitis without obstruction 19990365 K80.10 [id number] Stable postop, no restrictio ns. Health Concerns Section Related Observation LastModified by Organization Detai ls LastModified Time None Recorded Concern Status LastModified by Organization Details LastModified Time None Recorded Advance Directives Directive None Recorded Payers Insurance Date Sequence Insurance Name Policy Number Policy Orta Covered Member ID Orta Member ID Guarantor Name 08/11/2024 2 [place] [employer] - FFS/TRADITIONA L Yaneth A Bettina [id number] Yaneth Bettina 04/27/2023 1 [employer] (POS) Yaneth Bettina [id number] Yaneth Bettina 08/26/2024 1 [employer] (MEDICARE REPLACEMENT/AD VANTAGE - HMO) Yaneth Bettina [id number] Yaneth Bettina 04/27/2023 1 [employer] [facility] H[facility] (MEDICAID HMO) Yaneth Bettina [id number] Yaneth Bettina 08/05/2024 1 [place] [facility] [place] MEDIBLUE PLUS (MEDICARE REPLACEMENT HMO) [id number] Yaneth Bettina [id number] Yaneth Bettina Notes Date Note Type Note Provider Name and Address Organization Details Recorded Time 12/22/2023 text/html ROS as noted in the HPI Patient is a 58-year-old white female status post recent left stent placement for urosepsis. She would pyonephrosis after the stent was placed. She was discharged home with antibiotics and returns today In follow-up. She is having some mild stent colic. Donald Foley Jr, MD [address] [place] [address], [address], [place], [address], [facility] 12/29/2023 12:31:43 08/05/2024 text/html 58-year-old woman referred for gallstones. She has had sharp, severe right upper quadrant pain for approximately 1 week. It is worse after eating and she has associated nausea and vomiting. She was seen in the ER, had CT imaging showing gallstones without evidence of ductal dilation or gallbladder wall thickening. Patient states she had CBC and CMP done at her PCP office, these are not available to me at this point. She has had recent intentional weight loss, followed by unintentional weight gain. Cheryle Ortiz MD [address], [place], [address], [place] [facility] [place] 08/05/2024 15:16:44 08/29/2024 text/html 2 weeks s/p robotic cholecystectomy. pathology shows gallstones and chronic cholecystitis. She has no complaints, feels well overall. Cheryle Ortiz MD [address], [place], [address], [place] [facility] [place] 08/29/2024 13:44:41 OBGyn Episode No OBEpisode recorded.
--- OUTSIDE RECORDS SUMMARY | 2025-03-10 12:40 | XMS_ITS | Clinical Summary ---
Author Organization [facility] ystem Address [address] [place] [address] Care Team Providers Care Laundry Worker Name Role Phone Callum Leiva MD Primary Care Provider [phone] Allergies Active Allergy Reactions Criticality Noted Date Comments Varenicline Tartrate Rash Low 10/22/2019 Influenza Virus Vaccine Swelling 03/13/2023 Morphine And Codeine Hives High 01/24/2016 Penicillins Shortness Of Breath High 01/24/2016 Sulfa Antibiotics GI Intolerance Medium 01/24/2016 Bactrim has been ok Medications lidocaine-prilocai ne (EMLA) 2.5-2.5 % cream 03/18/20 21 Active ketoconazole (NIZORAL) 2 % cream Dr. Yohannes Guzman 10/21/19 23 Active albuterol sulfate HFA 108 (90 Base) MCG/ACT inhalerIndications :Persistent cough for 3 weeks or longer INHALE 2 PUFFS EVERY 4 HOURS NEEDED FOR WHEEZING 8.5 g 2 11/10/19 23 Active aspirin 81 MG EC tablet Take 1 tablet by mouth Daily. 09/29/19 24 Active glucose blood test stripIndications:T ype 2 diabetes mellitus without complication, without long-term current use of insulin Check sugars daily 50 each 5 01/04/20 24 Active Lancets 30G miscIndications:Ty pe 2 diabetes mellitus without complication, without long-term current use of insulin Check sugars daily 50 each 01/04/20 24 Active furosemide (LASIX) 40 MG tabletIndications: Edema, unspecified type Take 1 tablet by mouth Daily As Needed (swelling). 90 tablet 1 07/09/19 25 Active ibuprofen (ADVIL,MOTRIN) 800 MG tablet TAKE 1 TABLET BY MOUTH EVERY 8 (EIGHT) HOURS NEEDED FOR MILD PAIN 90 tablet 09/18/19 25 Active ezetimibe (ZETIA) 10 MG tabletIndications: Mixed hyperlipidemia TAKE 1 TABLET EVERY DAY 90 tablet 1 12/06/19 25 Active buPROPion SR (WELLBUTRIN SR) 150 MG 12 hr tabletIndications: Depressed mood TAKE 1 TABLET TWICE DAILY 180 tablet 1 12/06/19 25 Active gabapentin (NEURONTIN) 400 MG capsuleIndications :Neuropathic pain Take 1 capsule by mouth 3 (Three) Times a Day. 270 capsule 1 02/05/20 25 Active PARoxetine (PAXIL) 10 MG tabletIndications: Depressed mood Take 1 tablet by mouth Every Morning. 90 tablet 1 02/05/20 25 Active rosuvastatin (CRESTOR) 10 MG tabletIndications: Mixed hyperlipidemia TAKE 1 TABLET EVERY DAY 90 tablet 02/18/20 25 Active rosuvastatin (Crestor) 10 MG tabletIndications: Mixed hyperlipidemia Take 1 tablet by mouth Daily. 90 tablet 1 09/28/19 25 025 Discontinued Active Problems Problem Noted Date Diagnosed Date [...] Encounters Date Type Department Care Team Description 02/18/2025 Results Follow-Up [facility] [address] [address] Callum Leiva MD 02/16/2025 Refill [facility] [address] [address] Callum Leiva MD Mixed hyperlipidemia 02/04/2025 11:00 AM EDT Office Visit [facility] [address] [address] Callum Leiva MD Type 2 diabetes mellitus without complication, without long-term current use of insulin (Primary Dx); Mixed hyperlipidemia; Neuropathic pain; Depressed mood; Encounter for screening mammogram for malignant neoplasm of breast 02/04/2025 Travel 01/27/2025 External [facility] Data [facility] [address], [place] [address] Pharmacy, [employer] Data 01/24/2025 Results Follow-Up [facility] [address] [place] [address] Callum Leiva MD 01/24/2025 Results Follow-Up [facility] [address] [place] [address] Callum Leiva MD 01/24/2025 Results Follow-Up [facility] [address] [place] [address] Callum Leiva MD 01/24/2025 Results Follow-Up [facility] [address] [place] [address] Callum Leiva MD 01/24/2025 Results Follow-Up [facility] [address] [place] [address] Callum Leiva MD 01/08/2025 Results Follow-Up [facility] [address] [place] [address] Callum Leiva MD 01/08/2025 Results Follow-Up [facility] [address] [place] [address] Callum Leiva MD 12/26/2024 Results Follow-Up [facility] [address] [place] [address] Inderjit Mireles MD 12/19/2024 Telephone [facility] [address] [place] [address] Callum Leiva MD ULTRASOUND REFERRAL 2024 12:15 PM EDT Office Visit [facility] [address] [address] Inderjit Mireles MD Mass of left ankle (Primary Dx) 2024 Travel 12/11/2024 Results Follow-Up [facility] [address] [address] Radha Porter, OJC from Last 3 Months Immunizations Immunization Administration Dates Next Due COVID-19 (PFIZER) Purple Cap Monovalent 03/18/20 21,02/25/2021 Hepatitis B Adult/Adolescent IM 07/07/2011,01/20,12/09/2010 MMR 12/09/2010 Tdap 12/09/2010 Family History Medical History Relation Name Comments Diabetes Brother Alberto Bettina Heart disease Brother Alberto Rabagotox Cancer Father Romeo Sampsonx /Lung C ancer Lung cancer Father Romeo Sampsonx 2014, mets to brain COPD Maternal Grandfather AIDEE Elroy Cancer Maternal Grandfather AIDEE Abbasi d Diabetes Mother Ramona Acosta Heart disease Mother Ramona Acosta Heart Attack Hyperlipidemia Mother Ramona Acosta Diabetes Paternal Grandfather Ora Bettina Relation Name Status Comments Brother Alberto Rabagotox Alive Father Romeo Forman (Age 74) Maternal Grandfather AIDEE Abbasi Mother [...] Mass Index 34.01 02/04/2025 10:59 AM EDT Plan of Treatment Upcoming Encounters Date Type Department Care Team (Late st Contact Info) Description 04/17/2025 11:00 AM EST Office Visit [facility] [address] [facility] [place] [address] Callum Leiva MD [address] [facility] [place] [address] Health Maintenance Due Date Last Done Comments [...] Pelvic an d Breast Exam 03/14/2024 03/13/2023 DIABETIC EYE EXAM 12/06/2024 12/07/2023 (Jimmie doss-Reported (Performed Externally)) ANNUAL WELLNESS VISIT 04/12/2025 04/12/2024 , 10/28/2022, 10/15/2021 LUNG CANCER SCREENING 04/19/2025 04/19/2024 URINE MICROALBUMIN-CREATININ E RATIO (uACR) 06/27/2025 06/27/2024 HEMOGLOBIN A1C 07/07/2025 01/07/2025, 09/06, 06/27/2024, Additional history exists LIPID PANEL 09/26/2025 09/26/2024, 06/09, 03/26/2024, Additional history exists PAP SMEAR 03/13/2026 03/13/2023, 05/2018 (Patient-Reported (Performed Externally)) MAMMOGRAM 02/12/2027 02/12/2025, 12/2024, 02/12/2025, Additional history exists COLOGUARD 04/11/2027 04/11/2024 COLORECTAL CANCER SCREENING 04/11/2027 HEPATITIS C SCREENING Completed 01/29/2016 Procedures Procedure Name Priority Date/Time Associated Diagnosis Comments MAMMO SCREENING DIGITAL TOMOSYNTHESIS BILATERAL W CAD Routine 02/12/2025 Encounter for screening mammogram for malignant neoplasm of breast SCANNED - LABS 01/15/2025 SCANNED - LABS 01/15/2025 SCANNED - LABS 01/15/2025 SCANNED - LABS 01/15/2025 SCANNED EKG 01/07/2025 SCANNED - LABS 01/07/2025 SCANNED - LABS 01/07/2025 US NONVASCULAR EXTREMITY LIMITED Routine 12/24/2024 Mass of left ankle HEMOGLOBIN A1C Routine 09/26/2024 11:55 AM EDT [...] Well female exam with routine gynecological exam POCT OCCULT BLOOD STOOL STAT 02/21/2016 2:39 PM EDT from Last 3 Months or Most Recently Relevant to Health Maintenance Results * Mammo Screening Digital Tomosynthesis Bilateral With CAD (02/12/2025) Anatomical Region Laterality Modality Breast N/A Mammography Callum Leiva MD G MAMMOGRAPHY ORDERABLES Juli l Result * LABS SCANNED (01/15/2025) Only the most recent of6 resultswithin the time period is included. Callum Leiva MD LAB BLOOD ORDERABLES Final Resu lt * ECG Scan (01/07/2025) Callum Leiva MD ECG ORDERABLES Final Result * US Nonvascular Extremity Limited (12/24/2024) Anatomical Region Laterality Modality Upper Extremities, Lower Extremities Ultrasound Inderjit Mireles MD [facility] US ORDERABLES Final Result * (ABNORMAL) Lipid Panel With [...] 11:5 5 AM EDT 09/26/2024 Narrative [facility] (AMBULATORY) - 09/27/2024 7:09 AM EDT Performed at: [address] [place] [id number] Donor Relations Coordinator: Ravi Jimenez PhD, Phone: [phone] Patient Fasting: Y us Callum Leiva MD LAB BLOOD ORDERABLES Final Resu lt Performing Organization Address [facility] Co de Phone Number [facility] ([facility]) [address] [place] [address], [facility] [address] [place] [address], * (ABNORMAL) Hemoglobin A1c (09/26/2024 11:55 AM EDT) [facility] Hemoglobin A1C 6.1(H) 4.8 - 5.6 % [facility] Comment: Prediabetes: 5.7 - 6.4 Diabetes: >6.4 Glycemic control for adults with diabetes: <7.0 Blood 09/26/2024 11:5 5 AM EDT 09/26/2024 Narrative [facility] (AMBULATORY) - 09/27/2024 7:09 AM EDT Performed at: [address] [place] [id number] Donor Relations Coordinator: aRvi Jimenez PhD, Phone: [phone] Patient Fasting: Y us Callum Leiva MD LAB BLOOD ORDERABLES Final Resu lt Performing Organization Address [facility] Co de Phone Number [facility] ([facility]UL[facility]) [address] [place] [address], [facility] [address] [place] [address], [place] [phone] * Albumin/Creatinine Ratio Urine (06/27/2024 11:42 AM EST) POC ALBUMIN, URINE 10 mg/L Comment:Normal POC [...] MD 04/19/2024 1:20 PM EST Workstation ID: [id number] Narrative 04/19/2024 1:[address] CHEST LOW DOSE CANCER SCREENING WO Date of Exam: 04/19/2024 12:54 PM EST Indication: Screening for lung cancer, 42-uhcx-inej history of smoking, COPD. Comparison: None available. [...] PM EST Indication: Screening for lung cancer, 82-ixti-xxrn history of smoking,COPD. Comparison: None available. Technique: [...] MD 04/19/2024 1:20 PM EST Workstation ID: [id number] Callum Leiva MD IM CT ORDERABLES Final Result * Cologuard - Stool, Per Rectum (04/11/2024 5:00 PM EST) Cologuard Negative Negative 04/19/2024 11:36 AM [facility] (CLIA #:[id number]) Comment: NEGATIVE TEST RESULT. A negative Cologuard [...] (Clarita Mari al, N Engl J Med 2014;370(14):6176-9799) The normal value (reference range) for this assay is negative. COLOGUARD RE-SCREENING RECOMMENDATION: Periodic colorectal cancer screening is an important part of preventive healthcare for asymptomatic individuals at average risk for colorectal cancer. Following a negative Cologuard result, the [place] Cancer Society and U.S. Multi-Society Task Force screening guidelines recommend a Cologuard re-screening interval of 3 years. References: [place] Cancer Society Guideline for Colorectal Cancer Screening: https://www.cancer.org/cancer/otrdm-fbginx-jkhncy/shegzhzjg-zllcxhvsk-mkcekvw/ac s-rec ommendations.html.; Chetan DK, Sarah CR, Gorge JaramilloK, Colorectal Cancer Screening: Recommendations for Physicians and Patients from the U.S. Multi-Society Task Force on Colorectal Cancer Screening , Am J Gastroenterology 2017; 112:2630-4100. TEST DESCRIPTION: Composite algorithmic analysis of stool [...] (Clarita Mari al, N Engl J Med 2014;370(14):2407-9121.) Cologuard may produce a false negative or false positive result (no colorectal cancer or precancerous polyp present at colonoscopy follow up). A negative Cologuard test result does not guarantee the absence of CRC or advanced adenoma (pre-cancer). The current Cologuard screening interval is every 3 years. ([place] Cancer Society and U.S. Multi-Society Task Force). Cologuard performance data in a 10,000 patient pivotal study using colonoscopy as the reference method can be accessed at the following location: www.[employer]/results. Additional description of the Cologuard test process, warnings and precautions can be found at www.Playrcartrd.Ceres. Stool specimen (specimen) Specimen from rectum / Unknown 04/11/2024 5:00 PM EST 04/13/2024 3:06 PM EST Callum Leiva MD BODY FLUIDS AND STOOLS ORDERABL ES Final Result [facility] (CLIA #:[id number]) [address] [place] [address], * LIQUID-BASED PAP SMEAR WITH HPV GENOTYPING REGARDLESS OF INTERPRETATION (KINZA,COR,MAD) (03/13/2023 2:12 PM EST) Reference Lab Report [facility] [address] [place] [address] or [phone] Kedar Turpin M.D., Hub Lead PATIENT NAME LABORATORY NO. 650 LAURA FORMAN [id number] AGE SEX SSN CLIENT REF # [facility] 57 1965 F [id number] [facility] REQUESTING Meenakshi ATTENDING Alec. COPY TO. Oumar [address] [address] DATE COLLECTED DATE RECEIVED DATE REPORTED 03/13/2023 [...] 51, 52, 56, 58, 59, 66, 68 [employer] SALESPERSON: YANIRA MONTALVO (ASCP) CPT CODES: 68959, [id number] 03/15/2023 10:22 AM EST [facility] ThinPrep Vial Cervix uteri structure / Unknown Collection / Unknown 03/13/2023 2:12 PM EST 03/13/2023 2:12 PM EST us Callum Leiva MD PATHOLOGY/CYTOLOGY ORDERABLES F inal Result [facility]
[address] [place] [address], * POCT Occult Blood, stool (02/21/2016 2:39 PM EDT) Fecal Occult Blood Negative [facility] Lot Number [id number] [facility] Expiration Date 04/24 [facility] DEVELOPER LOT NUMBER [id number] [facility] DEVELOPER EXPIRATION DATE 03/26 [facility] Positive Control Positive Positive [facility] Negative Control Negative Negative [facility] Stool Specimen from rectum / Unknown 02/21/2016 2:39 PM EDT us Lester Garcia MD POINT OF CARE TEST ORDERABLES Final Result [facility]
[address] [place] [address], [place] [phone] from Last 3 Months or Most Recently Relevant to Health Maintenance Insurance [employer] MEDICARE ADVANTAGE [facility] HMO Advance Directives * Full Code (Latest Code Status on File) Date Activated Date Inactivated Comments 02/21/2016 10:53 PM 02/23/2016 5:20 PM * Full Code Date Activated Date Inactivated Comments 01/24/2016 5:51 PM 01/28/2016 1:22 PM Question Answer Comments Level Of Support Discussed With: needs clarification Care Teams Laundry Worker Relationship Specialty Start Date End Date Callum Leiva MD [address] [place] [address] PCP - General Family Medicine 10/22/19
--- OUTSIDE RECORDS SUMMARY | 2025-03-10 12:40 | XMS_ITS | Encounter Summary ---
Author Organization [facility] ystem Address [address] [place] [address] Care Team Providers Care Geosciences Associate Professor Name Role Phone Callum Leiva MD Primary Care Provider [phone] Encounter Details Date Type Department Care Team (Late st Contact Info) Description 01/24/2025 Results Follow-Up [facility] [address] [facility] [place] [address] Callum Leiva MD [address] [place] [address] Social History Tobacco Use Types [...] Description 04/17/2025 11:00 AM EST Office Visit [facility] [address] [place] [phone] Callum Leiva MD [address] [place] [address] documented as of this encounter Visit Diagnoses Not on filedocumented in this encounter Care Teams Geosciences Associate Professor Relationship Specialty Start Date End Date Callum Leiva MD [address] [place] [address] PCP - General Family Medicine 10/22/19 documented as of this encounter
--- OUTSIDE RECORDS SUMMARY | 2025-03-10 12:40 | XMS_ITS | Encounter Summary ---
Author Organization [facility] ystem Address [address] [place] [address] Care Team Providers Care Email Specialist Name Role Phone Callum Leiva MD Primary Care Provider [phone] Encounter Details Date Type Department Care Team (Late st Contact Info) Description 02/18/2025 Results Follow-Up [facility] [address] [facility] [place] [address] Callum Leiva MD [address] [place] [address] Social History Tobacco Use Types [...] [facility] [address] [place] [id number] Callum Leiva MD [address] [place] [address] documented as of this encounter Visit Diagnoses Not on filedocumented in this encounter Care Teams Email Specialist Relationship Specialty Start Date End Date Callum Leiva MD [address] [place] [address] PCP - General Family Medicine 10/22/19 documented as of this encounter
--- OUTSIDE RECORDS SUMMARY | 2025-03-10 12:40 | XMS_ITS | Encounter Summary ---
Author Organization [facility] ystem Address [address] [place] [address] Care Team Providers Care Director Trading Name Role Phone Callum Leiva MD Primary Care Provider [phone] Encounter Details Date Type Department Care Team (Late st Contact Info) Description 09/27/2024 Results Follow-Up [facility] [address] [facility] [address] Callum Leiva MD [address] [place] [address] Social History Tobacco Use Types [...] [facility] [address] [place] [phone] Callum Leiva MD [address] [place] [address] documented as of this encounter Visit Diagnoses Diagnosis Mixed hyperlipidemia documented in this encounter Care Teams Director Trading Relationship Specialty Start Date End Date Callum Leiva MD [address] [place] [address] PCP - General Family Medicine 10/22/19 documented as of this encounter
--- OUTSIDE RECORDS SUMMARY | 2025-03-10 12:40 | XMS_ITS | Clinical Summary ---
Author Organization [facility] Address [address] [place] [address] Phone Care Team Providers Care Cylinder Steamer Name Role Phone Hao ROBERSON, Brant Jaramillo [facility] [ ] Conditions or Problems Problem Name Problem Code Onset Date Status Entry Date Provider Comment Standard Description Annotate Diarrhea [id number] (SNOMED CT) 01/31 Active 01/31 Brant Bui MD Diarrhea Hematuria, microscopic [id number] (SNOMED CT) 01/27 Active 01/27 Sofia Nilton [...] Instructions Start Date Stop Date Generic Name [facility] Provider INVANZ 1 GM INTRAVENOUS SOLUTION RECONSTITUTED 1gm IV Q24hrs/ INPAT ERTAPENEM SODIUM [id number] Niki Barreto RN INVANZ 1 GM INTRAVENOUS SOLUTION RECONSTITUTED 1gm IV Q24hrs/ INPAT ERTAPENEM SODIUM [id number] Lacie Keturah FLORASTOR 250 MG CAPS by mouth twice daily SACCHAROMYCES BOULARDII [id number] Teodoro P PERCOCET 5-325 MG TABS 1-2 tabs by mouth as needed every six hours OXYCODONE-ACETAM INOPHEN [id number] Teodoro P ALEVE 220 MG CAPS by mouth twice daily as needed NAPROXEN SODIUM 41469249579 Teodoro P BUPROPION HCL ER (SMOKING DET) 150 MG [id number]-VRN by mouth twice daily BUPROPION HCL (SMOKING DETER) [id number] Teodoro P Medications Administered No information available. [...] antibiotics 2015 CPT-cwl Weekly Labs (Continue) 01/31 CPT-02047 CMP [id number] CBC with Differential 2015 CPT- stat weekly Stat Weekly Labs [address]75 Hepatitis C Atb: (ICD 10 Code: Z11.59) [...] Weight Measured 174.2 [lb_av] weight E& M Weight Measured 174.2 [lb_av] weight E& M Height 64 [in_us] height E&M Immunizations No information available. Advance Directives Directive Description Start Date NO ADVANCED DIRECTIVES
--- OUTSIDE RECORDS SUMMARY | 2025-03-10 12:40 | XMS_ITS | Encounter Summary ---
Author Organization [facility] Address [address] [place] [address] Care Team Providers Care Concert Singer Name Role Phone Callum Leiva MD Primary Care Provider [phone] Encounter Details Date Type Department Care Team (Latest Contact Info) Description 02/04/2025 Travel Social History Tobacco Use Types Packs/Day [...] PM EDT documented as of this encounter Functional Status documented as of this encounter Plan of Treatment Upcoming Encounters Date Type Department Care Team (Late st Contact Info) Description 04/17/2025 11:00 AM EST Office Visit [facility] [address] [place] [address] Callum Leiva MD [address] [place] [address] documented as of this encounter Visit Diagnoses Not on filedocumented in this encounter Care Teams Concert Singer Relationship Specialty Start Date End Date Callum Leiva MD [address] [place] [address] PCP - General Family Medicine 10/22/19 documented as of this encounter
--- OUTSIDE RECORDS SUMMARY | 2025-03-10 12:40 | XMS_ITS | Encounter Summary ---
Author Organization [facility] ystem Address [address] [place] [address] Care Team Providers Care Casket Liner Name Role Phone Callum Leiva MD Primary Care Provider [phone] Encounter Details Date Type Department Care Team (Late st Contact Info) Description 07/31/2024 Results Follow-Up [facility] [address] [place] [address] Inderjit Mireles MD [address] [place] [address] Social History Tobacco Use Types [...] Description 04/17/2025 11:00 AM EST Office Visit [facility] [address] [place] [address] Callum Leiva MD [address] [place] [address] documented as of this encounter Visit Diagnoses Not on filedocumented in this encounter Care Teams Casket Liner Relationship Specialty Start Date End Date Callum Leiva MD [address] [place] [address] PCP - General Family Medicine 10/22/19 documented as of this encounter
--- OUTSIDE RECORDS SUMMARY | 2025-03-10 12:40 | XMS_ITS | Encounter Summary ---
Author Organization [facility] ystem Address [address] [place] [address] Care Team Providers Care Columnist/Commentator Name Role Phone Callum Leiva MD Primary Care Provider [phone] Reason for Visit * Reason Comments Med Refill Encounter Details Date Type Department Care Team (Late st Contact Info) Description 02/16/2025 Refill [facility] [address] [place] [address] Callum Leiva MD [address] [place], [place] [id number] Mixed hyperlipidemia Social History Tobacco Use Types Packs/Day Years [...] Description 04/17/2025 11:00 AM EST Office Visit [facility] [address] [place] [phone] Callum Leiva MD [address] [id number] documented as of this encounter Visit Diagnoses Diagnosis Mixed hyperlipidemia documented in this encounter Care Teams Columnist/Commentator Relationship Specialty Start Date End Date Callum Leiva MD [address] [place] [address] PCP - General Family Medicine 10/22/19 documented as of this encounter
--- OUTSIDE RECORDS SUMMARY | 2025-03-10 12:40 | XMS_ITS | Encounter Summary ---
Author Organization [facility] ystem Address [address] [place] [address] Care Team Providers Care Ichthyology Teacher Name Role Phone Callum Leiva MD Primary Care Provider [phone] Encounter Details Date Type Department Care Team (Late st Contact Info) Description 01/24/2025 Results Follow-Up [facility] [address] [facility] [place] [address] Callum Leiva MD [address] [place] [address] Social History Tobacco Use Types [...] Description 04/17/2025 11:00 AM EST Office Visit [facility] [address] [place] [phone] Callum Leiva MD [address] [place] [address] documented as of this encounter Visit Diagnoses Not on filedocumented in this encounter Care Teams Ichthyology Teacher Relationship Specialty Start Date End Date Callum Leiva MD [address] [place] [address] PCP - General Family Medicine 10/22/19 documented as of this encounter
--- OUTSIDE RECORDS SUMMARY | 2025-03-10 12:40 | XMS_ITS | Encounter Summary ---
Author Organization [facility] ystem Address [address] [place] [address] Care Team Providers Care Associate Partner Name Role Phone Callum Leiva MD Primary Care Provider [phone] Encounter Details Date Type Department Care Team (Late st Contact Info) Description 01/08/2025 Results Follow-Up [facility] [address] [facility] [address] Callum Leiva MD [address] [place] [address] Social History Tobacco Use Types [...] [facility] [address] [place] [phone] Callum Leiva MD [address] [place] [address] documented as of this encounter Visit Diagnoses Not on filedocumented in this encounter Care Teams Associate Partner Relationship Specialty Start Date End Date Callum Leiva MD [address] [place] [address] PCP - General Family Medicine 10/22/19 documented as of this encounter
--- OUTSIDE RECORDS SUMMARY | 2025-03-10 12:40 | XMS_ITS | Encounter Summary ---
Author Organization [facility] ystem Address [address] [place] [address] Care Team Providers Care Garden Tractor Mechanic Name Role Phone Callum Leiva MD Primary Care Provider [phone] Encounter Details Date Type Department Care Team (Late st Contact Info) Description 01/24/2025 Results Follow-Up [facility] [address] [facility] [address] Callum Leiva MD [address] [place] [address] Social History Tobacco Use Types [...] Description 04/17/2025 11:00 AM EST Office Visit [facility] [address] [place] [phone] Callum Leiva MD [address] [place] [address] documented as of this encounter Visit Diagnoses Not on filedocumented in this encounter Care Teams Garden Tractor Mechanic Relationship Specialty Start Date End Date Callum Leiva MD [address] [place] [address] PCP - General Family Medicine 10/22/19 documented as of this encounter
[2025-03-10 13:00] LABS: Blood Urea Nitrogen 16 mg/dl (7-17); Creatinine,Serum 1.10 mg/dl (0.52-1.04); Estimated Glomerular Filt Rate 50 ml/min (>60); GFR (African American) 61 ML/MIN (>60)
--- NOTE | 2025-03-10 13:00 | MR_ITS ---
FINAL REPORT TECHNIQUE: Multiplanar MR imaging of the right foot was performed with and without contrast. CLINICAL HISTORY: Evaluate progression of deformity. prior surgery 5-6 years ago. medial sided ankle pain. Prior fasciotomy. COMPARISON: 04/19/2019 FINDINGS: There is no evidence of fracture or marrow edema. There is multijoint degenerative disease. A spur is noted along the inferior calcaneus. The Lisfranc articulation is intact. The Lisfranc ligament appears intact. No fluid collections are identified. The intrinsic muscles of the foot appear normal in size and signal intensity. The Achilles tendon is intact. There is thickening of the plantar fascia without fluid-filled defect. There are no areas of abnormal contrast-enhancement. IMPRESSION: No acute osseous abnormality or pathologic marrow enhancement. Multijoint degenerative disease. Thickening of the plantar fascia without evidence of plantar fascia tear. Plantar fasciitis not excluded. Authenticated and ERN
[2025-03-10] MEDS: GADOTERIDOL INJ 20ML SYRINGE 18 ML IV (14:34)
[2025-03-10] MEDS: SODIUM CHLORIDE 0.9% 10ML SYR (RAD ONLY) 10 ML IV (14:34)
== END 2025-03-10 23:59 | disposition home or self-care (01) ==
LOC: RAD 12:37
PROVIDERS: PCP Family Medicine; Visit Provider Podiatrist
DX: M19.071 Primary osteoarthritis, right ankle and foot (principal); G57.51 Tarsal tunnel syndrome, right lower limb; R29.898 Other symptoms and signs involving the musculoskeletal system; R93.6 Abnormal findings on diagnostic imaging of limbs
CPT/HCPCS: 36415; 73720; 82565; 84520; A9576